=== PATIENT | female | born 1975 | race Caucasian/White ===

== ENCOUNTER → 2017-06-01 21:02 | Outpatient (CLI) | payer BC, MEDICARE, SELFPAY | PROVIDERS: Visit Provider Nurse Practitioner Adult Health | DX: R82.99 Other abnormal findings in urine (principal) | CPT/HCPCS: 87086; 87088; 87186 ==

== ENCOUNTER → 2017-11-30 16:30 | Outpatient (CLI) | payer BC, MEDICARE, SELFPAY ==
--- NOTE | 2017-11-30 | CYSPIN_PTH ---
PATIENT: ALLI PABLO LOC: [facility] U#:[id number] AGE/SX: 49/F ROOM: RE11/30/[address]: MOLLY Gant : 1975 BED: DIS: SPEC #: [id number] RECD: 12/01/17 13:45 STATUS: KALIA ZENY #: [id number] DELVIN: 11/30/17 00:[address]: Janelle Arita NP DEPT: CYTOLOGY RECD BY: Kartik Valdez Tissues: Urine Procedures: Pap Stain (control) Special Stain Group II Cytospin Fluid HEADER OPERATION: Not noted PRE-OP DIAGNOSIS: Hematuria TISSUE SUBMITTED: Urine for cytology DIAGNOSIS CYTOLOGY Urine for cytology (cytospin): Negative for malignant cells. Marked acute inflammation. See comment. LESLI:adan 12/02/17 COMMENT Repeat cytology is suggested if clinically indicated after treatment of inflammation. CYTOLOGY STUDY Slides are reviewed. CYTOLOGY GROSS Received is 10 ml of yellow cloudy fluid labeled with the patient's name and and designated per the requisition as urine. Submitted for cytology preparation. / 12/01/17 TC:2 CPT: 63916
[2017-11-30 17:22] LABS: Cytology, Body Fluid / CSF SEE PATHOLOGY REPORT
== END ==
PROVIDERS: Referring Provider Nurse Practitioner Adult Health; Visit Provider Nurse Practitioner Adult Health
DX: R31.9 Hematuria, unspecified (principal)
CPT/HCPCS: 88108; 88313

== ENCOUNTER → 2017-12-17 17:53 | Outpatient (CLI) | payer BC, MEDICARE, SELFPAY ==
--- NOTE | 2017-12-17 16:45 | CYSPIN_PTH ---
PATIENT: ALLI PABLO LOC: [facility] U#:[id number] AGE/SX: 49/F ROOM: RE12/17/[address]: Dr. Apolinar Eller MD : 1975 BED: DIS: SPEC #: [id number] RECD: 12/18/17 10:58 STATUS: KALIA ZENY #: [id number] DELVIN: 12/17/17 16:[address]: Apolinar Eller DEPT: CYTOLOGY RECD BY: Bebeto Ray Tissues: Urine Procedures: Pap Stain (control) Special Stain Group II Cytospin Fluid HEADER OPERATION: Not noted PRE-OP DIAGNOSIS: UTI, hematuria TISSUE SUBMITTED: Urine for cytology DIAGNOSIS CYTOLOGY Urine for cytology (cytospin): Negative for malignant cells. Marked acute inflammation. See comment. LESLI:adan 12/21/17 COMMENT Please make reference to previous specimen ([id number]), urine for cytology with diagnosis of negative for malignant cells and marked acute inflammation. Repeat cytology is suggested if clinically indicated after treatment of inflammation. CYTOLOGY STUDY Slides are reviewed. CYTOLOGY GROSS Received is 20 ml of cloudy yellow fluid labeled with the patient's name and and designated per the requisition as urine. Submitted for cytology preparation. / 12/18/17 TC:2 CPT: 04273
[2017-12-17 17:56] LABS: Cytology, Body Fluid / CSF SEE PATHOLOGY REPORT
== END ==
PROVIDERS: Referring Provider Urology; Visit Provider Urology
DX: N39.0 Urinary tract infection, site not specified (principal); R31.9 Hematuria, unspecified
CPT/HCPCS: 87086; 87088; 87186; 88108; 88313

== ENCOUNTER → 2017-12-24 14:29 | Outpatient (CLI) | payer BC, MEDICARE, SELFPAY ==
--- NOTE | 2017-12-24 14:36 | CT_ITS ---
STUDY: CT ABDOMEN AND PELVIS WITH CONTRAST REASON FOR EXAM: Female, 42 years old. Painful urination. Possible colovesical fistula. RADIATION DOSAGE (If Supplied By Facility): CTDIvol = ( 15.91 ) mGy, DLP = ( 2611.54 ) mGycm TECHNIQUE: Transaxial images were obtained from the dome of the diaphragm to the symphysis pubis with oral and rectal contrast. 75mL ml of Isovue 300 contrast was administered. Sagittal and coronal images were reconstructed. Individualized dose optimization techniques were used for this CT. COMPARISON: Comparison is made with prior examination dated April 19, 2016. FINDINGS: The visualized lung bases are unremarkable. The visualized portions of the heart are within normal limits. Minimal degree of dilated intrahepatic biliary ducts. The common bile duct is not dilated. The gallbladder is not visualized consistent with prior cholecystectomy. Normal spleen. Normal pancreas. Normal bilateral adrenal glands. Normal right kidney. There is moderate atrophy of the left kidney. There is a 4.5 mm rounded calcification in the anterior lateral aspect of the left kidney. This is unchanged. Normal visualized stomach. Normal small intestine. Moderate amount of fecal material is seen in the colon. There is non-visualization of the appendix. Normal abdominal aorta. Normal inferior vena cava. Normal retroperitoneum. Normal urinary bladder. There is no evidence of a colovesical fistula. There is absence of the uterus consistent with a prior hysterectomy. Normal abdominal wall. Normal osseous structures. CT/Abdomen/Pelvis WITH Contrast IMPRESSION: Moderate amount of fecal material is seen in the colon. Status post cholecystectomy and hysterectomy. There is no evidence of colovesical fistula. Atrophy of the left kidney with tiny calcification along its anterior lateral aspect. Electronically Signed: Tejas Carlson MD at 10:59 EDT Tel [phone], Service support ,
[2017-12-24 15:21] LABS: CREATININE FINGERSTICK 1.1 mg/dL (0.55-1.02)
--- NOTE | 2017-12-24 15:45 | NURSING ---
PT STS SHE HAS A NEW PORT PUT IN AT [facility] MAIN THAT DOESN'T REQUIRE HEPARIN ON [facility]. PT ADAMANT TO NOT USE HEPARIN AT [facility]. PORT FLUSHED WITH ONLY 10 CC NS.
== END ==
PROVIDERS: Family Provider Family Medicine; PCP Family Medicine; Referring Provider Urology; Visit Provider Urology
DX: K52.9 Noninfective gastroenteritis and colitis, unspecified (principal); R39.89 Other symptoms and signs involving the genitourinary system; R93.89 Abnormal findings on diagnostic imaging of other specified body structures
CPT/HCPCS: 74177; Q9967; A4216

== ENCOUNTER 2018-01-01 11:01 | Day surgery (SDC) | payer BC, MEDICARE, SELFPAY ==
[2018-01-01 12:51] VITALS: BP 103/56; PULSE 64; RESP 16; TEMP 36.9; O2SAT 100; BMI 26.7
[2018-01-01 13:13] LABS: Hematocrit 36.8 % (37-47); Mean Corp Hgb Conc 32.6 g/gl (32-36); Mean Corpuscular Hgb 29.8 pg (27.0-32.0); Mean Corpuscular Volume 91.3 fL (81-99); Mean Platelet Vol. 9.4 fl (6.2-12.0); Platelet Count 184 K/mm3 (150-450); RBC Distribution Width SD 43.3 fl (35.1-43.9); Red Blood Count 4.03 M/mm3 (4.2-5.4); White Blood Count 2.4 K/mm3 (4.4-11.0)
[2018-01-01 13:16] LABS: Partial Thromboplast Time 28.1 Seconds (24.1-36.2); Prothrombin Time (Protime)PT. 13.3 SECONDS (11.7-14.9); Scan Indicated on CBC? Y/N NO
[2018-01-01 13:24] LABS: AST(SGOT) 10 U/L (15-37); Alanine Aminotransfer ALT/SGPT 31 U/L (13-56); Albumin, Serum 3.8 g/dL (3.2-5.0); Alkaline Phosphatase 49 U/L (45-117); Bilirubin, Direct 0.17 mg/dL (0.00-0.30); Globulin 3.2 g/dL (2.2-4.2)
--- NOTE | 2018-01-01 14:30 | BLB_PTH ---
PATIENT: ALLI PABLO [place] [facility] [place][id number] AGE/SX: 42/F ROOM: RE01/01/[address]: Dr. Apolinar Eller MD : 1975 BED: DIS: 01/01/2018 SPEC #: [id number] RECD: 01/01/18 16:07 STATUS: KALIA ZENY #: [id number] DLEVIN: 01/01/18 14:[address]: Apolinar Eller DEPT: SURGICAL PATHOLOGY RECD BY: Rakesh Holcomb ENTERED: 01/04/18 11:27 SP TYPE: TURB OTHR DR: Dr. Erik Ibrahim MD Tissues: Urinary bladder, NOS Procedures: Surgery Specimen Level V HEADER OPERATION: Cysto, transurethral resection bladder, [employer] PRE-OP DIAGNOSIS: Hematuria; bladder lesion TISSUE SUBMITTED: Bladder lesion MICROSCOPIC DIAGNOSIS Urinary bladder lesion, TUR: Acute and chronic cystitis with reactive vascular ectasia and epithelial change. No evidence of malignancy. AM:adan 01/05/18 MICROSCOPIC DESCRIPTION Slides are reviewed. GROSS DESCRIPTION Received in fixative is one container labeled with the patient's name and designated bladder lesion. The specimen consists of one irregular fragment of light hi soft tissue that measures 0.3 x 0.1 x 0.1 cm. The specimen is totally submitted in one cassette. / SJ:adan 01/04/18 TC:2 CPT: 77681
--- NOTE | 2018-01-01 15:18 | PCM.DC.URO ---
Discharge Diet: Light diet - advance as tolerated Discharge Activity: Return to Normal Activity, May not drive while taking narcotic pain medications., May Shower Call your doctor if your incision/area has: Continuous Slow Oozing, Sudden Increased Bleeding, Increased Pain/ Swelling, Increased Redness, Foul Smelling Discharge, Swelling at the incision site Suture Line Care: Avoid Pulling/Pushing, Avoid Pinching/Bending Allergies/Adverse Reactions: Allergies adhesive tape Allergy (Verified 01/01/18 13:01) Rash aspirin [ASA] Allergy (Verified 01/01/18 13:01) Unknown cefpodoxime Allergy (Verified 01/01/18 13:01) Rash cephalexin [From Keflex] Allergy (Verified 01/01/18 13:01) Upset Stomach ciprofloxacin Allergy (Verified 01/01/18 13:01) Hives diclofenac Allergy (Verified 01/01/18 13:01) Rash gabapentin [From Neurontin] Allergy (Verified 01/01/18 13:01) Unknown latex Allergy (Verified 01/01/18 13:01) Rash levofloxacin [From Levaquin] Allergy (Verified 01/01/18 13:01) redness,rash nitrofurantoin Allergy (Verified 01/01/18 13:01) Unknown Penicillins Allergy (Verified 01/01/18 13:01) Anaphylaxis prednisone Allergy (Verified 01/01/18 13:01) Unknown pregabalin Allergy (Verified 01/01/18 13:01) Unknown norfloxacin [From Noroxin] Adverse Reaction (Verified 01/01/18 13:01) Upset Stomach phenytoin [From Dilantin] Adverse Reaction (Verified 01/01/18 13:01) loss of balance alvogen Allergy (Uncoded 01/01/18 13:01) Rash Medications to take at Discharge Baclofen [Lioresal] 10 mg PO QHS 04/15/16 Cholecalciferol (Vitamin D3) [Vitamin D3] 5,000 unit PO DAILY 04/15/16 Lisinopril [Zestril] 5 mg PO QODAY 04/15/16 Lorazepam [Ativan] 1 mg PO QHS 04/15/16 Lysine [l-Lysine] 1,000 mg PO DAILY 04/15/16 Mirabegron [Myrbetriq] 50 mg PO DAILY 04/15/16 Solifenacin Succinate [Vesicare] 10 mg PO QHS 04/15/16 Topiramate [Topamax] 200 mg PO QHS 04/15/16 Ascorbic Acid [Vitamin C] 1,000 mg PO QHS 12/28/17 Coconut Oil 2,000 mg PO DAILY 12/28/17 Cranberry Conc/Ascorbic Acid [Cranberry 12,600 mg Softgel] 1 each PO DAILY 12/28/17 Herbal Drugs [Colon Herbal Cleanser] 2 each PO QHS 12/28/17 Tizanidine HCl [Zanaflex] 2 mg PO QHS 12/28/17 Hydrocodone Bitart/Apap 5-325 [[place] 5MG-325MG] 1 tab PO Q4H PRN PRN 5 Days #10 tab 01/01/18 Hydrocodone/Acetaminophen [Hebron 5-325 Tablet] 1 ea PO Q4H PRN PRN 3 Days #10 tab 01/01/18 The following prescriptions were given: Hydrocodone Bitart/Apap 5-325 [Hebron 5MG-325MG] 1 tab PO Q4H PRN PRN 5 Days #10 tab PRN Reason: Pain Hydrocodone/Acetaminophen [Hebron 5-325 Tablet] 1 ea PO Q4H PRN PRN 3 Days #10 tab PRN Reason: Pain Primary Care Physician: Erik Ibrahim MD [Primary Care Provider] - Test Results: Test results from this visit will be discussed in further detail at your follow-up appointment, if applicable. Please Follow Up With: Apolinar Eller MD When: in 2 weeks, please call to make an appointment.
--- NOTE | 2018-01-01 15:21 | OP.PCM_ITS ---
Report of Operation Date of Procedure: 01/01/18 Pre-Operative Diagnosis: Gross hematuria and bladder lesion erythema on the left lateral wall the bladder Post-Operative Diagnosis: Same Surgery/Procedure Performed:: Transurethral resection of this bladder lesion and rollerball cauterization. Description of Surgical Findings:: 42-year-old female taken back to the operating room at the smooth induction of general anesthesia she was placed supine on the table the urethra vaginal area prepped and draped in usual sterile fashion on bimanual exam she had no palpable hard masses or nodules or abnormalities ureter was nice and soft the bladder is nice and soft, I then went to the bladder with a 24 Hungarian noncontinuous flow cystoscope inspected the bladder trigone was normal she did have cystitis cystica throughout the bladder with raised cystic lesions throughout the bladder but in the left lateral wall the bladder she had a very red dark red at the erythematous lesion somewhat concerning for CIS this was seen in the office on cystoscopy. I then switched over to the resectoscope resected this reddish lesion tissue was sent off as a specimen and then used a rollerball to then rollerball the reddish lesion on the lateral side of the bladder. After this was completed there was no bleeding the bladder was drained no perforation of the bladder. Left no catheter and the patient and patient's anesthetic was reversed taken back to PACU good condition she will follow-up in the office about 2 weeks to review the results of the tissue report. Type of Anesthesia:: General Specimen's removed: tissue from bladder Estimated Blood Loss (mL): minimal. - Admit VTE Documentation VTE Present on Admission: No VTE Mechan Device Prophylaxis: SCD's VTE Pharm Prophylaxis ordered?: No
[2018-01-01 15:24] VITALS: BP 100/59; BP 103/56; PULSE 77; RESP 16; TEMP 36.2; O2SAT 97
[2018-01-01 15:30] VITALS: BP 103/56; BP 93/59; PULSE 58; RESP 16; O2SAT 96
[2018-01-01] MEDS: Ketorolac 30 MG/ML Syringe IV (15:35)
[2018-01-01 15:45] VITALS: BP 103/56; BP 88/62; PULSE 54; RESP 16; O2SAT 95
[2018-01-01 16:00] VITALS: BP 103/56; BP 92/65; BP 93/57; PULSE 57; PULSE 59; RESP 16; TEMP 36.3; O2SAT 97; O2SAT 98
[2018-01-01] MEDS: HYDROcodone Bitartrate/Apap 5/325 Tablet PO (16:27)
[2018-01-01 18:40] VITALS: BP 103/56; BP 87/56; PULSE 50; RESP 16; TEMP 36.1; O2SAT 100
== END 2018-01-01 18:40 | disposition home or self-care (01) ==
LOC: SDC 11:01
PROVIDERS: Anesthesiology; Family Provider Family Medicine; PCP Family Medicine; Referring Provider Urology; Visit Provider Urology
PROC: 0TBB8ZZ Excision of Bladder, Via Natural or Artificial Opening Endoscopic (ICD-10-PCS; CPT 52240; principal; 2018-01-01 14:20)
DX: N30.01 Acute cystitis with hematuria (principal); N30.21 Other chronic cystitis with hematuria; J45.20 Mild intermittent asthma, uncomplicated; F41.9 Anxiety disorder, unspecified; G35 Multiple sclerosis; Z79.899 Other long term (current) drug therapy
CPT/HCPCS: 00912; 52240; 36415; 80076; 85027; 85610; 85730; 88307; J7120; A4216; J2405

== ENCOUNTER 2018-01-04 15:49 | Inpatient (IN) | payer BC, MEDICARE, SELFPAY ==
[2018-01-04 15:50] VITALS: BP 110/75; PULSE 94; RESP 18; TEMP 37; O2SAT 100; BMI 26.2
[2018-01-04 16:10] VITALS: BP 120/82; PULSE 98; RESP 16; O2SAT 99
[2018-01-04 16:58] LABS: Mucous, Urine 0 SEEN /hpf (<or=2+)
[2018-01-04 17:04] LABS: Color, Urine Yellow (Yellow); Glucose, Dipstick Normal (Normal); Leukocyte Esterase-Dipstick 500 /ul (Negative); Nitrite-Dipstick Positive (Negative); Occult Blood-Urine 250 /ul (Negative); Protein-Dipstick 100 mg/dl (Negative); Urine Clarity Cloudy (Clear); Urine Urobilinogen 1 mg/dl (Normal)
[2018-01-04 17:08] LABS: Ketone-Dipstick 150 mg/dl (Negative); Urine Bilirubin Dipstick 1 mg/dL (Negative)
[2018-01-04] MEDS: 0.9% Normal Saline 1,000 ML 1000 ML IV (17:11)
[2018-01-04] MEDS: proMETHazine 25 MG/ML Syringe 6.25 MG IV (17:11)
[2018-01-04 17:18] LABS: Bacteria 4+ /hpf (None Seen); Red Blood Cells-Urine 25-50 SEEN /hpf (0-5); Squamous Epithelial Cells - UA 0-5 SEEN /hpf (5-10); White Blood Cells >100 SEEN /hpf (0-5)
[2018-01-04 17:23] LABS: Absolute Lymphocyte Count 0.98 X10^3/ul (0.83-4.51); Absolute Neutrophil Count 3.4 X10^3/uL (2.0-7.7); Basophil# 0.01 X10^3/uL; Basophil% 0.2 % (0-1); Hematocrit 34.5 % (37-47); Hemoglobin 11.2 g/dl (12.0-15.0); Lymphocyte # 0.98 X10^3/ul (4.0); Lymphocyte % 20.6 % (19-41); Mean Corp Hgb Conc 32.5 g/gl (32-36); Mean Corpuscular Hgb 29.8 pg (27.0-32.0); Mean Corpuscular Volume 91.8 fL (81-99); Mean Platelet Vol. 9.5 fl (6.2-12.0); Monocyte# 0.37 X10^3/uL; Monocyte% 7.8 % (0-10); Neutrophil # 3.39 X10^3/uL (2.7-7.7); Neutrophil % 71.4 % (47-70); Platelet Count 155 K/mm3 (150-450); RBC Distribution Width CV 12.6 % (11.6-14.6); RBC Distribution Width SD 41.9 fl (35.1-43.9); Red Blood Count 3.76 M/mm3 (4.2-5.4); White Blood Count 4.8 K/mm3 (4.4-11.0)
[2018-01-04 17:25] LABS: POSITIVE COUNT NO; POSITIVE DIFFERENTIAL NO; POSITIVE MORPHOLOGY NO
[2018-01-04 17:31] LABS: Anion Gap 13 (5-15); BUN 17 mg/dL (7-18); BUN/Creat Ratio 13.9 RATIO (10-20); Calcium,Total 8.7 mg/dL (8.5-10.1); Chloride 106 mmol/L (98-107); Creatinine, Serum 1.22 mg/dL (0.55-1.02); EST Glomerular Filtration Rate 51 mL/min (>60); Est Glom Filt Rate - Afr Amer 62 mL/min (>60); Estimated Creatinine Clearance 57.22 ml/min; Glucose 70 mg/dL (74-106); Potassium 3.9 mmol/L (3.5-5.1); Sodium Level 140 mmol/L (136-145)
[2018-01-04 18:00] VITALS: BP 105/64; PULSE 100; RESP 20; O2SAT 99
--- NOTE | 2018-01-04 18:08 | ED.VISSUMM ---
- ER Visit Summary Date of Service: 01/04/18 Chief Complaint: Abdominal pain, foul smelling urine History of Present Illness: The patient is a 42 F with history of MS. Patient had a bladder biopsy on January [address] Eller. Patient reports having a poor appetite and nausea all weekend. She does report dysuria and foul-smelling urine. She denies hematuria. She has not noted a fever, but states she rarely gets fevers. Physical Examination: Blood pressure is 120/82, temperature 98.6, heart rate 98, respiratory rate 16, pulse ox 99% on room air. Patient sitting upright in bed. She appears ill but not toxic. Head and neck examination unremarkable. Heart is regular rate and rhythm. Lung sounds are clear. Abdomen is soft with mild tenderness in the suprapubic region. No guarding or rebound. Hypoactive bowel sounds are noted throughout. Test Results: CBC is unremarkable. Chemistry studies significant for glucose of 70 and a creatinine 1.22. Urinalysis is positive for nitrites, grade than 100 white cells with 4+ bacteria. Emergency Department Course and Treatment: Urine culture has been sent. Patient was given IV fluids and Phenergan. Patient has multiple antibiotic allergies. I did review an infectious disease note from last year when she was given meropenem for similar infection. She is dosed with meropenem at this time. I spoke with Dr. Eller and he will admit her to the floor. Treatment Plan: [] Disposition: Admit Impression: Cystitis This note was generated with [employer] dictation software. It may contain incorrect words, spelling, and punctuation that were not noted in review of the chart prior to signing ED Disposition - Plan for ED Patient: Chief Complaint: General Illness Referrals: Erik Ibrahim MD [Primary Care Provider] -
[2018-01-04] MEDS: 0.9% Normal Saline 1,000 ML 150 ML IV (18:10)
--- NOTE | 2018-01-04 18:33 | PCM.CONS.GEN ---
Problem List (1) UTI (urinary tract infection) Status: Acute Qualifiers: Urinary tract infection type: acute pyelonephritis Qualified Code(s): N10 - Acute pyelonephritis (2) Overweight (BMI 25.0-29.9) Status: Chronic (3) Migraines Status: Chronic Qualifiers: Migraine type: unspecified Status migrainosus presence: without status migrainosus Intractability: not intractable Qualified Code(s): G43.909 - Migraine, unspecified, not intractable, without status migrainosus (4) Type 2 diabetes mellitus Status: Chronic Qualifiers: Diabetes mellitus nursing home insulin use: without nursing home use Diabetes mellitus complication status: without complication Qualified Code(s): E11.9 - Type 2 diabetes mellitus without complications (5) Multiple sclerosis Status: Chronic Reason for Consult Date of Consultation: 01/04/18 Reason for Consultation: Medical management History of Present Illness: The patient is a 42 y/o F w/ PMHx: Overweight, Multiple Sclerosis following w/ Dr. Jono Morrow, Chronic Migraines, CKD stage III (Baseline Cr 1.4), Diabetes mellitus type II history noted (Hgb 07/2013 5.3%) with history of recent bladder biopsy per Dr. Eller on 01/01/18 with following onset decreased appetite, nausea without emesis and severe suprapubic pain w/ increased urinary frequency and foul smelling urine. In the ED work-up noted T 98.6, heart rate 100, BP 105/64, respiratory rate 18, 100% on room air, CBC with WBC 4.8, hemoglobin 11.2, platelet 155 without market shift, BMP with BUN/creatinine 17/1.22, glucose 70, urinalysis notably remarkable with pending urine culture. In the ED patient administered normal saline, Phenergan as well as IV meropenem given allergies. ED noted to hospitalist physician intention for Dr. Eller to consult to the hospitalist service for medical management. Reviewed patient with Dr. Eller upon her admission. Past Medical History Past Medical History (Chronic Problems): Chronic Problems Overweight (BMI 25.0-29.9) (Chronic) Migraines (Chronic) Type 2 diabetes mellitus (Chronic) Multiple sclerosis (Chronic) Allergies adhesive tape Allergy (Verified 01/04/18 15:53) Rash aspirin [ASA] Allergy (Verified 01/04/18 15:53) Unknown cefpodoxime Allergy (Verified 01/04/18 15:53) Rash ciprofloxacin Allergy (Verified 01/04/18 15:53) Hives diclofenac Allergy (Verified 01/04/18 15:53) Rash gabapentin [From Neurontin] Allergy (Verified 01/04/18 15:53) Unknown latex Allergy (Verified 01/04/18 15:53) Rash levofloxacin [From Levaquin] Allergy (Verified 01/04/18 15:53) redness,rash nitrofurantoin Allergy (Verified 01/04/18 15:53) Unknown Penicillins Allergy (Verified 01/04/18 15:53) Anaphylaxis prednisone Allergy (Verified 01/04/18 15:53) Unknown pregabalin Allergy (Verified 01/04/18 15:53) Unknown cephalexin [From Keflex] Adverse Reaction (Verified 01/04/18 17:55) Upset Stomach norfloxacin [From Noroxin] Adverse Reaction (Verified 01/04/18 15:53) Upset Stomach phenytoin [From Dilantin] Adverse Reaction (Verified 01/04/18 15:53) loss of balance alvogen Allergy (Uncoded 01/04/18 15:53) Rash Home Medications: Ambulatory Orders Medication Instructions Recorded Baclofen [Lioresal] 10 mg PO QHS 04/15/16 Cholecalciferol (Vitamin D3) 5,000 unit PO DAILY 04/15/16 [Vitamin D3] Lisinopril [Zestril] 5 mg PO QODAY 04/15/16 Lorazepam [Ativan] 1 mg PO QHS 04/15/16 Lysine [l-Lysine] 1,000 mg PO DAILY 04/15/16 Mirabegron [Myrbetriq] 50 mg PO DAILY 04/15/16 Solifenacin Succinate [Vesicare] 10 mg PO QHS 04/15/16 Topiramate [Topamax] 200 mg PO QHS 04/15/16 Coconut Oil 2,000 mg PO DAILY 12/28/17 Cranberry Conc/Ascorbic Acid 1 each PO DAILY 12/28/17 [Cranberry 12,600 mg Softgel] Herbal Drugs [Colon Herbal 2 each PO QHS 12/28/17 Cleanser] Tizanidine HCl [Zanaflex] 2 mg PO QHS 12/28/17 Hydrocodone Bitart/Apap 5-325 1 tab PO Q4H PRN PRN 5 Days #10 tab 01/01/18 [[place]ulvane 5MG-325MG] Phenazopyridine HCl [Pyridium] 200 mg PO TID #20 tab 01/01/18 Ascorbic Acid [C-1000] 1,000 mg PO QHS 01/04/18 Ondansetron [Zofran Odt] 4 mg PO TID PRN 01/04/18 Surgical History: - - x2, bladder sling surgery with mesh, hysterectomy, cholecystectomy, tonsillectomy, hammertoe surgery bilaterally, recent bladder biopsy. 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 Paternal History Items: Cancer - Bladder cancer, COPD, Diabetes, Heart Disease Offspring History Items: - - mental health Review of Systems Constitutional: Reports: Anorexia, Chills, Malaise, Weakness, Fatigue. Denies: Fever, Weight Change HEENT: Denies: Head Aches, Sinus Congestion, Sinus Drainage Cardiovascular: Denies: Chest Pain, Palpitations Respiratory: Denies: Cough, Shortness of breath at rest, Sputum production Gastrointestinal: Reports: Abdominal Pain, Nausea. Denies: Vomiting Genitourinary: Reports: Dysuria, Frequency, Urgency Musculoskeletal: Denies: Joint Pain, Joint Tenderness Skin: Denies: Rash, Wounds Neurological: Denies: Numbness, Tingling, Focal weakness Psychiatric: Reports: Anxiety. Denies: Depression, Homicidal Ideations, Suicidal Ideations Hematologic/ Lymphatic: Reports: Anemia. Denies: Easy Bruising, Easy Bleeding Subjective: Laying in the ED bed, fatigued and ill-appearing. Objective: Physical Examination: General: awake, alert, oriented x 3 and cooperative, seated upright in the ED bed, fatigued and ill-appearing. Skin: normal color, turgor, no icterus, cyanosis. HEENT: AT/NC, EOMI, PERRLA, dry MM, no carotid bruits or JVD noted. Lungs: CTA bilaterally, moderate effort, mild decrease BL bases, no rales, ronchi or wheezing. Heart: Mildly tachycardic w/ regular rhythm; no gallop, rub audible. Abdomen: soft, severe suprapubic TTP, ND, hypoactive BS, difficult to assess HSM secondary to pain. Extremities: no cyanosis, clubbing, or edema. Neurological: patient awake, alert, oriented x 3; cognitive function intact; pupils equally reactive to light and accomodation; cranial nerves II-XII grossly normal, moving all 4 extremities, no focal deficits, strength severely globally decreased secondary to acute presentation. Psychiatric: affect appears fatigued, no acute evidence of depressive or anxiety feelings. - Physical Exam Vital Signs Temp Pulse Resp BP Pulse Ox 98.6 F 100 20 H 105/64 99 01/04/18 15:50 01/04/18 18:00 01/04/18 18:00 01/04/18 18:00 01/04/18 18:00 Oxygen Delivery Method Room Air Weight: 167 lb Body Mass Index (BMI) 26.2 Laboratory Tests Past 24 Hrs 01/04/18 01/04/18 01/04/18 16:55 17:03 17:03 WBC 4.8 RBC 3.76 L Hgb 11.2 L Hct 34.5 L MCV 91.8 MCH 29.8 MCHC 32.5 RDW 12.6 RDW Differential 41.9 Plt Count 155 MPV 9.5 Immature Gran % (Auto) 0.000 Neut % (Auto) 71.4 H Lymph % (Auto) 20.6 Mcleod % (Auto) 7.8 Eos % (Auto) 0.0 Baso % (Auto) 0.2 Absolute Neuts (auto) 3.4 Absolute Lymphs (auto) 0.98 Total Counted Not Reportable Sodium 140 Potassium 3.9 Chloride 106 Carbon Dioxide 21.0 Anion Gap 13 BUN 17 Creatinine 1.22 H Estim Creat Clear Calc 57.22 Est GFR (MDRD) Af Amer 62 Est GFR (MDRD) Non-Af 51 L BUN/Creatinine Ratio 13.9 Glucose 70 L Calcium 8.7 Urine Color Yellow Urine Clarity Cloudy Urine pH 5.0 Ur Specific Baskin 1.020 Urine Protein 100 H Urine Glucose (UA) Normal Urine Ketones 150 H Urine Occult Blood 250 H Urine Nitrite Positive H Urine Bilirubin 1 H Urine Urobilinogen 1 H Ur Leukocyte Esterase 500 H Urine RBC 25-50 SEEN Urine WBC >100 SEEN Ur Squamous Epith Cells 0-5 SEEN Urine Bacteria 4+ Urine Mucus 0 SEEN Assessment/Plan All Active Problems Pyelonephritis (Acute) UTI (urinary tract infection) (Acute) The patient is a 42 y/o F w/ PMHx: Overweight, Multiple Sclerosis following w/ Dr. Jono Morrow, Chronic Migraines, CKD stage III, ? Diabetes mellitus type II with history of recent bladder biopsy per Dr. Eller on 01/01/18 with following onset decreased appetite, nausea without emesis and severe suprapubic pain w/ increased urinary frequency and foul smelling urine. (1) Acute Complicated Urinary Tract Infection s/p Recent Bladder Bx: Admitted to MS per Dr. Eller, medicine consultation requested, UA upon ED evaluation remarkable, pending UCx, admission CBC not marked but severe appearing UA as noted, continue IVFs, monitor I/Os, continue IV meropenem given allergies w/ transition as able pending sensitivities and speciation. ID consulted, pending per Dr. Eller preference. No Bld cx were obtained in the ED prior to abx regimen. Requested bladder scans for retention w/ straight catheterization if appropriate. (2) Chronic Kidney Disease Stage III: Admission BUN/Cr 17/1.22, baseline renal function 1.4, repeat BMP in AM. (3) Multiple Sclerosis: Patient following w/ Dr. Jono Morrow, continue home mirabegron on regimen. (4) Chronic migraines: Continue home Topamax regimen. (5) ? Diabetes mellitus type II: Noted history, last HgbA1c 5.3% 2013, possibly only diet controlled, HgBA1c pending, allowance of clears secondary to severity of nausea and may ascertain further needs pending level. (6) Overweight: Lifestyle and diet changes encouraged. (7) DVT prophylaxis: SCDs, heparin. Code Visit Office Visits / Consults: [id number] IP Consult L3
--- NOTE | 2018-01-04 18:39 | CON.PCM_ITS ---
Problem List (1) UTI (urinary tract infection) Status: Acute Qualifiers: Urinary tract infection type: acute pyelonephritis Qualified Code(s): N10 - Acute pyelonephritis (2) Overweight (BMI 25.0-29.9) Status: Chronic (3) Migraines Status: Chronic Qualifiers: Migraine type: unspecified Status migrainosus presence: without status mi grainosus Intractability: not intractable Qualified Code(s): G43.909 - Migraine, unspecified, not intractable, without status migrainosus (4) Type 2 diabetes mellitus Status: Chronic Qualifiers: Diabetes mellitus usp insulin use: without usp use Diabetes mellitus complication status: without complication Qualified Code(s): E11.9 - Type 2 diabetes mellitus without complications (5) Multiple sclerosis Status: Chronic Reason for Consult Date of Consultation: 01/04/18 Reason for Consultation: Medical management History of Present Illness: The patient is a 42 y/o F w/ PMHx: Overweight, Multiple Sclerosis following w/ Dr. Jono Morrow, Chronic Migraines, CKD stage III (Baseline Cr 1.4), Diabetes mellitus type II history noted (Hgb 07/2013 5.3%) with history of recent bladder biopsy per Dr. Eller on 01/01/18 with following onset decreased appetite, nausea without emesis and severe suprapubic pain w/ increased urinary frequency and foul smelling urine. In the ED work-up noted T 98.6, heart rate 100, BP 105/64, respiratory rate 18, 100% on room air, CBC with WBC 4.8, hemoglobin 11.2, platelet 155 without market shift, BMP with BUN/creatinine 17/1.22, glucose 70, urinalysis notably remarkable with pending urine culture. In the ED patient administered normal saline, Phenergan as well as IV meropenem given allergies. ED noted to hospitalist physician intention for Dr. Eller to consult to the hospitalist service for medical management. Reviewed patient with Dr. Eller upon her admission. Past Medical History Past Medical History (Chronic Problems): Chronic Problems Overweight (BMI 25.0-29.9) (Chronic) Migraines (Chronic) Type 2 diabetes mellitus (Chronic) Multiple sclerosis (Chronic) Allergies adhesive tape Allergy (Verified 01/04/18 15:53) Rash aspirin [ASA] Allergy (Verified 01/04/18 15:53) Unknown cefpodoxime Allergy (Verified 01/04/18 15:53) Rash ciprofloxacin Allergy (Verified 01/04/18 15:53) Hives diclofenac Allergy (Verified 01/04/18 15:53) Rash gabapentin [From Neurontin] Allergy (Verified 01/04/18 15:53) Unknown latex Allergy (Verified 01/04/18 15:53) Rash levofloxacin [From Levaquin] Allergy (Verified 01/04/18 15:53) redness,rash nitrofurantoin Allergy (Verified 01/04/18 15:53) Unknown Penicillins Allergy (Verified 01/04/18 15:53) Anaphylaxis prednisone Allergy (Verified 01/04/18 15:53) Unknown pregabalin Allergy (Verified 01/04/18 15:53) Unknown cephalexin [From Keflex] Adverse Reaction (Verified 01/04/18 17:55) Upset Stomach norfloxacin [From Noroxin] Adverse Reaction (Verified 01/04/18 15:53) Upset Stomach phenytoin [From Dilantin] Adverse Reaction (Verified 01/04/18 15:53) loss of balance alvogen Allergy (Uncoded 01/04/18 15:53) Rash Home Medications: Ambulatory Orders Medication Instructions Recorded Baclofen [Lioresal] 10 mg PO QHS 04/15/16 Cholecalciferol (Vitamin D3) 5,000 unit PO DAILY 04/15/16 [Vitamin D3] Lisinopril [Zestril] 5 mg PO QODAY 04/15/16 Lorazepam [Ativan] 1 mg PO QHS 04/15/16 Lysine [l-Lysine] 1,000 mg PO DAILY 04/15/16 Mirabegron [Myrbetriq] 50 mg PO DAILY 04/15/16 Solifenacin Succinate [Vesicare] 10 mg PO QHS 04/15/16 Topiramate [Topamax] 200 mg PO QHS 04/15/16 Coconut Oil 2,000 mg PO DAILY 12/28/17 Cranberry Conc/Ascorbic Acid 1 each PO DAILY 12/28/17 [Cranberry 12,600 mg Softgel] Herbal Drugs [Colon Herbal 2 each PO QHS 12/28/17 Cleanser] Tizanidine HCl [Zanaflex] 2 mg PO QHS 12/28/17 Hydrocodone Bitart/Apap 5-325 1 tab PO Q4H PRN PRN 5 Days #10 tab 01/01/18 [[place] 5MG-325MG] Phenazopyridine HCl [Pyridium] 200 mg PO TID #20 tab 01/01/18 Ascorbic Acid [C-1000] 1,000 mg PO QHS 01/04/18 Ondansetron [Zofran Odt] 4 mg PO TID PRN 01/04/18 Surgical History: - - x2, bladder sling surgery with mesh, hysterectomy, cholecystectomy, tonsillectomy, hammertoe surgery bilaterally, recent bladder biopsy. 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 Paternal History Items: Cancer - Bladder cancer, COPD, Diabetes, Heart Disease Offspring History Items: - - mental health Review of Systems Constitutional: Reports: Anorexia, Chills, Malaise, Weakness, Fatigue. Denies: Fever, Weight Change HEENT: Denies: Head Aches, Sinus Congestion, Sinus Drainage Cardiovascular: Denies: Chest Pain, Palpitations Respiratory: Denies: Cough, Shortness of breath at rest, Sputum production Gastrointestinal: Reports: Abdominal Pain, Nausea. Denies: Vomiting Genitourinary: Reports: Dysuria, Frequency, Urgency Musculoskeletal: Denies: Joint Pain, Joint Tenderness Skin: Denies: Rash, Wounds Neurological: Denies: Numbness, Tingling, Focal weakness Psychiatric: Reports: Anxiety. Denies: Depression, Homicidal Ideations, Suicidal Ideations Hematologic/ Lymphatic: Reports: Anemia. Denies: Easy Bruising, Easy Bleeding Subjective: Laying in the ED bed, fatigued and ill-appearing. Objective: Physical Examination: General: awake, alert, oriented x 3 and cooperative, seated upright in the ED bed, fatigued and ill-appearing. Skin: normal color, turgor, no icterus, cyanosis. HEENT: AT/NC, EOMI, PERRLA, dry MM, no carotid bruits or JVD noted. Lungs: CTA bilaterally, moderate effort, mild decrease BL bases, no rales, ronchi or wheezing. Heart: Mildly tachycardic w/ regular rhythm; no gallop, rub audible. Abdomen: soft, severe suprapubic TTP, ND, hypoactive BS, difficult to assess HSM secondary to pain. Extremities: no cyanosis, clubbing, or edema. Neurological: patient awake, alert, oriented x 3; cognitive function intact; pupils equally reactive to light and accomodation; cranial nerves II-XII grossly normal, moving all 4 extremities, no focal deficits, strength severely globally decreased secondary to acute presentation. Psychiatric: affect appears fatigued, no acute evidence of depressive or anxiety feelings. - Physical Exam Vital Signs Temp Pulse Resp BP Pulse Ox 98.6 F 100 20 H 105/64 99 01/04/18 15:50 01/04/18 18:00 01/04/18 18:00 01/04/18 18:00 01/04/18 18:00 Oxygen Delivery Method Room Air Weight: 167 lb Body Mass Index (BMI) 26.2 Laboratory Tests Past 24 Hrs 01/04/18 01/04/18 01/04/18 16:55 17:03 17:03 WBC 4.8 RBC 3.76 L Hgb 11.2 L Hct 34.5 L MCV 91.8 MCH 29.8 MCHC 32.5 RDW 12.6 RDW Differential 41.9 Plt Count 155 MPV 9.5 Immature Gran % (Auto) 0.000 Neut % (Auto) 71.4 H Lymph % (Auto) 20.6 [place] % (Auto) 7.8 Eos % (Auto) 0.0 Baso % (Auto) 0.2 Absolute Neuts (auto) 3.4 Absolute Lymphs (auto) 0.98 Total Counted Not Reportable Sodium 140 Potassium 3.9 Chloride 106 Carbon Dioxide 21.0 Anion Gap 13 BUN 17 Creatinine 1.22 H Estim Creat Clear Calc 57.22 Est GFR (MDRD) Af Amer 62 Est GFR (MDRD) Non-Af 51 L BUN/Creatinine Ratio 13.9 Glucose 70 L Calcium 8.7 Urine Color Yellow Urine Clarity Cloudy Urine pH 5.0 Ur Specific [place] 1.020 Urine Protein 100 H Urine Glucose (UA) Normal Urine Ketones 150 H Urine Occult Blood 250 H Urine Nitrite Positive H Urine Bilirubin 1 H Urine Urobilinogen 1 H Ur Leukocyte Esterase 500 H Urine RBC 25-50 SEEN Urine WBC >100 SEEN Ur Squamous Epith Cells 0-5 SEEN Urine Bacteria 4+ Urine Mucus 0 SEEN Assessment/Plan All Active Problems Pyelonephritis (Acute) UTI (urinary tract infection) (Acute) The patient is a 42 y/o F w/ PMHx: Overweight, Multiple Sclerosis following w/ Dr. Jono Morrow, Chronic Migraines, CKD stage III, ? Diabetes mellitus type II with history of recent bladder biopsy per Dr. Eller on 01/01/18 with following onset decreased appetite, nausea without emesis and severe suprapubic pain w/ increased urinary frequency and foul smelling urine. (1) Acute Complicated Urinary Tract Infection s/p Recent Bladder Bx: Admitted to [facility] per Dr. Eller, medicine consultation requested, UA upon ED evaluation remarkable, pending UCx, admission CBC not marked but severe appearing UA as noted, continue IVFs, monitor I/Os, continue IV meropenem given allergies w/ transition as able pending sensitivities and speciation. ID consulted, pending per Dr. Eller preference. No Bld cx were obtained in the ED prior to abx regimen. Requested bladder scans for retention w/ straight catheterization if appropriate. (2) Chronic Kidney Disease Stage III: Admission BUN/Cr 17/1.22, baseline renal function 1.4, repeat BMP in AM. (3) Multiple Sclerosis: Patient following w/ Dr. Jono Morrow, continue home mirabegron on regimen. (4) Chronic migraines: Continue home Topamax regimen. (5) ? Diabetes mellitus type II: Noted history, last HgbA1c 5.3% 2013, possibly only diet controlled, HgBA1c pending, allowance of clears secondary to severity of nausea and may ascertain further needs pending level. (6) Overweight: Lifestyle and diet changes encouraged. (7) DVT prophylaxis: SCDs, heparin. Code Visit Office Visits / Consults: [id number] IP Consult L3
[2018-01-04 18:59] VITALS: BMI 26.2
[2018-01-04 19:36] VITALS: BP 118/57; PULSE 88; RESP 22; TEMP 37.1; O2SAT 100
[2018-01-04 20:19] LABS: Hemoglobin A1c 5.2 % (4.2-6.3)
[2018-01-04] MEDS: Morphine 4 MG/ML Syringe IV (21:13)
[2018-01-04] MEDS: Ondansetron 4 MG/2 ML Vial IV (21:13)
[2018-01-05] MEDS: Morphine 4 MG/ML Syringe IV ×2 (00:28→05:49)
[2018-01-05 01:42] VITALS: BP 99/51; PULSE 88; RESP 18; TEMP 37.1; O2SAT 97
[2018-01-05] MEDS: 0.9% Normal Saline 1,000 ML 125 ML IV (05:17)
[2018-01-05 05:41] LABS: Absolute Lymphocyte Count 0.83 X10^3/ul (0.83-4.51); Absolute Neutrophil Count 2.9 X10^3/uL (2.0-7.7); Basophil# 0.01 X10^3/uL; Basophil% 0.3 % (0-1); Hematocrit 31.8 % (37-47); Hemoglobin 10.2 g/dl (12.0-15.0); Lymphocyte # 0.83 X10^3/ul (4.0); Lymphocyte % 20.8 % (19-41); Mean Corp Hgb Conc 32.1 g/gl (32-36); Mean Corpuscular Hgb 29.7 pg (27.0-32.0); Mean Corpuscular Volume 92.7 fL (81-99); Mean Platelet Vol. 9.7 fl (6.2-12.0); Monocyte# 0.31 X10^3/uL; Monocyte% 7.8 % (0-10); Neutrophil # 2.85 X10^3/uL (2.7-7.7); Neutrophil % 71.1 % (47-70); Platelet Count 154 K/mm3 (150-450); RBC Distribution Width CV 12.9 % (11.6-14.6); RBC Distribution Width SD 43.6 fl (35.1-43.9); Red Blood Count 3.43 M/mm3 (4.2-5.4)
[2018-01-05 05:42] LABS: POSITIVE COUNT NO; POSITIVE DIFFERENTIAL NO; POSITIVE MORPHOLOGY NO
[2018-01-05] MEDS: Ondansetron 4 MG/2 ML Vial IV ×2 (05:49→15:51)
[2018-01-05 05:57] LABS: Anion Gap 13 (5-15); BUN 21 mg/dL (7-18); BUN/Creat Ratio 17.5 RATIO (10-20); Calcium,Total 8.3 mg/dL (8.5-10.1); Chloride 112 mmol/L (98-107); EST Glomerular Filtration Rate 52 mL/min (>60); Est Glom Filt Rate - Afr Amer 63 mL/min (>60); Estimated Creatinine Clearance 58.18 ml/min; Glucose 60 mg/dL (74-106); Potassium 4.2 mmol/L (3.5-5.1); Sodium Level 144 mmol/L (136-145)
[2018-01-05] MEDS: Phenazopyridine 95 MG Tablet 190 MG PO ×3 (06:30→21:05)
--- NOTE | 2018-01-05 06:48 | PCM.HP.STD ---
History of Present Illness Date of Admission: 01/05/18 Chief Complaint: Not feeling well and nausea can keep food down dehydration The patient is a 42 year old female who underwent a cystoscopy bladder biopsy and fulguration of the lesion in the bladder she has a history of recurrent very resistant bladder infections. She was treated preoperatively with appropriate course of antibiotics for her urinary tract infection she was given preoperative antibiotics for the procedure. She underwent to the procedure last week uneventfully but called and went to the emergency room with nausea vomiting. She is admitted for supposed UTI we will see what the cultures reveal. Urine test was positive for blood and nitrite and leukocytes but she did had recent bladder surgery sometimes this could be positive as a result of surgery, will await cultures nevertheless at this point will admit the patient because she is not tolerating food and liquids and also has nausea and vomiting. Other potential etiologies of her admission could just be intolerance nausea vomiting because of bladder pain discomfort pain medicine and recent procedure. Past Medical History Past Medical History (Chronic Problems): Chronic Problems Overweight (BMI 25.0-29.9) (Chronic) Migraines (Chronic) Type 2 diabetes mellitus (Chronic) Multiple sclerosis (Chronic) Allergies adhesive tape Allergy (Verified 01/04/18 15:53) Rash aspirin [ASA] Allergy (Verified 01/04/18 15:53) Unknown cefpodoxime Allergy (Verified 01/04/18 15:53) Rash ciprofloxacin Allergy (Verified 01/04/18 15:53) Hives diclofenac Allergy (Verified 01/04/18 15:53) Rash gabapentin [From Neurontin] Allergy (Verified 01/04/18 15:53) Unknown latex Allergy (Verified 01/04/18 15:53) Rash levofloxacin [From Levaquin] Allergy (Verified 01/04/18 15:53) redness,rash nitrofurantoin Allergy (Verified 01/04/18 15:53) Unknown Penicillins Allergy (Verified 01/04/18 15:53) Anaphylaxis prednisone Allergy (Verified 01/04/18 15:53) Unknown pregabalin Allergy (Verified 01/04/18 15:53) Unknown cephalexin [From Keflex] Adverse Reaction (Verified 01/04/18 17:55) Upset Stomach norfloxacin [From Noroxin] Adverse Reaction (Verified 01/04/18 15:53) Upset Stomach phenytoin [From Dilantin] Adverse Reaction (Verified 01/04/18 15:53) loss of balance alvogen Allergy (Uncoded 01/04/18 15:53) Rash Home Medications: Ambulatory Orders Medication Instructions Recorded Baclofen [Lioresal] 10 mg PO QHS 04/15/16 Cholecalciferol (Vitamin D3) 5,000 unit PO DAILY 04/15/16 [Vitamin D3] Lisinopril [Zestril] 5 mg PO QODAY 04/15/16 Lorazepam [Ativan] 1 mg PO QHS 04/15/16 Lysine [l-Lysine] 1,000 mg PO DAILY 04/15/16 Mirabegron [Myrbetriq] 50 mg PO DAILY 04/15/16 Solifenacin Succinate [Vesicare] 10 mg PO QHS 04/15/16 Topiramate [Topamax] 200 mg PO QHS 04/15/16 Coconut Oil 2,000 mg PO DAILY 12/28/17 Cranberry Conc/Ascorbic Acid 1 each PO DAILY 12/28/17 [Cranberry 12,600 mg Softgel] Herbal Drugs [Colon Herbal 2 each PO QHS 12/28/17 Cleanser] Tizanidine HCl [Zanaflex] 2 mg PO QHS 12/28/17 Hydrocodone Bitart/Apap 5-325 1 tab PO Q4H PRN PRN 5 Days #10 tab 01/01/18 [[place] 5MG-325MG] Phenazopyridine HCl [Pyridium] 200 mg PO TID #20 tab 01/01/18 Ascorbic Acid [C-1000] 1,000 mg PO QHS 01/04/18 Ondansetron [Zofran Odt] 4 mg PO TID PRN 01/04/18 Surgical History: noncontributory, - - x2, bladder sling surgery with mesh, hysterectomy, cholecystectomy, tonsillectomy, hammertoe surgery bilaterally, recent bladder biopsy. 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 Paternal History Items: Cancer - Bladder cancer, COPD, Diabetes, Heart Disease Offspring History Items: - - mental health Review of Systems Constitutional: Denies: Chills, Fever, Weight Change HEENT: Denies: Head Aches, Sinus Congestion, Sinus Drainage Cardiovascular: Denies: Chest Pain, Palpitations Respiratory: Denies: Cough, Shortness of breath at rest, Sputum production Gastrointestinal: Reports: Abdominal Pain, Nausea, Vomiting Genitourinary: Reports: Dysuria Musculoskeletal: Denies: Joint Pain, Joint Tenderness Skin: Denies: Rash, Wounds Neurological: Denies: Numbness, Tingling, Focal weakness Psychiatric: Denies: Anxiety, Depression, Homicidal Ideations, Suicidal Ideations Hematologic/ Lymphatic: Denies: Easy Bruising, Easy Bleeding VTE Information - Inpt Only VTE Present on Admission: No VTE Mechan Device Prophylaxis: SCD's - Physical Exam General: Alert, Oriented x3, Cooperative HEENT: Atraumatic, PERRLA, EOMI, Normocephalic Neck: Supple, No JVD, Negative Carotid Bruits Lungs: Clear to auscultation, Normal air movement Cardiovascular: Regular rate, No murmurs Abdomen: Bowel Sounds Present, Soft, Non Tender Extremities: No edema, Capillary Refill Less than 3 Seconds Skin: No rashes, No breakdown Musculoskeletal: No Tenderness to Palpation of Joints or Extremities Neurological: Cranial nerves II-XII grossly intact Psych/Mental Status: Normal Affect, Appropriate Vital Signs Temp Pulse Resp BP Pulse Ox 98.8 F 88 18 99/51 L 97 01/05/18 01:42 01/05/18 01:42 01/05/18 01:42 01/05/18 01:42 01/05/18 01:42 Oxygen Delivery Method Room Air Weight: 75.75 kg Body Mass Index (BMI) 26.2 Intake and Output for Last 24 Hours 01/03/18 01/04/18 01/05/18 23:59 23:59 23:59 Intake Total 1645 / 1645 Output Total 176 / 176 480 / 480 Balance -176 / -176 1165 / 1165 Laboratory Tests Past 24 Hrs 01/04/18 01/04/18 01/04/18 16:55 17:03 17:03 WBC 4.8 RBC 3.76 L Hgb 11.2 L Hct 34.5 L MCV 91.8 MCH 29.8 MCHC 32.5 RDW 12.6 RDW Differential 41.9 Plt Count 155 MPV 9.5 Immature Gran % (Auto) 0.000 Neut % (Auto) 71.4 H Lymph % (Auto) 20.6 [place] % (Auto) 7.8 Eos % (Auto) 0.0 Baso % (Auto) 0.2 Absolute Neuts (auto) 3.4 Absolute Lymphs (auto) 0.98 Total Counted Not Reportable Sodium 140 Potassium 3.9 Chloride 106 Carbon Dioxide 21.0 Anion Gap 13 BUN 17 Creatinine 1.22 H Estim Creat Clear Calc 57.22 Est GFR (MDRD) Af Amer 62 Est GFR (MDRD) Non-Af 51 L BUN/Creatinine Ratio 13.9 Glucose 70 L Hemoglobin A1c Calcium 8.7 Urine Color Yellow Urine Clarity Cloudy Urine pH 5.0 Ur Specific [place] 1.020 Urine Protein 100 H Urine Glucose (UA) Normal Urine Ketones 150 H Urine Occult Blood 250 H Urine Nitrite Positive H Urine Bilirubin 1 H Urine Urobilinogen 1 H Ur Leukocyte Esterase 500 H Urine RBC 25-50 SEEN Urine WBC >100 SEEN Ur Squamous Epith Cells 0-5 SEEN Urine Bacteria 4+ Urine Mucus 0 SEEN 01/04/18 01/05/18 01/05/18 17:03 05:25 05:25 WBC 4.0 L RBC 3.43 L Hgb 10.2 L Hct 31.8 L MCV 92.7 MCH 29.7 MCHC 32.1 RDW 12.9 RDW Differential 43.6 Plt Count 154 MPV 9.7 Immature Gran % (Auto) 0.000 Neut % (Auto) 71.1 H Lymph % (Auto) 20.8 [place] % (Auto) 7.8 Eos % (Auto) 0.0 Baso % (Auto) 0.3 Absolute Neuts (auto) 2.9 Absolute Lymphs (auto) 0.83 Total Counted Not Reportable Sodium 144 Potassium 4.2 Chloride 112 H Carbon Dioxide 19.0 L Anion Gap 13 BUN 21 H Creatinine 1.20 H Estim Creat Clear Calc 58.18 Est GFR (MDRD) Af Amer 63 Est GFR (MDRD) Non-Af 52 L BUN/Creatinine Ratio 17.5 Glucose 60 L Hemoglobin A1c 5.2 Calcium 8.3 L Urine Color Urine Clarity Urine pH Ur Specific [place] Urine Protein Urine Glucose (UA) Urine Ketones Urine Occult Blood Urine Nitrite Urine Bilirubin Urine Urobilinogen Ur Leukocyte Esterase Urine RBC Urine WBC Ur Squamous Epith Cells Urine Bacteria Urine Mucus Assessment/Plan All Active Problems Pyelonephritis (Acute) UTI (urinary tract infection) (Acute) Admit to the hospital for a bladder infection, nausea vomiting, dehydration, will obtain blood work. Her white blood count was low. Urine culture is pending, she is been given meropenem as an antibiotic. Unfortunately she also has quite a long list of drug intolerances not really sure if these are all true allergic reactions often she will call complaining that not feeling well etc. when she takes an antibiotic so she is listed quite a long list of antibiotics that she cannot take but it is hard to tell which ones are true antibiotics true reactions may need to have her see the client retention specialist to see which antibiotic she could use in the future as this is limiting her ability to treat infection severely. I am also to have infectious disease see her as a consultation to help with antibiotic selection and treatment of possible UTI.
[2018-01-05 07:18] VITALS: BP 99/56; PULSE 87; RESP 16; TEMP 38.2; O2SAT 94
[2018-01-05 07:23] VITALS: PULSE 80
[2018-01-05] MEDS: Dext 5%-0.45% NS 1,000 ML 75 ML IV ×2 (08:10→21:15)
[2018-01-05 08:23] VITALS: O2SAT 94
--- NOTE | 2018-01-05 08:52 | PCM.PN.HOSP ---
Subjective: Patient is a 42-year-old lady admitted with suprapubic pain. She had apparently undergone bladder biopsy by Dr. Eller on 01/11/2018. An assessment of acute cystitis was made admitted to regular nursing floor for further management Objective: GENERAL: cooperative; appears ill looking HEENT: Atraumatic; moist oral mucosa EYES; Anicteric, Normal Conjunctiva NECK; supple, normal thyroid, no distended JVD. RESPIRATORY: Diminished to auscultation bilaterally, CARDIOVASCULAR: Regular S1 S2, no audible murmurs GI: soft, non-tender, normoactive bowel sounds, : suprapubic tenderness EXTREMITIES: No edema, no clubbing, no cyanosis. MUSCULOSKELETAL: No Joint Tenderness; no muscle waisting NEURO: Awake; no lateralizing signs. SKIN: No Rash PSYCH; Normal affect Vitals/I&O's: Vital Signs Temp Pulse Resp BP Pulse Ox 100.7 F H 80 16 99/56 L 94 01/05/18 07:18 01/05/18 07:23 01/05/18 07:18 01/05/18 07:18 01/05/18 08:23 Oxygen Delivery Method Room Air Weight: 75.75 kg Body Mass Index (BMI) 26.2 Intake and Output for Last 24 Hours 01/03/18 01/04/18 01/05/18 23:59 23:59 23:59 Intake Total 1645 / 1645 Output Total 176 / 176 480 / 480 Balance -176 / -176 1165 / 1165 Laboratory Results 01/04/18 16:55: Urine Color Yellow, Urine Clarity Cloudy, Urine pH 5.0, Ur Specific [place] 1.020, Urine Protein 100 H, Urine Glucose (UA) Normal, Urine Ketones 150 H, Urine Occult Blood 250 H, Urine Nitrite Positive H, Urine Bilirubin 1 H, Urine Urobilinogen 1 H, Ur Leukocyte Esterase 500 H, Urine RBC 25-50 SEEN, Urine WBC >100 SEEN, Ur Squamous Epith Cells 0-5 SEEN, Urine Bacteria 4+, Urine Mucus 0 SEEN 01/04/18 17:03: WBC 4.8, RBC 3.76 L, Hgb 11.2 L, Hct 34.5 L, MCV 91.8, MCH 29.8, MCHC 32.5, RDW 12.6, RDW Differential 41.9, Plt Count 155, MPV 9.5, Immature Gran % (Auto) 0.000, Neut % (Auto) 71.4 H, Lymph % (Auto) 20.6, [place] % (Auto) 7.8, Eos % (Auto) 0.0, Baso % (Auto) 0.2, Absolute Neuts (auto) 3.4, Absolute Lymphs (auto) 0.98, Total Counted Not Reportable 01/04/18 17:03: Sodium 140, Potassium 3.9, Chloride 106, Carbon Dioxide 21.0, Anion Gap 13, BUN 17, Creatinine 1.22 H, Estim Creat Clear Calc 57.22, Est GFR (MDRD) Af Amer 62, Est GFR (MDRD) Non-Af 51 L, BUN/Creatinine Ratio 13.9, Glucose 70 L, Calcium 8.7 01/04/18 17:03: Hemoglobin A1c 5.2 01/05/18 05:25: WBC 4.0 L, RBC 3.43 L, Hgb 10.2 L, Hct 31.8 L, MCV 92.7, MCH 29.7, MCHC 32.1, RDW 12.9, RDW Differential 43.6, Plt Count 154, MPV 9.7, Immature Gran % (Auto) 0.000, Neut % (Auto) 71.1 H, Lymph % (Auto) 20.8, [place] % (Auto) 7.8, Eos % (Auto) 0.0, Baso % (Auto) 0.3, Absolute Neuts (auto) 2.9, Absolute Lymphs (auto) 0.83, Total Counted Not Reportable 01/05/18 05:25: Sodium 144, Potassium 4.2, Chloride 112 H, Carbon Dioxide 19.0 L, Anion Gap 13, BUN 21 H, Creatinine 1.20 H, Estim Creat Clear Calc 58.18, Est GFR (MDRD) Af Amer 63, Est GFR (MDRD) Non-Af 52 L, BUN/Creatinine Ratio 17.5, Glucose 60 L, Calcium 8.3 L Current Medications Acetaminophen (Tylenol) 650 mg PO Q6H PRN PRN PRN Reason: Mild Pain (scale 0-3)/T>100.7 Hydrocodone Bitart/Acetaminophen ([place] 5mg-325mg) 1 tablet PO Q4H PRN PRN PRN Reason: PAIN Al Hydroxide/Mg Hydroxide ([place] Ii) 30 ml PO Q6H PRN PRN PRN Reason: Gastric burning Baclofen (Lioresal) 10 mg PO QHS [facility] Last Admin: 01/04/18 21:58 Dose: Not Given Heparin Sodium (Beef Lung) () 50 units IV UD PRN PRN Reason: HEPARIN FLUSH Heparin Sodium (Porcine) (Heparin Na) 5,000 unit SC Q12 [facility] Last Admin: 01/04/18 21:59 Dose: Not Given Meropenem 1 gm/ Sodium (Chloride) 120 mls @ 33 mls/hr IV Q8 [facility] Last Admin: 01/05/18 05:49 Dose: 33 mls/hr Sodium Chloride () 250 mls @ 15 mls/hr IV .[id number] PRN PRN Reason: SALINE FLUSH Dextrose/Sodium Chloride () 1,000 mls @ 75 mls/hr IV .[id number] [facility] Last Admin: 01/05/18 08:10 Dose: 75 mls/hr Lisinopril (Zestril) 5 mg PO QODAY [facility] Lorazepam (Ativan) 1 mg PO QHS [facility] Last Admin: 01/04/18 21:59 Dose: Not Given Magnesium Hydroxide (Milk Of Magnesia) 30 ml PO DAILY PRN PRN PRN Reason: Constipation Morphine Sulfate () 2 - 4 mg IV Q3H PRN PRN PRN Reason: Severe Pain (pain scale 6-10) Last Admin: 01/05/18 05:49 Dose: 4 mg Morphine Sulfate () 1 - 2 mg IV Q4H PRN PRN PRN Reason: Moderate Pain (pain scale 4-5) Nutritional Formula (Lactose Free) (Ensure Clear) 120 ml PO 4X/DAY [facility] Last Admin: 01/04/18 21:58 Dose: Not Given Ondansetron HCl (Zofran) 4 mg IV Q8H PRN PRN PRN Reason: NAUSEA Last Admin: 01/05/18 05:49 Dose: 4 mg Phenazopyridine HCl (Azo Standard) 190 mg PO TID [facility] Last Admin: 01/05/18 06:30 Dose: 190 mg Promethazine HCl (Phenergan) 12.5 mg IV Q6H PRN PRN PRN Reason: NAUSEA/VOMITING Sodium Chloride () 10 ml IV UD PRN PRN Reason: VAD FLUSH Tizanidine HCl (Zanaflex) 2 mg PO QHS [facility] Last Admin: 01/04/18 21:58 Dose: Not Given Tolterodine Tartrate (Detrol La) 4 mg PO QHS [facility] Last Admin: 01/04/18 21:58 Dose: Not Given Topiramate (Topamax) 200 mg PO QHS [facility] Last Admin: 01/04/18 21:58 Dose: Not Given Medical Necessity - Tobacco Use Smoking Status: Never smoker Tobacco Use: Non-smoker Assessment/Plan All Active Problems Pyelonephritis (Acute) UTI (urinary tract infection) (Acute) Patient is a 42-year-old lady admitted with suprapubic pain. She had apparently undergone bladder biopsy by Dr. Eller on 01/11/2018. An assessment of acute cystitis was made admitted to regular nursing floor for further management 1. Acute implicated UTI (cystitis): Patient has been admitted to regular nursing floor started on Rocephin cultures sent 2. Recent bladder biopsy by Dr. Eller with urology consult 3. Multiple sclerosis and is followed by a neurologist at [facility] Dr. De La Cruz 4. Chronic migraine headaches: Is on Topamax 5. DVT prophylaxis SC heparin Code Visit Inpatient E&M: 66736 Subs Hosp L3
--- NOTE | 2018-01-05 08:56 | PN_ITS ---
Subjective: Patient is a 42-year-old lady admitted with suprapubic pain. She had apparently undergone bladder biopsy by Dr. Eller on 01/11/2018. An assessment of acute cystitis was made admitted to regular nursing floor for further management Objective: GENERAL: cooperative; appears ill looking HEENT: Atraumatic; moist oral mucosa EYES; Anicteric, Normal Conjunctiva NECK; supple, normal thyroid, no distended JVD. RESPIRATORY: Diminished to auscultation bilaterally, CARDIOVASCULAR: Regular S1 S2, no audible murmurs GI: soft, non-tender, normoactive bowel sounds, : suprapubic tenderness EXTREMITIES: No edema, no clubbing, no cyanosis. MUSCULOSKELETAL: No Joint Tenderness; no muscle waisting NEURO: Awake; no lateralizing signs. SKIN: No Rash PSYCH; Normal affect Vitals/I&O's: Vital Signs Temp Pulse Resp BP Pulse Ox 100.7 F H 80 16 99/56 L 94 01/05/18 07:18 01/05/18 07:23 01/05/18 07:18 01/05/18 07:18 01/05/18 08:23 Oxygen Delivery Method Room Air Weight: 75.75 kg Body Mass Index (BMI) 26.2 Intake and Output for Last 24 Hours 01/03/18 01/04/18 01/05/18 23:59 23:59 23:59 Intake Total 1645 / 1645 Output Total 176 / 176 480 / 480 Balance -176 / -176 1165 / 1165 Laboratory Results 01/04/18 16:55: Urine Color Yellow, Urine Clarity Cloudy, Urine pH 5.0, Ur Specific [place] 1.020, Urine Protein 100 H, Urine Glucose (UA) Normal, Urine Ketones 150 H, Urine Occult Blood 250 H, Urine Nitrite Positive H, Urine Bilirubin 1 H, Urine Urobilinogen 1 H, Ur Leukocyte Esterase 500 H, Urine RBC 25-50 SEEN, Urine WBC >100 SEEN, Ur Squamous Epith Cells 0-5 SEEN, Urine Bacteria 4+, Urine Mucus 0 SEEN 01/04/18 17:03: WBC 4.8, RBC 3.76 L, Hgb 11.2 L, Hct 34.5 L, MCV 91.8, MCH 29.8, MCHC 32.5, RDW 12.6, RDW Differential 41.9, Plt Count 155, MPV 9.5, Immature Gran % (Auto) 0.000, Neut % (Auto) 71.4 H, Lymph % (Auto) 20.6, Butts % (Auto) 7.8, Eos % (Auto) 0.0, Baso % (Auto) 0.2, Absolute Neuts (auto) 3.4, Absolute Lymphs (auto) 0.98, Total Counted Not Reportable 01/04/18 17:03: Sodium 140, Potassium 3.9, Chloride 106, Carbon Dioxide 21.0, Anion Gap 13, BUN 17, Creatinine 1.22 H, Estim Creat Clear Calc 57.22, Est GFR (MDRD) Af Amer 62, Est GFR (MDRD) Non-Af 51 L, BUN/Creatinine Ratio 13.9, Glucose 70 L, Calcium 8.7 01/04/18 17:03: Hemoglobin A1c 5.2 01/05/18 05:25: WBC 4.0 L, RBC 3.43 L, Hgb 10.2 L, Hct 31.8 L, MCV 92.7, MCH 29.7, MCHC 32.1, RDW 12.9, RDW Differential 43.6, Plt Count 154, MPV 9.7, Immature Gran % (Auto) 0.000, Neut % (Auto) 71.1 H, Lymph % (Auto) 20.8, Butts % (Auto) 7.8, Eos % (Auto) 0.0, Baso % (Auto) 0.3, Absolute Neuts (auto) 2.9, Absolute Lymphs (auto) 0.83, Total Counted Not Reportable 01/05/18 05:25: Sodium 144, Potassium 4.2, Chloride 112 H, Carbon Dioxide 19.0 L , Anion Gap 13, BUN 21 H, Creatinine 1.20 H, Estim Creat Clear Calc 58.18, Est GFR (MDRD) Af Amer 63, Est GFR (MDRD) Non-Af 52 L, BUN/Creatinine Ratio 17.5, Glucose 60 L, Calcium 8.3 L Current Medications Acetaminophen (Tylenol) 650 mg PO Q6H PRN PRN PRN Reason: Mild Pain (scale 0-3)/T>100.7 Hydrocodone Bitart/Acetaminophen ([place] 5mg-325mg) 1 tablet PO Q4H PRN PRN PRN Reason: PAIN Al Hydroxide/Mg Hydroxide (Mylanta Ii) 30 ml PO Q6H PRN PRN PRN Reason: Gastric burning Baclofen (Lioresal) 10 mg PO QHS [facility] Last Admin: 01/04/18 21:58 Dose: Not Given Heparin Sodium (Beef Lung) () 50 units IV UD PRN PRN Reason: HEPARIN FLUSH Heparin Sodium (Porcine) (Heparin Na) 5,000 unit SC Q12 [facility] Last Admin: 01/04/18 21:59 Dose: Not Given Meropenem 1 gm/ Sodium (Chloride) 120 mls @ 33 mls/hr IV Q8 [facility] Last Admin: 01/05/18 05:49 Dose: 33 mls/hr Sodium Chloride () 250 mls @ 15 mls/hr IV .[id number] PRN PRN Reason: SALINE FLUSH Dextrose/Sodium Chloride () 1,000 mls @ 75 mls/hr IV .[id number] [facility] Last Admin: 01/05/18 08:10 Dose: 75 mls/hr Lisinopril (Zestril) 5 mg PO QODAY [facility] Lorazepam (Ativan) 1 mg PO QHS [facility] Last Admin: 01/04/18 21:59 Dose: Not Given Magnesium Hydroxide (Milk Of Magnesia) 30 ml PO DAILY PRN PRN PRN Reason: Constipation Morphine Sulfate () 2 - 4 mg IV Q3H PRN PRN PRN Reason: Severe Pain (pain scale 6-10) Last Admin: 01/05/18 05:49 Dose: 4 mg Morphine Sulfate () 1 - 2 mg IV Q4H PRN PRN PRN Reason: Moderate Pain (pain scale 4-5) Nutritional Formula (Lactose Free) (Ensure Clear) 120 ml PO 4X/DAY [facility] Last Admin: 01/04/18 21:58 Dose: Not Given Ondansetron HCl (Zofran) 4 mg IV Q8H PRN PRN PRN Reason: NAUSEA Last Admin: 01/05/18 05:49 Dose: 4 mg Phenazopyridine HCl (Azo Standard) 190 mg PO TID [facility] Last Admin: 01/05/18 06:30 Dose: 190 mg Promethazine HCl (Phenergan) 12.5 mg IV Q6H PRN PRN PRN Reason: NAUSEA/VOMITING Sodium Chloride () 10 ml IV UD PRN PRN Reason: VAD FLUSH Tizanidine HCl (Zanaflex) 2 mg PO QHS [facility] Last Admin: 01/04/18 21:58 Dose: Not Given Tolterodine Tartrate (Detrol La) 4 mg PO QHS [facility] Last Admin: 01/04/18 21:58 Dose: Not Given Topiramate (Topamax) 200 mg PO QHS [facility] Last Admin: 01/04/18 21:58 Dose: Not Given Medical Necessity - Tobacco Use Smoking Status: Never smoker Tobacco Use: Non-smoker Assessment/Plan All Active Problems Pyelonephritis (Acute) UTI (urinary tract infection) (Acute) Patient is a 42-year-old lady admitted with suprapubic pain. She had apparently undergone bladder biopsy by Dr. Eller on 01/11/2018. An assessment of acute cystitis was made admitted to regular nursing floor for further management 1. Acute implicated UTI (cystitis): Patient has been admitted to regular nursing floor started on Rocephin cultures sent 2. Recent bladder biopsy by Dr. Eller with urology consult 3. Multiple sclerosis and is followed by a neurologist at [facility] Dr. De La Cruz 4. Chronic migraine headaches: Is on Topamax 5. DVT prophylaxis SC heparin Code Visit Inpatient E&M: 22445 Subs Hosp L3
[2018-01-05] MEDS: Heparin Injection (Vial) 5,000 UNIT/ML VIAL 5000 UNIT SC ×2 (10:21→21:06)
[2018-01-05] MEDS: Mirabegron 50 MG TAB.ER.24H PO (10:21)
--- NOTE | 2018-01-05 10:30 | CASEMGMT ---
RN CM Face to Face with patient for initial transition planning/care coordination assessment. RN CM introduced self and role at [facility]. Patient lying in bed, alert and oriented. Patient willing to participate in assessment and is able to answer all questions appropriately. Care providers, pharmacy, and demographics verified. Patient wishes to discharge home, denies need for home health at this time. Patient states she has no further needs or concerns at this time. CM to follow for discharge planning needs that may arise. PCP: [facility]: sees MS specialist and Migraine doctor at [facility] Preferred Pharmacy: [facility] Insurance: JUANA Decker Prescription Benefit: [place] Living Will/HPOA: No, declined information LNOK: Living Arrangements: Patient lives with in 2 story home with bed and bath on 1st floor. 2 steps to enter home. Transportation: DME/HHC: Patient has raised toilet seat, cane, and walker. Declined additional DME and HHC. Disposition Plan: Patient to discharge home with family support and follow-up plans in place. Ellen AGUILAR, RN, CM
--- NOTE | 2018-01-05 10:40 | CT_ITS ---
STUDY: CT ABDOMEN AND PELVIS WITH CONTRAST REASON FOR EXAM: Female, 42 years old. History of recent bladder biopsy. RADIATION DOSAGE (If Supplied By Facility): CTDIvol = ( 16.89 ) mGy, DLP = ( 1882.49 ) mGycm TECHNIQUE: Transaxial images were obtained from the dome of the diaphragm to the symphysis pubis without oral contrast. 100 ml of Isovue 300 contrast was administered. Sagittal and coronal images were reconstructed. Individualized dose optimization techniques were used for this CT. COMPARISON: Comparison is made with prior examination dated December 24, 2017. FINDINGS: Minimal increased markings at the lung bases suggestive of bibasilar atelectasis slightly more prominent on the left side. The visualized portions of the heart are within normal limits. Mild degree of intrahepatic biliary ductal dilatation. The patient is status post cholecystectomy. Normal spleen. Normal pancreas. Normal bilateral adrenal glands. Normal right kidney. Moderate atrophy of the left kidney. Stable 4.5 mm rounded calcification in the anterior lateral aspect of the left kidney. This is unchanged. Normal visualized stomach. Normal small intestine. There is diverticulosis, with thickening of the colon wall, and pericolonic inflammation changes consistent with acute diverticulitis. Increased markings are seen in the surrounding peritoneal fat. The appendix is visualized and appears normal. Normal abdominal aorta. Normal inferior vena cava. Normal retroperitoneum. An air-fluid level is seen within the urinary bladder. If there has been recent bladder instrumentation is a normal finding otherwise a colovesical fistula should be ruled out. There is evidence of inflammatory changes seen along the lateral aspect of the urinary bladder as well as along its left lateral base. An inflammatory process should be ruled out. There is absence of the uterus consistent with a prior hysterectomy. Normal abdominal wall. Normal osseous structures. CT/Abdomen/Pelvis WITH Contrast IMPRESSION: Inflammatory changes are seen in the region of the sigmoid colon extending to the left lateral wall of the urinary bladder with findings suggestive of inflammatory change. An air-fluid level is seen within the urinary bladder. A colovesical fistula should be ruled out. Electronically Signed: Tejas Carlson MD at 16:02 EST Tel [phone], Service support ,
--- NOTE | 2018-01-05 10:41 | PCM.HP.ID ---
Problem List (1) UTI (urinary tract infection) Status: Acute Qualifiers: Urinary tract infection type: acute pyelonephritis Qualified Code(s): N10 - Acute pyelonephritis Reason for Consult: uti Consulted by: Dr. Eller History of Present Illness: The patient is a 42 year old F with MS, recurrent uti, and CKD who presented with several days of severe stabbing/aching suprapubic pain associated with n/v. She has been on multiple recent courses of abx including bactrim. Ucx with ecoli-like recently. Did not have improvement with abx, so had CT done 12/24 and then bladder biopsy done 01/[address] Eller. Since procedure developed severe pain and not feeling well. No fever or chills. Did have burning with urination, no blood present. Came to ED, started on meropenem, not feeling any better. Full ROS performed and neg except as noted above. - Medical History Past Medical History (Chronic Problems): Chronic Problems Overweight (BMI 25.0-29.9) (Chronic) Migraines (Chronic) Type 2 diabetes mellitus (Chronic) Multiple sclerosis (Chronic) Allergies/Adverse Reactions: Allergies adhesive tape Allergy (Verified 01/04/18 15:53) Rash aspirin [ASA] Allergy (Verified 01/04/18 15:53) Unknown cefpodoxime Allergy (Verified 01/04/18 15:53) Rash ciprofloxacin Allergy (Verified 01/04/18 15:53) Hives diclofenac Allergy (Verified 01/04/18 15:53) Rash gabapentin [From Neurontin] Allergy (Verified 01/04/18 15:53) Unknown latex Allergy (Verified 01/04/18 15:53) Rash levofloxacin [From Levaquin] Allergy (Verified 01/04/18 15:53) redness,rash nitrofurantoin Allergy (Verified 01/04/18 15:53) Unknown Penicillins Allergy (Verified 01/04/18 15:53) Anaphylaxis prednisone Allergy (Verified 01/04/18 15:53) Unknown pregabalin Allergy (Verified 01/04/18 15:53) Unknown cephalexin [From Keflex] Adverse Reaction (Verified 01/04/18 17:55) Upset Stomach norfloxacin [From Noroxin] Adverse Reaction (Verified 01/04/18 15:53) Upset Stomach phenytoin [From Dilantin] Adverse Reaction (Verified 01/04/18 15:53) loss of balance alvogen Allergy (Uncoded 01/04/18 15:53) Rash Home Medications: Ambulatory Orders Medication Instructions Recorded Baclofen [Lioresal] 10 mg PO QHS 04/15/16 Cholecalciferol (Vitamin D3) 5,000 unit PO DAILY 04/15/16 [Vitamin D3] Lisinopril [Zestril] 5 mg PO QODAY 04/15/16 Lorazepam [Ativan] 1 mg PO QHS 04/15/16 Lysine [l-Lysine] 1,000 mg PO DAILY 04/15/16 Mirabegron [Myrbetriq] 50 mg PO DAILY 04/15/16 Solifenacin Succinate [Vesicare] 10 mg PO QHS 04/15/16 Topiramate [Topamax] 200 mg PO QHS 04/15/16 Coconut Oil 2,000 mg PO DAILY 12/28/17 Cranberry Conc/Ascorbic Acid 1 each PO DAILY 12/28/17 [Cranberry 12,600 mg Softgel] Herbal Drugs [Colon Herbal 2 each PO QHS 12/28/17 Cleanser] Tizanidine HCl [Zanaflex] 2 mg PO QHS 12/28/17 Hydrocodone Bitart/Apap 5-325 1 tab PO Q4H PRN PRN 5 Days #10 tab 01/01/18 [[place] 5MG-325MG] Phenazopyridine HCl [Pyridium] 200 mg PO TID #20 tab 01/01/18 Ascorbic Acid [C-1000] 1,000 mg PO QHS 01/04/18 Ondansetron [Zofran Odt] 4 mg PO TID PRN 01/04/18 - Social History SMOKING STATUS:: Never smoker Vital Signs Temp Pulse Resp BP Pulse Ox 100.7 F H 80 16 99/56 L 94 01/05/18 07:18 01/05/18 07:23 01/05/18 07:18 01/05/18 07:18 01/05/18 08:23 Oxygen Delivery Method Room Air Weight: 75.75 kg Body Mass Index (BMI) 26.2 Laboratory Tests Past 24 Hrs 01/04/18 01/04/18 01/04/18 16:55 17:03 17:03 WBC 4.8 RBC 3.76 L Hgb 11.2 L Hct 34.5 L MCV 91.8 MCH 29.8 MCHC 32.5 RDW 12.6 RDW Differential 41.9 Plt Count 155 MPV 9.5 Immature Gran % (Auto) 0.000 Neut % (Auto) 71.4 H Lymph % (Auto) 20.6 [place] % (Auto) 7.8 Eos % (Auto) 0.0 Baso % (Auto) 0.2 Absolute Neuts (auto) 3.4 Absolute Lymphs (auto) 0.98 Total Counted Not Reportable Sodium 140 Potassium 3.9 Chloride 106 Carbon Dioxide 21.0 Anion Gap 13 BUN 17 Creatinine 1.22 H Estim Creat Clear Calc 57.22 Est GFR (MDRD) Af Amer 62 Est GFR (MDRD) Non-Af 51 L BUN/Creatinine Ratio 13.9 Glucose 70 L Hemoglobin A1c Calcium 8.7 Urine Color Yellow Urine Clarity Cloudy Urine pH 5.0 Ur Specific [place] 1.020 Urine Protein 100 H Urine Glucose (UA) Normal Urine Ketones 150 H Urine Occult Blood 250 H Urine Nitrite Positive H Urine Bilirubin 1 H Urine Urobilinogen 1 H Ur Leukocyte Esterase 500 H Urine RBC 25-50 SEEN Urine WBC >100 SEEN Ur Squamous Epith Cells 0-5 SEEN Urine Bacteria 4+ Urine Mucus 0 SEEN 01/04/18 01/05/18 01/05/18 17:03 05:25 05:25 WBC 4.0 L RBC 3.43 L Hgb 10.2 L Hct 31.8 L MCV 92.7 MCH 29.7 MCHC 32.1 RDW 12.9 RDW Differential 43.6 Plt Count 154 MPV 9.7 Immature Gran % (Auto) 0.000 Neut % (Auto) 71.1 H Lymph % (Auto) 20.8 [place] % (Auto) 7.8 Eos % (Auto) 0.0 Baso % (Auto) 0.3 Absolute Neuts (auto) 2.9 Absolute Lymphs (auto) 0.83 Total Counted Not Reportable Sodium 144 Potassium 4.2 Chloride 112 H Carbon Dioxide 19.0 L Anion Gap 13 BUN 21 H Creatinine 1.20 H Estim Creat Clear Calc 58.18 Est GFR (MDRD) Af Amer 63 Est GFR (MDRD) Non-Af 52 L BUN/Creatinine Ratio 17.5 Glucose 60 L Hemoglobin A1c 5.2 Calcium 8.3 L Urine Color Urine Clarity Urine pH Ur Specific [place] Urine Protein Urine Glucose (UA) Urine Ketones Urine Occult Blood Urine Nitrite Urine Bilirubin Urine Urobilinogen Ur Leukocyte Esterase Urine RBC Urine WBC Ur Squamous Epith Cells Urine Bacteria Urine Mucus - Other Studies Radiology: [] reviewed Other Studies: [] Route of nutrition/ use of supplements: [] Nutritional Intake: [] IV Site: [] Arceo Catheter: [] - Physical Exam General: Alert, Oriented x3, Cooperative, - - uncomfortable HEENT: Atraumatic, PERRLA, EOMI Neck: Supple, No Nodes Lungs: Clear to auscultation, Normal air movement Cardiovascular: Regular rate, Regular Rhythm Abdomen: Soft, Tender - very tender over bladder Extremities: No edema Skin: No rashes IV Site: Central Line, without redness - R chest port Musculoskeletal: No Tenderness to Palpation of Joints or Extremities Neurological: Cranial nerves II-XII grossly intact - Assessment/Plan Antibiotics: [] Assessment/Plan: [] Recurrent uti in pt with MS, now with significant abd pain and n/v s/p bladder bx by Dr. Eller 01/01/18 - UA with heavy pyuria. Recent ucxs with ecoli-like. No fistula seen on CT 12/24. Multiple drug allergies. Ok to continue meropenem for now, ucx is pending. Given lack of improvement overnight and amount of pain with recent procedure, will check repeat CT of abd. Likely would not be able to tolerate an U/S. Will follow, thank you.
[2018-01-05] MEDS: proMETHazine 25 MG/ML Syringe 12.5 MG IV (11:57)
[2018-01-05] MEDS: 0.9% NaCl VAD Flush 10 ML IV ×6 (11:57→18:06)
[2018-01-05] MEDS: Morphine 2 MG/ML Syringe IV ×2 (14:09→18:06)
[2018-01-05 14:16] VITALS: BP 101/63; PULSE 77; RESP 12; TEMP 37.5; O2SAT 99
--- NOTE | 2018-01-05 15:55 | CHAPLAIN ---
attempts to visit made 3x today but pt is either sleeping and has nursing care involved in room
[2018-01-05 20:00] VITALS: BP 98/64; PULSE 67; RESP 18; TEMP 37.4; O2SAT 96
[2018-01-05] MEDS: HYDROcodone Bitartrate/Apap 5/325 Tablet PO (21:04)
[2018-01-05] MEDS: LORazepam 1 MG Tablet PO (21:04)
[2018-01-05] MEDS: Baclofen 10 MG Tablet PO (21:05)
[2018-01-05] MEDS: Tolterodine Tartrate 4 MG CAP.SA PO (21:05)
[2018-01-05] MEDS: Topiramate 100 MG Tablet 200 MG PO (21:05)
[2018-01-05] MEDS: tiZANidine HCl 2 MG Tablet PO (21:05)
[2018-01-06] VITALS (7 sets, daily range): BP systolic 89–102; BP diastolic 51–63; PULSE 64–77; RESP 16–18; TEMP 36.9–37.4; O2SAT 91–96
[2018-01-06] MEDS: Phenazopyridine 95 MG Tablet 190 MG PO ×2 (05:47→14:23)
[2018-01-06] MEDS: Morphine 2 MG/ML Syringe IV ×2 (05:50→20:50)
[2018-01-06] MEDS: HYDROcodone Bitartrate/Apap 5/325 Tablet PO ×2 (08:19→15:34)
[2018-01-06] MEDS: Magnesium Hydroxide 30 ML UDC PO (08:29)
--- NOTE | 2018-01-06 09:04 | PCM.PN.HOSP ---
Subjective: Seen still complains of abdominal pain. Also complains of being constipated for almost a week patient was given magnesium citrate.Patient's urine cultures positive for E. coli. Sensitivities reviewed. Subsequent antibiotic changes deferred to infectious disease Objective: GENERAL: cooperative; appears ill looking HEENT: Atraumatic; moist oral mucosa EYES; Anicteric, Normal Conjunctiva NECK; supple, normal thyroid, no distended JVD. RESPIRATORY: Diminished to auscultation bilaterally, CARDIOVASCULAR: Regular S1 S2, no audible murmurs GI: soft, non-tender, normoactive bowel sounds, : suprapubic tenderness EXTREMITIES: No edema, no clubbing, no cyanosis. MUSCULOSKELETAL: No Joint Tenderness; no muscle waisting NEURO: Awake; no lateralizing signs. SKIN: No Rash PSYCH; Normal affect Vitals/I&O's: Vital Signs Temp Pulse Resp BP Pulse Ox 99.4 F H 70 16 101/63 94 01/06/18 08:11 01/06/18 08:21 01/06/18 08:11 01/06/18 08:11 01/06/18 08:11 Oxygen Delivery Method Room Air Weight: 75.75 kg Body Mass Index (BMI) 26.2 Intake and Output for Last 24 Hours 01/04/18 01/05/18 01/06/18 23:59 23:59 23:59 Intake Total 2361 / 2361 1331 / 1331 Output Total 176 / 176 1160 / 1160 450 / 450 Balance -176 / -176 1201 / 1201 881 / 881 Microbiology Past 72 Hours 01/04/18 16:55 Urine, Clean Catch Urine Culture - Final Presumptive E. coli Current Medications Acetaminophen (Tylenol) 650 mg PO Q6H PRN PRN PRN Reason: Mild Pain (scale 0-3)/T>100.7 Hydrocodone Bitart/Acetaminophen ([place] 5mg-325mg) 1 tablet PO Q4H PRN PRN PRN Reason: PAIN Last Admin: 01/06/18 08:19 Dose: 1 tablet Al Hydroxide/Mg Hydroxide (Mylanta Ii) 30 ml PO Q6H PRN PRN PRN Reason: Gastric burning Baclofen (Lioresal) 10 mg PO QHS [facility] Last Admin: 01/05/18 21:05 Dose: 10 mg Heparin Sodium (Beef Lung) () 50 units IV UD PRN PRN Reason: HEPARIN FLUSH Heparin Sodium (Porcine) (Heparin Na) 5,000 unit SC Q12 [facility] Last Admin: 01/05/18 21:06 Dose: 5,000 unit Meropenem 1 gm/ Sodium (Chloride) 120 mls @ 33 mls/hr IV Q8 [facility] Last Admin: 01/06/18 05:47 Dose: 33 mls/hr Sodium Chloride () 250 mls @ 15 mls/hr IV .[id number] PRN PRN Reason: SALINE FLUSH Dextrose/Sodium Chloride () 1,000 mls @ 75 mls/hr IV .[id number] [facility] Last Admin: 01/05/18 21:15 Dose: 75 mls/hr Lisinopril (Zestril) 5 mg PO QODAY [facility] Last Admin: 01/05/18 10:09 Dose: Not Given Lorazepam (Ativan) 1 mg PO QHS [facility] Last Admin: 01/05/18 21:04 Dose: 1 mg Magnesium Hydroxide (Milk Of Magnesia) 30 ml PO DAILY PRN PRN PRN Reason: Constipation Last Admin: 01/06/18 08:29 Dose: 30 ml Morphine Sulfate () 2 - 4 mg IV Q3H PRN PRN PRN Reason: Severe Pain (pain scale 6-10) Last Admin: 01/05/18 05:49 Dose: 4 mg Morphine Sulfate () 1 - 2 mg IV Q4H PRN PRN PRN Reason: Moderate Pain (pain scale 4-5) Last Admin: 01/06/18 05:50 Dose: 2 mg Nutritional Formula (Lactose Free) (Ensure Clear) 120 ml PO 4X/DAY [facility] Last Admin: 01/06/18 08:14 Dose: Not Given Ondansetron HCl (Zofran) 4 mg IV Q8H PRN PRN PRN Reason: NAUSEA Last Admin: 01/05/18 15:51 Dose: 4 mg Phenazopyridine HCl (Azo Standard) 190 mg PO TID [facility] Last Admin: 01/06/18 05:47 Dose: 190 mg Promethazine HCl (Phenergan) 12.5 mg IV Q6H PRN PRN PRN Reason: NAUSEA/VOMITING Last Admin: 01/05/18 11:57 Dose: 12.5 mg Sodium Chloride () 10 ml IV UD PRN PRN Reason: VAD FLUSH Last Admin: 01/05/18 18:06 Dose: 10 ml Tizanidine HCl (Zanaflex) 2 mg PO QHS [facility] Last Admin: 01/05/18 21:05 Dose: 2 mg Tolterodine Tartrate (Detrol La) 4 mg PO QHS [facility] Last Admin: 01/05/18 21:05 Dose: 4 mg Topiramate (Topamax) 200 mg PO QHS [facility] Last Admin: 01/05/18 21:05 Dose: 200 mg Medical Necessity - Tobacco Use Smoking Status: Never smoker Tobacco Use: Non-smoker Assessment/Plan All Active Problems Pyelonephritis (Acute) UTI (urinary tract infection) (Acute) Patient is a 42-year-old lady admitted with suprapubic pain. She had apparently undergone bladder biopsy by Dr. Eller on 01/11/2018. An assessment of acute cystitis was made admitted to regular nursing floor for further management 1. Acute implicated UTI (cystitis) E. coli (non-ESBL): Patient has been admitted to regular nursing floor started on Rocephin switched to meropenem by infectious disease. Subsequent antibiotic management deferred. 2. Recent bladder biopsy by Dr. Eller with urology consult 3. Multiple sclerosis and is followed by a neurologist at [facility] Dr. De La Cruz 4. Chronic migraine headaches: Is on Topamax 5. DVT prophylaxis SC heparin Active Medications Acetaminophen (Tylenol) 650 mg PO Q6H PRN PRN PRN Reason: Mild Pain (scale 0-3)/T>100.7 Hydrocodone Bitart/Acetaminophen ([place] 5mg-325mg) 1 tablet PO Q4H PRN PRN PRN Reason: PAIN Last Admin: 01/06/18 08:19 Dose: 1 tablet Al Hydroxide/Mg Hydroxide (Mylanta Ii) 30 ml PO Q6H PRN PRN PRN Reason: Gastric burning Baclofen (Lioresal) 10 mg PO QHS [facility] Last Admin: 01/05/18 21:05 Dose: 10 mg Heparin Sodium (Beef Lung) () 50 units IV UD PRN PRN Reason: HEPARIN FLUSH Heparin Sodium (Porcine) (Heparin Na) 5,000 unit SC Q12 [facility] Last Admin: 01/05/18 21:06 Dose: 5,000 unit Meropenem 1 gm/ Sodium (Chloride) 120 mls @ 33 mls/hr IV Q8 [facility] Last Admin: 01/06/18 05:47 Dose: 33 mls/hr Sodium Chloride () 250 mls @ 15 mls/hr IV .[id number] PRN PRN Reason: SALINE FLUSH Dextrose/Sodium Chloride () 1,000 mls @ 75 mls/hr IV .[id number] [facility] Last Admin: 01/05/18 21:15 Dose: 75 mls/hr Lisinopril (Zestril) 5 mg PO QODAY [facility] Last Admin: 01/05/18 10:09 Dose: Not Given Lorazepam (Ativan) 1 mg PO QHS [facility] Last Admin: 01/05/18 21:04 Dose: 1 mg Magnesium Hydroxide (Milk Of Magnesia) 30 ml PO DAILY PRN PRN PRN Reason: Constipation Last Admin: 01/06/18 08:29 Dose: 30 ml Morphine Sulfate () 2 - 4 mg IV Q3H PRN PRN PRN Reason: Severe Pain (pain scale 6-10) Last Admin: 01/05/18 05:49 Dose: 4 mg Morphine Sulfate () 1 - 2 mg IV Q4H PRN PRN PRN Reason: Moderate Pain (pain scale 4-5) Last Admin: 01/06/18 05:50 Dose: 2 mg Nutritional Formula (Lactose Free) (Ensure Clear) 120 ml PO 4X/DAY [facility] Last Admin: 01/06/18 08:14 Dose: Not Given Ondansetron HCl (Zofran) 4 mg IV Q8H PRN PRN PRN Reason: NAUSEA Last Admin: 01/05/18 15:51 Dose: 4 mg Phenazopyridine HCl (Azo Standard) 190 mg PO TID [facility] Last Admin: 01/06/18 05:47 Dose: 190 mg Promethazine HCl (Phenergan) 12.5 mg IV Q6H PRN PRN PRN Reason: NAUSEA/VOMITING Last Admin: 01/05/18 11:57 Dose: 12.5 mg Sodium Chloride () 10 ml IV UD PRN PRN Reason: VAD FLUSH Last Admin: 01/05/18 18:06 Dose: 10 ml Tizanidine HCl (Zanaflex) 2 mg PO QHS [facility] Last Admin: 01/05/18 21:05 Dose: 2 mg Tolterodine Tartrate (Detrol La) 4 mg PO QHS [facility] Last Admin: 01/05/18 21:05 Dose: 4 mg Topiramate (Topamax) 200 mg PO QHS [facility] Last Admin: 01/05/18 21:05 Dose: 200 mg Code Visit Inpatient E&M: 19553 Subs Hosp L2
[2018-01-06] MEDS: Mirabegron 50 MG TAB.ER.24H PO (09:53)
[2018-01-06] MEDS: Heparin Injection (Vial) 5,000 UNIT/ML VIAL 5000 UNIT SC ×2 (09:53→23:35)
[2018-01-06] MEDS: Ondansetron 4 MG/2 ML Vial IV (10:15)
[2018-01-06] MEDS: 0.9% NaCl VAD Flush 10 ML IV ×2 (10:15→10:16)
[2018-01-06] MEDS: Dext 5%-0.45% NS 1,000 ML 75 ML IV ×2 (10:15→23:31)
--- NOTE | 2018-01-06 12:37 | PN.ID_ITS ---
Subjective: Nausea and abd pain mildly improved. No fever. - Physical Exam General: Alert, Cooperative, No apparent distress Lungs: Clear to auscultation, Normal air movement Cardiovascular: Regular rate, Regular Rhythm Abdomen: Soft, Tender Skin: No rashes Vital Signs Temp Pulse Resp BP Pulse Ox 99.4 F H 70 16 101/63 94 01/06/18 08:11 01/06/18 08:21 01/06/18 08:11 01/06/18 08:11 01/06/18 08:11 Oxygen Delivery Method Room Air Weight: 75.75 kg Body Mass Index (BMI) 26.2 Intake and Output for Last 24 Hours 01/04/18 01/05/18 01/06/18 23:59 23:59 23:59 Intake Total 2361 / 2361 1331 / 1331 Output Total 176 / 176 1160 / 1160 450 / 450 Balance -176 / -176 1201 / 1201 881 / 881 Microbiology Past 72 Hours 01/04/18 16:55 Urine Culture - Final Urine, Clean Catch Presumptive E. coli Medical Necessity - Tobacco Use Smoking Status: Never smoker Tobacco Use: Non-smoker Route of nutrition/ use of supplements: [] Nutritional Intake: [] IV Site: [] Arceo Catheter: [] - Assessment/Plan Antibiotics: [] Assessment/Plan: [] Recurrent uti in pt with MS, now with significant abd pain and n/v s/p bladder bx by Dr. Eller 01/01/18 - UA with heavy pyuria. Recent ucxs with ecoli-like. No fistula seen on CT 12/24. Multiple drug allergies. Ucx here with ecoli- like. CT showed possible fistula. Recommend gen surg eval. Continue meropenem. Will follow, d/w Dr. Soria.
--- NOTE | 2018-01-06 13:05 | CHAPLAIN ---
Type of Pastoral Visit _x__ Initial Visit ___ Follow-up Visit ___ On-call Visit ___ General Patient Visit ___ Spiritual Assessment ___ Family Conference ___ Bereavement ___ Rapid Response ___ Code Blue ___ Other (describe below) Pastoral Care Referral From _x__ Patient ___ Family ___ Nurse ___ Physician ___ Leather Fitter ___ Medical Staff Director ___ Other (describe below) Sacrament/Intervention _x__ Active listening ___ Anointing ___ Gnosticist ___ Bereavement ___ Communion _x__ Livia exploration ___ _x__ Life review _x__ Prayer ___ Reconciliation ___ Sacrament of Sick ___ Supportive presence ___ Wedding ___ Other (describe below) Pastoral Comments patient acknowledges some anxiety about her health; pt also speaks of her livia and family that help her in this time;
--- NOTE | 2018-01-06 15:52 | PCM.PN.BLA ---
Progress Note 42-year-old female with a history of recurrent bladder infections and also has an mass, she had a CAT scan before admission that did not show any fistula but these are difficult to diagnose she had a recent CAT scan after her procedure that shows a lot of inflammation could be a result of the procedure and inflammation but a questionable fistula but hard to rule out for sure certainly a GI consult or general surgery consult would be okay but I am not really sure if she has a fistula she does not have any clear signs of a colovesical fistula. On cystoscopy she had a lot of inflammation in the bladder but really no clear signs no fecal urea no gas from the urethra, she had gas in her bladder on CAT scan but this was after instrumentation. She does have a resistant E. coli infection and was given Bactrim after the procedure because of her multiple allergies and of course the E. coli was resistant to Bactrim she is now on meropenem. She is tolerating foods and liquids better but still somewhat nauseated still not feeling well. I did put a catheter in to decompress the bladder probably will get the catheter out by Thursday. We will continue with IV antibiotics await to see what ID want to send her home with she does have a lot of allergies or intolerance to multiple antibiotics. I do not think she is ready for discharge I probably will wait till Thursday or Thursday. This weekend I may have to transfer her care to the hospitalist since I will be out of town so she still in the hospital on Thursday I will need to transfer her primary admission to the hospitalist service since I will be leaving town.
[2018-01-06] MEDS: proMETHazine 25 MG/ML Syringe 12.5 MG IV (20:51)
--- NOTE | 2018-01-06 21:00 | NURSING ---
pt c/o nausea and dry heaving into emesis bag, no emesis noted. Refused HS PO meds tonight. C/o abd pain 9/10 and tearful. Medicated for pain and nausea.
[2018-01-07] VITALS (7 sets, daily range): BP systolic 87–113; BP diastolic 49–71; PULSE 65–80; RESP 16–18; TEMP 36.1–37.1; O2SAT 92–98
[2018-01-07] MEDS: HYDROcodone Bitartrate/Apap 5/325 Tablet PO ×2 (04:19→18:36)
[2018-01-07] MEDS: Phenazopyridine 95 MG Tablet 190 MG PO ×2 (05:44→13:48)
--- NOTE | 2018-01-07 07:37 | PCM.PN.BLA ---
Progress Note 42-year-old female last night she is still nauseous could not take much in no vomiting still having lower abdominal pain the urine is clear plan to get the catheter out tomorrow she did have E. coli was resistant to Bactrim sensitive to meropenem, she has multiple allergies we could probably try Keflex or Cipro but supposedly she is allergic to this be interesting to see what ID would want us to send her home on. I do not think she has a fistula I am not going to do a general surgery consult for now unless ID and hospitalist think is necessary they can certainly order the consult that they want. I am going to add Protonix for the nausea perhaps its reflux. Hep-Lock IV fluids. Continue meropenem. Clinically stable but her intake is poor and her nausea persists. Input from hospitalist and ID appreciated call with questions.
[2018-01-07] MEDS: 0.9% NaCl VAD Flush 10 ML IV ×3 (08:27→09:10)
[2018-01-07] MEDS: Magnesium Hydroxide 30 ML UDC PO (08:27)
[2018-01-07] MEDS: Ondansetron 4 MG/2 ML Vial IV ×2 (08:27→22:23)
--- NOTE | 2018-01-07 08:34 | PN_ITS ---
Subjective: Patient seen still remains constipated. Patient apparently declined magnesium citrate ordered the day prior came in her dad from it. Patient was offered a trial of rectal Dulcolax however she wanted to try prune juice and milk of mag for now. Objective: GENERAL: cooperative; HEENT: Atraumatic; moist oral mucosa EYES; Anicteric, Normal Conjunctiva NECK; supple, normal thyroid, no distended JVD. RESPIRATORY: Diminished to auscultation bilaterally, CARDIOVASCULAR: Regular S1 S2, no audible murmurs GI: soft, non-tender, normoactive bowel sounds, : suprapubic tenderness EXTREMITIES: No edema, no clubbing, no cyanosis. MUSCULOSKELETAL: No Joint Tenderness; no muscle waisting NEURO: Awake; no lateralizing signs. SKIN: No Rash PSYCH; Normal affect Vitals/I&O's: Vital Signs Temp Pulse Resp BP Pulse Ox 97 F L 70 16 87/58 L 93 01/07/18 07:35 01/07/18 07:35 01/07/18 07:35 01/07/18 07:35 01/07/18 07:35 Oxygen Delivery Method Room Air Weight: 75.75 kg Body Mass Index (BMI) 26.2 Intake and Output for Last 24 Hours 01/05/18 01/06/18 01/07/18 23:59 23:59 23:59 Intake Total 2361 / 2361 2848 / 2848 1196 / 1196 Output Total 1160 / 1160 1400 / 1400 600 / 600 Balance 1201 / 1201 1448 / 1448 596 / 596 Microbiology Past 72 Hours 01/04/18 16:55 Urine, Clean Catch Urine Culture - Final Presumptive E. coli Current Medications Acetaminophen (Tylenol) 650 mg PO Q6H PRN PRN PRN Reason: Mild Pain (scale 0-3)/T>100.7 Hydrocodone Bitart/Acetaminophen (Ephrata 5mg-325mg) 1 tablet PO Q4H PRN PRN PRN Reason: PAIN Last Admin: 01/07/18 04:19 Dose: 1 tablet Al Hydroxide/Mg Hydroxide (Mylanta Ii) 30 ml PO Q6H PRN PRN PRN Reason: Gastric burning Baclofen (Lioresal) 10 mg PO QHS MARCIAL Last Admin: 01/06/18 23:35 Dose: Not Given Heparin Sodium (Beef Lung) () 50 units IV UD PRN PRN Reason: HEPARIN FLUSH Heparin Sodium (Porcine) (Heparin Na) 5,000 unit SC Q12 [facility] Last Admin: 01/06/18 23:35 Dose: 5,000 unit Meropenem 1 gm/ Sodium (Chloride) 120 mls @ 33 mls/hr IV Q8 [facility] Last Admin: 01/07/18 05:44 Dose: 33 mls/hr Dextrose/Sodium Chloride () 1,000 mls @ 75 mls/hr IV .[id number] [facility] Last Admin: 01/06/18 23:31 Dose: 75 mls/hr Lisinopril (Zestril) 5 mg PO QODAY [facility] Last Admin: 01/05/18 10:09 Dose: Not Given Lorazepam (Ativan) 1 mg PO QHS [facility] Last Admin: 01/06/18 23:33 Dose: Not Given Magnesium Hydroxide (Milk Of Magnesia) 30 ml PO DAILY PRN PRN PRN Reason: Constipation Last Admin: 01/07/18 08:27 Dose: 30 ml Nutritional Formula (Lactose Free) (Ensure Clear) 120 ml PO 4X/DAY [facility] Last Admin: 01/06/18 23:34 Dose: Not Given Ondansetron HCl (Zofran) 4 mg IV Q8H PRN PRN PRN Reason: NAUSEA Last Admin: 01/07/18 08:27 Dose: 4 mg Pantoprazole Sodium (Protonix) 20 mg PO DAILY [facility] Phenazopyridine HCl (Azo Standard) 190 mg PO TID [facility] Last Admin: 01/07/18 05:44 Dose: 190 mg Promethazine HCl (Phenergan) 12.5 mg IV Q6H PRN PRN PRN Reason: NAUSEA/VOMITING Last Admin: 01/06/18 20:51 Dose: 12.5 mg Sodium Chloride () 10 ml IV UD PRN PRN Reason: VAD FLUSH Last Admin: 01/07/18 08:27 Dose: 10 ml Tizanidine HCl (Zanaflex) 2 mg PO QHS [facility] Last Admin: 01/06/18 23:35 Dose: Not Given Tolterodine Tartrate (Detrol La) 4 mg PO QHS [facility] Last Admin: 01/06/18 23:34 Dose: Not Given Topiramate (Topamax) 200 mg PO QHS [facility] Last Admin: 01/06/18 23:35 Dose: Not Given Medical Necessity - Tobacco Use Smoking Status: Never smoker Tobacco Use: Non-smoker Assessment/Plan All Active Problems Pyelonephritis (Acute) UTI (urinary tract infection) (Acute) Patient is a 42-year-old lady admitted with suprapubic pain. She had apparently undergone bladder biopsy by Dr. Eller on 01/11/2018. An assessment of acute cystitis was made admitted to regular nursing floor for further management 1. Acute implicated UTI (cystitis) E. coli (non-ESBL): Patient has been admitted to regular nursing floor started on Rocephin switched to meropenem by infectious disease. Subsequent antibiotic management deferred. 2. Recent bladder biopsy by Dr. Eller with urology consult 3. Multiple sclerosis and is followed by a neurologist at [facility] Dr. De La Cruz 4. Chronic migraine headaches: Is on Topamax 5. Abdominal discomfort. CT of the abdomen obtained on 01/05/2018 demonstrated Inflammatory changes are seen in the region of the sigmoid colon extending to the left lateral wall of the urinary bladder with findings suggestive of inflammatory change. An air-fluid level is seen within the urinarybladder. A colovesical fistula should be ruled out.. Findings were discussed with Dr. Eller patient's attending physician. He was of the view patient did not have a fistula. He was putting off surgical consultation for now. Subsequent management deferred to him. 6. DVT prophylaxis SC heparin Active Medications Acetaminophen (Tylenol) 650 mg PO Q6H PRN PRN PRN Reason: Mild Pain (scale 0-3)/T>100.7 Hydrocodone Bitart/Acetaminophen (Ephrata 5mg-325mg) 1 tablet PO Q4H PRN PRN PRN Reason: PAIN Last Admin: 01/07/18 04:19 Dose: 1 tablet Al Hydroxide/Mg Hydroxide (Mylanta Ii) 30 ml PO Q6H PRN PRN PRN Reason: Gastric burning Baclofen (Lioresal) 10 mg PO QHS [facility] Last Admin: 01/06/18 23:35 Dose: Not Given Heparin Sodium (Beef Lung) () 50 units IV UD PRN PRN Reason: HEPARIN FLUSH Heparin Sodium (Porcine) (Heparin Na) 5,000 unit SC Q12 [facility] Last Admin: 01/06/18 23:35 Dose: 5,000 unit Meropenem 1 gm/ Sodium (Chloride) 120 mls @ 33 mls/hr IV Q8 [facility] Last Admin: 01/07/18 05:44 Dose: 33 mls/hr Dextrose/Sodium Chloride () 1,000 mls @ 75 mls/hr IV .[id number] [facility] Last Admin: 01/06/18 23:31 Dose: 75 mls/hr Lisinopril (Zestril) 5 mg PO QODAY [facility] Last Admin: 01/05/18 10:09 Dose: Not Given Lorazepam (Ativan) 1 mg PO QHS [facility] Last Admin: 01/06/18 23:33 Dose: Not Given Magnesium Hydroxide (Milk Of Magnesia) 30 ml PO DAILY PRN PRN PRN Reason: Constipation Last Admin: 01/07/18 08:27 Dose: 30 ml Nutritional Formula (Lactose Free) (Ensure Clear) 120 ml PO 4X/DAY [facility] Last Admin: 01/06/18 23:34 Dose: Not Given Ondansetron HCl (Zofran) 4 mg IV Q8H PRN PRN PRN Reason: NAUSEA Last Admin: 01/07/18 08:27 Dose: 4 mg Pantoprazole Sodium (Protonix) 20 mg PO DAILY [facility] Phenazopyridine HCl (Azo Standard) 190 mg PO TID [facility] Last Admin: 01/07/18 05:44 Dose: 190 mg Promethazine HCl (Phenergan) 12.5 mg IV Q6H PRN PRN PRN Reason: NAUSEA/VOMITING Last Admin: 01/06/18 20:51 Dose: 12.5 mg Sodium Chloride () 10 ml IV UD PRN PRN Reason: VAD FLUSH Last Admin: 01/07/18 09:10 Dose: 10 ml Tizanidine HCl (Zanaflex) 2 mg PO QHS [facility] Last Admin: 01/06/18 23:35 Dose: Not Given Tolterodine Tartrate (Detrol La) 4 mg PO QHS [facility] Last Admin: 01/06/18 23:34 Dose: Not Given Topiramate (Topamax) 200 mg PO QHS [facility] Last Admin: 01/06/18 23:35 Dose: Not Given Clinical Impression(s) from Imaging Studies Abdomen/Pelvis CT 01/05/18 10:40 IMPRESSION: Inflammatory changes are seen in the region of the sigmoid colon extending to the left lateral wall of the urinary bladder with findings suggestive of inflammatory change. An air-fluid level is seen within the urinary bladder. A colovesical fistula should be ruled out. Electronically Signed: Tejas Carlson MD at 16:02 EST Tel [phone], Service support , Code Visit Inpatient E&M: 56063 Subs Hosp L2
[2018-01-07 09:37] LABS: Anion Gap 4 (5-15); BUN 8 mg/dL (7-18); BUN/Creat Ratio 7.8 RATIO (10-20); Calcium,Total 7.9 mg/dL (8.5-10.1); Chloride 111 mmol/L (98-107); Creatinine, Serum 1.02 mg/dL (0.55-1.02); EST Glomerular Filtration Rate 63 mL/min (>60); Est Glom Filt Rate - Afr Amer 76 mL/min (>60); Estimated Creatinine Clearance 68.44 ml/min; Glucose 101 mg/dL (74-106); Magnesium 1.8 mg/dL (1.6-2.6); Potassium 3.7 mmol/L (3.5-5.1); Sodium Level 143 mmol/L (136-145)
[2018-01-07] MEDS: Pantoprazole Sodium 20 MG Tablet PO (10:43)
[2018-01-07] MEDS: Mirabegron 50 MG TAB.ER.24H PO (10:43)
[2018-01-07] MEDS: Heparin Injection (Vial) 5,000 UNIT/ML VIAL 5000 UNIT SC (10:44)
--- NOTE | 2018-01-07 10:46 | PCM.PN.ID ---
Subjective: Still with significant, unchanged abd pain and nausea despite iv meds. No fever. - Physical Exam General: Alert, Cooperative, - - uncomfortable Lungs: Clear to auscultation, Normal air movement Cardiovascular: Regular rate, Regular Rhythm Abdomen: Soft, Non-Distended, Tender - suprapubic Skin: No rashes Vital Signs Temp Pulse Resp BP Pulse Ox 98.3 F 72 18 93/62 96 01/07/18 10:00 01/07/18 10:00 01/07/18 10:00 01/07/18 10:00 01/07/18 10:00 Oxygen Delivery Method Room Air Weight: 75.75 kg Body Mass Index (BMI) 26.2 Intake and Output for Last 24 Hours 01/05/18 01/06/18 01/07/18 23:59 23:59 23:59 Intake Total 2361 / 2361 2848 / 2848 1196 / 1196 Output Total 1160 / 1160 1400 / 1400 600 / 600 Balance 1201 / 1201 1448 / 1448 596 / 596 Microbiology Past 72 Hours 01/04/18 16:55 Urine Culture - Final Urine, Clean Catch Presumptive E. coli Laboratory Tests Past 24 Hrs 01/07/18 09:03 Sodium 143 Potassium 3.7 Chloride 111 H Carbon Dioxide 28.0 Anion Gap 4 L BUN 8 Creatinine 1.02 Estim Creat Clear Calc 68.44 Est GFR (MDRD) Af Amer 76 Est GFR (MDRD) Non-Af 63 BUN/Creatinine Ratio 7.8 L Glucose 101 Calcium 7.9 L Magnesium 1.8 Medical Necessity - Tobacco Use Smoking Status: Never smoker Tobacco Use: Non-smoker Route of nutrition/ use of supplements: [] Nutritional Intake: [] IV Site: [] Arceo Catheter: [] - Assessment/Plan Antibiotics: [] Assessment/Plan: [] Recurrent uti in pt with MS, now with significant abd pain and n/v s/p bladder bx by Dr. Eller 01/01/18 - UA with heavy pyuria. No fistula seen on CT 12/24. Multiple drug allergies. Ucx here with ecoli-like. CT showed possible fistula. Still with significant abd pain and nausea. Not improved after several days of iv abx, fluids, and narcotics. Will consult gen surg. Continue meropenem. Will follow, d/w Dr. Soria.
--- NOTE | 2018-01-07 11:36 | PCM.CONS.GEN ---
Reason for Consult Date of Consultation: 01/07/18 History of Present Illness: The patient is a 42 year old F admitted due to abdominal pain recurrent cystitis. Patient underwent bladder biopsy on 01/01/18. Having nausea and vomiting over the weekend along with abdominal pain. Patient states her lower abdominal pain is about the same from prior to the biopsy and continues to still be a 10+/10. She has been tolerating some water and tolerated some oatmeal today. She had a CT scan on 12/24/17 which showed no evidence of any colon thickening or colo-vesicular fistula. She had a repeat CT on 01/05/18 which showed some air in the bladder also thickened lateral wall which is where she had her biopsy and air is likely from her cystoscopy. Also states that the colon may be a little thickened in the sigmoid however this is also decompressed. She states she has had a colonoscopy about 5 years ago she thinks by someone at the [facility] in [place]. Patient has had urine cultures for E. coli multiple times this year. Past Medical History Past Medical History (Chronic Problems): Chronic Problems Overweight (BMI 25.0-29.9) (Chronic) Migraines (Chronic) Type 2 diabetes mellitus (Chronic) Multiple sclerosis (Chronic) Allergies adhesive tape Allergy (Verified 01/04/18 15:53) Rash aspirin [ASA] Allergy (Verified 01/04/18 15:53) Unknown cefpodoxime Allergy (Verified 01/04/18 15:53) Rash ciprofloxacin Allergy (Verified 01/04/18 15:53) Hives diclofenac Allergy (Verified 01/04/18 15:53) Rash gabapentin [From Neurontin] Allergy (Verified 01/04/18 15:53) Unknown latex Allergy (Verified 01/04/18 15:53) Rash levofloxacin [From Levaquin] Allergy (Verified 01/04/18 15:53) redness,rash nitrofurantoin Allergy (Verified 01/04/18 15:53) Unknown Penicillins Allergy (Verified 01/04/18 15:53) Anaphylaxis prednisone Allergy (Verified 01/04/18 15:53) Unknown pregabalin Allergy (Verified 01/04/18 15:53) Unknown cephalexin [From Keflex] Adverse Reaction (Verified 01/04/18 17:55) Upset Stomach norfloxacin [From Noroxin] Adverse Reaction (Verified 01/04/18 15:53) Upset Stomach phenytoin [From Dilantin] Adverse Reaction (Verified 01/04/18 15:53) loss of balance alvogen Allergy (Uncoded 01/04/18 15:53) Rash Home Medications: Ambulatory Orders Medication Instructions Recorded Baclofen [Lioresal] 10 mg PO QHS 04/15/16 Cholecalciferol (Vitamin D3) 5,000 unit PO DAILY 04/15/16 [Vitamin D3] Lisinopril [Zestril] 5 mg PO QODAY 04/15/16 Lorazepam [Ativan] 1 mg PO QHS 04/15/16 Lysine [l-Lysine] 1,000 mg PO DAILY 04/15/16 Mirabegron [Myrbetriq] 50 mg PO DAILY 04/15/16 Solifenacin Succinate [Vesicare] 10 mg PO QHS 04/15/16 Topiramate [Topamax] 200 mg PO QHS 04/15/16 Coconut Oil 2,000 mg PO DAILY 12/28/17 Cranberry Conc/Ascorbic Acid 1 each PO DAILY 12/28/17 [Cranberry 12,600 mg Softgel] Herbal Drugs [Colon Herbal 2 each PO QHS 12/28/17 Cleanser] Tizanidine HCl [Zanaflex] 2 mg PO QHS 12/28/17 Phenazopyridine HCl [Pyridium] 200 mg PO TID #20 tab 01/01/18 Ascorbic Acid [C-1000] 1,000 mg PO QHS 01/04/18 Ondansetron [Zofran Odt] 4 mg PO TID PRN 01/04/18 Cephalexin [Keflex] 500 mg PO Q8 #10 capsule 01/08/18 Ibuprofen 600 mg PO 4X/DAY #20 tablet 01/08/18 proMETHazine tablet [Phenergan 25 mg PO Q6H PRN PRN 5 Days #14 01/08/18 tablet] tablet Surgical History: noncontributory, - - x2, bladder sling surgery with mesh, hysterectomy, cholecystectomy, tonsillectomy, hammertoe surgery bilaterally, recent bladder biopsy. 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 Paternal History Items: Cancer - Bladder cancer, COPD, Diabetes, Heart Disease Offspring History Items: - - mental health Review of Systems Constitutional: Denies: Fever Eyes: Reports: Vision Change - Occasional seeing a dot in the left eye which will resolve on its own. Denies: Blurred vision HEENT: Denies: Difficulty Swallowing Cardiovascular: Denies: Chest Pain Respiratory: Denies: Shortness of Breath Gastrointestinal: Reports: Abdominal Pain Genitourinary: Reports: Dysuria Musculoskeletal: Denies: Joint Pain Skin: Denies: Rash Neurological: Reports: Numbness - In her fingers and feet due to MS Psychiatric: Reports: Anxiety - Controlled with medication. Denies: Depression Hematologic/ Lymphatic: Reports: Easy Bruising. Denies: Easy Bleeding - Physical Exam General: Alert, Oriented x3, Cooperative, No apparent distress HEENT: Atraumatic Neck: Supple Lungs: Normal air movement Cardiovascular: Regular rate Abdomen: Soft, Non-Distended, Passing Flatus, Tender - Bilateral lower quadrants and suprapubic, no peritoneal signs Extremities: No clubbing, No cyanosis, No edema Skin: No rashes Neurological: Cranial nerves II-XII grossly intact Psych/Mental Status: Normal Affect Vital Signs Temp Pulse Resp BP Pulse Ox 98.3 F 72 18 93/62 96 01/07/18 10:00 01/07/18 10:00 01/07/18 10:00 01/07/18 10:00 01/07/18 10:00 Oxygen Delivery Method Room Air Weight: 167 lb 0.002 oz Body Mass Index (BMI) 26.2 Intake and Output for Last 24 Hours 01/05/18 01/06/18 01/07/18 23:59 23:59 23:59 Intake Total 2361 / 2361 2848 / 2848 1196 / 1196 Output Total 1160 / 1160 1400 / 1400 600 / 600 Balance 1201 / 1201 1448 / 1448 596 / 596 Microbiology Past 72 Hours 01/04/18 16:55 Urine Culture - Final Urine, Clean Catch Presumptive E. coli Laboratory Tests Past 24 Hrs 01/07/18 09:03 Sodium 143 Potassium 3.7 Chloride 111 H Carbon Dioxide 28.0 Anion Gap 4 L BUN 8 Creatinine 1.02 Estim Creat Clear Calc 68.44 Est GFR (MDRD) Af Amer 76 Est GFR (MDRD) Non-Af 63 BUN/Creatinine Ratio 7.8 L Glucose 101 Calcium 7.9 L Magnesium 1.8 Assessment/Plan All Active Problems Pyelonephritis (Acute) UTI (urinary tract infection) (Acute) 42-year-old female with recurrent cystitis, rule out colovesical fistula 1. Due to patient's chronic course of cystitis with E. coli and having a fairly normal CT in December 24 which showed a normal colon which was distended with stool and a plane between the bladder with no evidence of a colovesicular fistula do not think the patient likely has a colovesicular fistula. CAT scan from 01/05/18 did show collapsed sigmoid which is difficult to tell for any thickening and the bladder wall thickening was more on the lateral aspect where she had a cystoscopy which is also a reason for the air in the bladder. But discussed with the patient and Dr. Ledezma that we can check CT with rectal contrast only to further evaluate this area. Per the patient and her pain has been ongoing and relatively the same since prior to the biopsy as it is post biopsy. Oksana Lopez M.D. Pager: [phone] [facility] [address] [place] [address], Outpatient [place], [address] [place] [address] Office: [phone] Code Visit Inpatient E&M: 63024 Init Hosp L2
--- NOTE | 2018-01-07 11:43 | CON.PCM_ITS ---
Reason for Consult Date of Consultation: 01/07/18 History of Present Illness: The patient is a 42 year old F admitted due to abdominal pain recurrent cystitis. Patient underwent bladder biopsy on 01/01/18. Having nausea and vomiting over the weekend along with abdominal pain. Patient states her lower abdominal pain is about the same from prior to the biopsy and continues to still be a 10+/10. She has been tolerating some water and tolerated some oatmeal today. She had a CT scan on 12/24/17 which showed no evidence of any colon thickening or colo-vesicular fistula. She had a repeat CT on 01/05/18 which showed some air in the bladder also thickened lateral wall which is where she had her biopsy and air is likely from her cystoscopy. Also states that the colon may be a little thickened in the sigmoid however this is also decompressed. She states she has had a colonoscopy about 5 years ago she thinks by someone at the [facility] in [place]. Patient has had urine cultures for E. coli multiple times this year. Past Medical History Past Medical History (Chronic Problems): Chronic Problems Overweight (BMI 25.0-29.9) (Chronic) Migraines (Chronic) Type 2 diabetes mellitus (Chronic) Multiple sclerosis (Chronic) Allergies adhesive tape Allergy (Verified 01/04/18 15:53) Rash aspirin [ASA] Allergy (Verified 01/04/18 15:53) Unknown cefpodoxime Allergy (Verified 01/04/18 15:53) Rash ciprofloxacin Allergy (Verified 01/04/18 15:53) Hives diclofenac Allergy (Verified 01/04/18 15:53) Rash gabapentin [From Neurontin] Allergy (Verified 01/04/18 15:53) Unknown latex Allergy (Verified 01/04/18 15:53) Rash levofloxacin [From Levaquin] Allergy (Verified 01/04/18 15:53) redness,rash nitrofurantoin Allergy (Verified 01/04/18 15:53) Unknown Penicillins Allergy (Verified 01/04/18 15:53) Anaphylaxis prednisone Allergy (Verified 01/04/18 15:53) Unknown pregabalin Allergy (Verified 01/04/18 15:53) Unknown cephalexin [From Keflex] Adverse Reaction (Verified 01/04/18 17:55) Upset Stomach norfloxacin [From Noroxin] Adverse Reaction (Verified 01/04/18 15:53) Upset Stomach phenytoin [From Dilantin] Adverse Reaction (Verified 01/04/18 15:53) loss of balance alvogen Allergy (Uncoded 01/04/18 15:53) Rash Home Medications: Ambulatory Orders Medication Instructions Recorded Baclofen [Lioresal] 10 mg PO QHS 04/15/16 Cholecalciferol (Vitamin D3) 5,000 unit PO DAILY 04/15/16 [Vitamin D3] Lisinopril [Zestril] 5 mg PO QODAY 04/15/16 Lorazepam [Ativan] 1 mg PO QHS 04/15/16 Lysine [l-Lysine] 1,000 mg PO DAILY 04/15/16 Mirabegron [Myrbetriq] 50 mg PO DAILY 04/15/16 Solifenacin Succinate [Vesicare] 10 mg PO QHS 04/15/16 Topiramate [Topamax] 200 mg PO QHS 04/15/16 Coconut Oil 2,000 mg PO DAILY 12/28/17 Cranberry Conc/Ascorbic Acid 1 each PO DAILY 12/28/17 [Cranberry 12,600 mg Softgel] Herbal Drugs [Colon Herbal 2 each PO QHS 12/28/17 Cleanser] Tizanidine HCl [Zanaflex] 2 mg PO QHS 12/28/17 Phenazopyridine HCl [Pyridium] 200 mg PO TID #20 tab 01/01/18 Ascorbic Acid [C-1000] 1,000 mg PO QHS 01/04/18 Ondansetron [Zofran Odt] 4 mg PO TID PRN 01/04/18 Cephalexin [Keflex] 500 mg PO Q8 #10 capsule 01/08/18 Ibuprofen 600 mg PO 4X/DAY #20 tablet 01/08/18 proMETHazine tablet [Phenergan 25 mg PO Q6H PRN PRN 5 Days #14 01/08/18 tablet] tablet Surgical History: noncontributory, - - x2, bladder sling surgery with mesh, hysterectomy, cholecystectomy, tonsillectomy, hammertoe surgery bilaterally, recent bladder biopsy. 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 Paternal History Items: Cancer - Bladder cancer, COPD, Diabetes, Heart Disease Offspring History Items: - - mental health Review of Systems Constitutional: Denies: Fever Eyes: Reports: Vision Change - Occasional seeing a dot in the left eye which will resolve on its own. Denies: Blurred vision HEENT: Denies: Difficulty Swallowing Cardiovascular: Denies: Chest Pain Respiratory: Denies: Shortness of Breath Gastrointestinal: Reports: Abdominal Pain Genitourinary: Reports: Dysuria Musculoskeletal: Denies: Joint Pain Skin: Denies: Rash Neurological: Reports: Numbness - In her fingers and feet due to MS Psychiatric: Reports: Anxiety - Controlled with medication. Denies: Depression Hematologic/ Lymphatic: Reports: Easy Bruising. Denies: Easy Bleeding - Physical Exam General: Alert, Oriented x3, Cooperative, No apparent distress HEENT: Atraumatic Neck: Supple Lungs: Normal air movement Cardiovascular: Regular rate Abdomen: Soft, Non-Distended, Passing Flatus, Tender - Bilateral lower quadrants and suprapubic, no peritoneal signs Extremities: No clubbing, No cyanosis, No edema Skin: No rashes Neurological: Cranial nerves II-XII grossly intact Psych/Mental Status: Normal Affect Vital Signs Temp Pulse Resp BP Pulse Ox 98.3 F 72 18 93/62 96 01/07/18 10:00 01/07/18 10:00 01/07/18 10:00 01/07/18 10:00 01/07/18 10:00 Oxygen Delivery Method Room Air Weight: 167 lb 0.002 oz Body Mass Index (BMI) 26.2 Intake and Output for Last 24 Hours 01/05/18 01/06/18 01/07/18 23:59 23:59 23:59 Intake Total 2361 / 2361 2848 / 2848 1196 / 1196 Output Total 1160 / 1160 1400 / 1400 600 / 600 Balance 1201 / 1201 1448 / 1448 596 / 596 Microbiology Past 72 Hours 01/04/18 16:55 Urine Culture - Final Urine, Clean Catch Presumptive E. coli Laboratory Tests Past 24 Hrs 01/07/18 09:03 Sodium 143 Potassium 3.7 Chloride 111 H Carbon Dioxide 28.0 Anion Gap 4 L BUN 8 Creatinine 1.02 Estim Creat Clear Calc 68.44 Est GFR (MDRD) Af Amer 76 Est GFR (MDRD) Non-Af 63 BUN/Creatinine Ratio 7.8 L Glucose 101 Calcium 7.9 L Magnesium 1.8 Assessment/Plan All Active Problems Pyelonephritis (Acute) UTI (urinary tract infection) (Acute) 42-year-old female with recurrent cystitis, rule out colovesical fistula 1. Due to patient's chronic course of cystitis with E. coli and having a fairly normal CT in December 24 which showed a normal colon which was distended with stool and a plane between the bladder with no evidence of a colovesicular fistula do not think the patient likely has a colovesicular fistula. CAT scan from 01/05/18 did show collapsed sigmoid which is difficult to tell for any thickening and the bladder wall thickening was more on the lateral aspect where she had a cystoscopy which is also a reason for the air in the bladder. But discussed with the patient and Dr. Ledezma that we can check CT with rectal contrast only to further evaluate this area. Per the patient and her pain has been ongoing and relatively the same since prior to the biopsy as it is post biopsy. Oksana Lopez M.D. Pager: [phone] [facility] [address] [place] [address], Outpatient [place], [address] [place] [address] Office: [phone] Code Visit Inpatient E&M: 44280 Init Hosp L2
--- NOTE | 2018-01-07 11:44 | CT_ITS ---
STUDY: CT ABDOMEN AND PELVIS WITHOUT CONTRAST REASON FOR EXAM: Female, 42 years old. Pain. Cystitis. Question of colovesicular fistula. Bladder surgery. RADIATION DOSAGE (If Supplied By Facility): CTDIvol = ( 12.55 ) mGy, DLP = ( 646.02 ) mGycm TECHNIQUE: Transaxial images were obtained from the dome of the diaphragm to the symphysis pubis with oral contrast, and without intravenous contrast. Sagittal and coronal images were reconstructed. Individualized dose optimization techniques were used for this CT. COMPARISON: 01/05/2018, 12/24/2017. FINDINGS: Limited views through the lower chest show patchy areas of subsegmental atelectasis in both lung bases left worse than right, and slightly worse than prior study. Normal liver. There is non-visualization of the gallbladder, which may be secondary to either contraction or a prior cholecystectomy. Normal spleen. Normal pancreas. Normal bilateral adrenal glands. Normal right kidney. Stable appearance of the left kidney with extensive scarring, atrophy, and parenchymal stones. Rectal contrast was given. Grossly normal appearance of the stomach. No dilated loops of small bowel or evidence for small bowel obstruction. However, small bowel is not opacified and cannot exclude segments of small bowel wall thickening. Large bowel is adequately opacified. It is normal caliber. There are no definite segments of bowel wall thickening. Markedly improved appearance of the sigmoid since previous exam. Currently, no definite segments of sigmoid wall thickening or diverticulitis. Also currently the sigmoid is seen to be significantly well from an inflammatory process involving the left side of the bladder. Bladder is emptied by a Arceo catheter but nevertheless appears to have an irregularly thickened wall and prominent perivesicular stranding along the left side. This may be inflammatory or neoplastic. No contrast has entered the bladder indicating no definite colovesical fistula. However, there is a small amount contrast seen in the vagina, suggesting the possibility enterovaginal fistula. Pelvic examination and direct visualization is recommended. Increased density seen in the presacral and ischiorectal fat planes, similar to prior study. Normal abdominal wall. Normal osseous structures. CT/Abdomen/Pelvis without Cont IMPRESSION: Current examination shows no definite colovesical fistula. In fact, there is currently no evidence for a significant infiltrate process of the sigmoid. Continued abnormal appearance of the bladder especially along the left side where there may be inflammatory or neoplastic process. Small amount of contrast in the vagina which could be from enterovaginal fistula. Electronically Signed: Skip Aiken MD at 17:18 EST , Service support ,
--- NOTE | 2018-01-07 23:10 | NURSING ---
PT still complaining of nausea and refusing HS medications.
[2018-01-08 02:22] VITALS: BP 98/48; PULSE 65; RESP 16; TEMP 36.7; O2SAT 96
[2018-01-08] MEDS: 0.9% NaCl VAD Flush 10 ML IV ×2 (05:38→08:38)
--- NOTE | 2018-01-08 06:42 | PCM.PN.BLA ---
Progress Note 42-year-old female admitted for E. coli UTI after bladder biopsy the biopsy came back negative for any carcinoma it was just inflammation of the bladder she does have recurrent bladder infections I do not think she has a fistula she had a CT scan that demonstrated no colovesical fistula there was some question about a vaginal contrast probably spillage during the procedure I do not think she is got a enterovaginal fistula either. Plan to have the catheter removed I am leaving out of town today now be out for the weekend she will had to be transferred to the hospitalist service if she has not discharged she is not tolerating much p.o. he not sure if she could be discharged and I am still not sure what antibiotics to send her home on, she still taking meropenem. Her abdomen soft and benign and now she complains of pain but she does not have a surgical abdomen if not tender, there is no rebounding, there is no peritonitis. 42-year-old female admitted for UTI resistant to Bactrim which she was sent home after the procedure it is sensitive to multiple antibiotics but she has multiple allergies or intolerances want to see what we recommend have her go home on. As of now and asked the hospitalist to be her primary care physician for the weekend as I will be out of town.
[2018-01-08] MEDS: Phenazopyridine 95 MG Tablet 190 MG PO (06:50)
[2018-01-08] MEDS: proMETHazine 25 MG/ML Syringe 12.5 MG IV (06:50)
--- NOTE | 2018-01-08 06:54 | NURSING ---
Called by staff to assess power port not flushing or withdrawing. Port de-accessed and re-accessed with power port 20 gauge 3/4 needle. blood returned obtained and easily flushes.
[2018-01-08 07:05] LABS: Hematocrit 29.6 % (37-47); Hemoglobin 9.6 g/dl (12.0-15.0); Mean Corp Hgb Conc 32.4 g/gl (32-36); Mean Corpuscular Hgb 30.3 pg (27.0-32.0); Mean Corpuscular Volume 93.4 fL (81-99); Mean Platelet Vol. 9.6 fl (6.2-12.0); Platelet Count 208 K/mm3 (150-450); RBC Distribution Width CV 12.1 % (11.6-14.6); RBC Distribution Width SD 39.8 fl (35.1-43.9); Red Blood Count 3.17 M/mm3 (4.2-5.4)
[2018-01-08 07:06] LABS: Scan Indicated on CBC? Y/N NO
[2018-01-08 07:26] LABS: Anion Gap 4 (5-15); BUN 6 mg/dL (7-18); BUN/Creat Ratio 6.4 RATIO (10-20); Calcium,Total 8.2 mg/dL (8.5-10.1); Chloride 110 mmol/L (98-107); Creatinine, Serum 0.94 mg/dL (0.55-1.02); EST Glomerular Filtration Rate 69 mL/min (>60); Est Glom Filt Rate - Afr Amer 83 mL/min (>60); Estimated Creatinine Clearance 74.27 ml/min; Glucose 80 mg/dL (74-106); Potassium 3.7 mmol/L (3.5-5.1); Sodium Level 144 mmol/L (136-145)
[2018-01-08] MEDS: Ondansetron 4 MG/2 ML Vial IV (08:38)
[2018-01-08 08:44] VITALS: BP 113/67; PULSE 73; RESP 16; TEMP 36.8; O2SAT 98
--- NOTE | 2018-01-08 09:20 | PCM.PN.HOSP ---
Subjective: Patient is a 42-year-old lady admitted by Dr. Eller currently being treated for cystitis. Patient seen this a.m. complains of nausea on unable to taste anything. Patient had apparently received Zofran did explain the patient will could try p.o. or IM Phenergan; patient became upset at the suggestion of [place]; she is stated that she wanted a physician who speaks [place]; did inform patients will inform Dr. Eller since he is attending and will let him resume all care from this point. To call and did inform regarding my conversation with patient and the fact that I am signing off this case. Objective: GENERAL: Uncooperative HEENT: Atraumatic; moist oral mucosa EYES; Anicteric, Normal Conjunctiva NECK; supple, normal thyroid, no distended JVD. EXTREMITIES: No edema, no clubbing, no cyanosis. MUSCULOSKELETAL: No Joint Tenderness; no muscle waisting NEURO: Awake; no lateralizing signs. SKIN: No Rash PSYCH; Flat affect Vitals/I&O's: Vital Signs Temp Pulse Resp BP Pulse Ox 98.3 F 73 16 113/67 98 01/08/18 08:44 01/08/18 08:44 01/08/18 08:44 01/08/18 08:44 01/08/18 08:44 Oxygen Delivery Method Room Air Weight: 75.75 kg Body Mass Index (BMI) 26.2 Intake and Output for Last 24 Hours 01/06/18 01/07/18 01/08/18 23:59 23:59 23:59 Intake Total 2848 / 2848 2099 / 2099 123 / 123 Output Total 1400 / 1400 1600 / 1600 925 / 925 Balance 1448 / 1448 499 / 499 -802 / -802 Microbiology Past 72 Hours 01/04/18 16:55 Urine, Clean Catch Urine Culture - Final Presumptive E. coli Laboratory Results 01/07/18 09:03: Sodium 143, Potassium 3.7, Chloride 111 H, Carbon Dioxide 28.0, Anion Gap 4 L, BUN 8, Creatinine 1.02, Estim Creat Clear Calc 68.44, Est GFR (MDRD) Af Amer 76, Est GFR (MDRD) Non-Af 63, BUN/Creatinine Ratio 7.8 L, Glucose 101, Calcium 7.9 L, Magnesium 1.8 01/08/18 06:50: WBC 2.0 L, RBC 3.17 L, Hgb 9.6 L, Hct 29.6 L, MCV 93.4, MCH 30.3, MCHC 32.4, RDW 12.1, RDW Differential 39.8, Plt Count 208, MPV 9.6 01/08/18 06:50: Sodium 144, Potassium 3.7, Chloride 110 H, Carbon Dioxide 30.0, Anion Gap 4 L, BUN 6 L, Creatinine 0.94, Estim Creat Clear Calc 74.27, Est GFR (MDRD) Af Amer 83, Est GFR (MDRD) Non-Af 69, BUN/Creatinine Ratio 6.4 L, Glucose 80, Calcium 8.2 L Current Medications Acetaminophen (Tylenol) 650 mg PO Q6H PRN PRN PRN Reason: Mild Pain (scale 0-3)/T>100.7 Hydrocodone Bitart/Acetaminophen ([place] 5mg-325mg) 1 tablet PO Q4H PRN PRN PRN Reason: PAIN Last Admin: 01/07/18 18:36 Dose: 1 tablet Al Hydroxide/Mg Hydroxide (Mylanta Ii) 30 ml PO Q6H PRN PRN PRN Reason: Gastric burning Baclofen (Lioresal) 10 mg PO QHS [facility] Last Admin: 01/07/18 23:11 Dose: Not Given Heparin Sodium (Beef Lung) () 50 units IV UD PRN PRN Reason: HEPARIN FLUSH Heparin Sodium (Porcine) (Heparin Na) 5,000 unit SC Q12 [facility] Last Admin: 01/07/18 23:11 Dose: Not Given Meropenem 1 gm/ Sodium (Chloride) 120 mls @ 33 mls/hr IV Q8 [facility] Last Admin: 01/08/18 06:50 Dose: 33 mls/hr Lisinopril (Zestril) 5 mg PO QODAY [facility] Last Admin: 01/07/18 14:17 Dose: Not Given Lorazepam (Ativan) 1 mg PO QHS [facility] Last Admin: 01/07/18 23:10 Dose: Not Given Magnesium Hydroxide (Milk Of Magnesia) 30 ml PO DAILY PRN PRN PRN Reason: Constipation Last Admin: 01/07/18 08:27 Dose: 30 ml Nutritional Formula (Lactose Free) (Ensure Clear) 120 ml PO 4X/DAY [facility] Last Admin: 01/07/18 23:00 Dose: Not Given Ondansetron HCl (Zofran) 4 mg IV Q8H PRN PRN PRN Reason: NAUSEA Last Admin: 01/08/18 08:38 Dose: 4 mg Pantoprazole Sodium (Protonix) 20 mg PO DAILY [facility] Last Admin: 01/07/18 10:43 Dose: 20 mg Phenazopyridine HCl (Azo Standard) 190 mg PO TID [facility] Last Admin: 01/08/18 06:50 Dose: 190 mg Promethazine HCl (Phenergan) 12.5 mg IV Q6H PRN PRN PRN Reason: NAUSEA/VOMITING Last Admin: 01/08/18 06:50 Dose: 12.5 mg Sodium Chloride () 10 ml IV UD PRN PRN Reason: VAD FLUSH Last Admin: 01/08/18 08:38 Dose: 10 ml Tizanidine HCl (Zanaflex) 2 mg PO QHS [facility] Last Admin: 01/07/18 23:11 Dose: Not Given Tolterodine Tartrate (Detrol La) 4 mg PO QHS [facility] Last Admin: 01/07/18 23:11 Dose: Not Given Topiramate (Topamax) 200 mg PO QHS [facility] Last Admin: 01/07/18 23:11 Dose: Not Given Medical Necessity - Tobacco Use Smoking Status: Never smoker Tobacco Use: Non-smoker Assessment/Plan All Active Problems Pyelonephritis (Acute) UTI (urinary tract infection) (Acute) Patient is a 42-year-old lady admitted with suprapubic pain. She had apparently undergone bladder biopsy by Dr. Eller on 01/11/2018. An assessment of acute cystitis was made admitted to regular nursing floor for further management. 1. Acute implicated UTI (cystitis) E. coli (non-ESBL): Patient has been admitted to regular nursing floor started on Rocephin switched to meropenem by infectious disease. Subsequent antibiotic management deferred. 2. Recent bladder biopsy by Dr. Eller with urology consult 3. Multiple sclerosis and is followed by a neurologist at [facility] Dr. De La Cruz 4. Chronic migraine headaches: Is on Topamax 5. Abdominal discomfort. 6. DVT prophylaxis SC heparin Signing off case since patient requested physician who speaks [place]. This was communicated to Dr. Eller patient's attending Code Visit Inpatient E&M: 09947 Subs Hosp L1
--- NOTE | 2018-01-08 09:23 | DCINST_ITS ---
Discharge Diet: Light diet - advance as tolerated Discharge Activity: Return to Normal Activity Call your doctor if you observe: Fever of 101 or Higher Suture Line Care: Avoid Pulling/Pushing, Avoid Pinching/Bending Allergies/Adverse Reactions: Allergies adhesive tape Allergy (Verified 01/04/18 15:53) Rash aspirin [ASA] Allergy (Verified 01/04/18 15:53) Unknown cefpodoxime Allergy (Verified 01/04/18 15:53) Rash ciprofloxacin Allergy (Verified 01/04/18 15:53) Hives diclofenac Allergy (Verified 01/04/18 15:53) Rash gabapentin [From Neurontin] Allergy (Verified 01/04/18 15:53) Unknown latex Allergy (Verified 01/04/18 15:53) Rash levofloxacin [From Levaquin] Allergy (Verified 01/04/18 15:53) redness,rash nitrofurantoin Allergy (Verified 01/04/18 15:53) Unknown Penicillins Allergy (Verified 01/04/18 15:53) Anaphylaxis prednisone Allergy (Verified 01/04/18 15:53) Unknown pregabalin Allergy (Verified 01/04/18 15:53) Unknown cephalexin [From Keflex] Adverse Reaction (Verified 01/04/18 17:55) Upset Stomach norfloxacin [From Noroxin] Adverse Reaction (Verified 01/04/18 15:53) Upset Stomach phenytoin [From Dilantin] Adverse Reaction (Verified 01/04/18 15:53) loss of balance alvogen Allergy (Uncoded 01/04/18 15:53) Rash Medications to take at Discharge Baclofen [Lioresal] 10 mg PO QHS 04/15/16 Cholecalciferol (Vitamin D3) [Vitamin D3] 5,000 unit PO DAILY 04/15/16 Lisinopril [Zestril] 5 mg PO QODAY 04/15/16 Lorazepam [Ativan] 1 mg PO QHS 04/15/16 Lysine [l-Lysine] 1,000 mg PO DAILY 04/15/16 Mirabegron [Myrbetriq] 50 mg PO DAILY 04/15/16 Solifenacin Succinate [Vesicare] 10 mg PO QHS 04/15/16 Topiramate [Topamax] 200 mg PO QHS 04/15/16 Coconut Oil 2,000 mg PO DAILY 12/28/17 Cranberry Conc/Ascorbic Acid [Cranberry 12,600 mg Softgel] 1 each PO DAILY 12/28/17 Herbal Drugs [Colon Herbal Cleanser] 2 each PO QHS 12/28/17 Tizanidine HCl [Zanaflex] 2 mg PO QHS 12/28/17 Phenazopyridine HCl [Pyridium] 200 mg PO TID #20 tab 01/01/18 Ascorbic Acid [C-1000] 1,000 mg PO QHS 01/04/18 Ondansetron [Zofran Odt] 4 mg PO TID PRN 01/04/18 Cephalexin [Keflex] 500 mg PO Q8 #10 capsule 01/08/18 Ibuprofen 600 mg PO 4X/DAY #20 tablet 01/08/18 proMETHazine tablet [Phenergan tablet] 25 mg PO Q6H PRN PRN 5 Days #14 tablet 01/08/18 The following prescriptions were given: proMETHazine tablet [Phenergan tablet] 25 mg PO Q6H PRN PRN 5 Days #14 tablet PRN Reason: Nausea Cephalexin [Keflex] 500 mg PO Q8 #10 capsule Ibuprofen 600 mg PO 4X/DAY #20 tablet Primary Care Physician: Erik Ibrahim MD [Primary Care Provider] - Test Results: Test results from this visit will be discussed in further detail at your follow- up appointment, if applicable. Please Follow Up With: Apolinar Eller MD When: in 2 weeks, please call to make an appointment.
--- NOTE | 2018-01-08 09:26 | PN_ITS ---
Subjective: Patient is a 42-year-old lady admitted by Dr. Eller currently being treated for cystitis. Patient seen this a.m. complains of nausea on unable to taste anything. Patient had apparently received Zofran did explain the patient will could try p.o. or IM Phenergan; patient became upset at the suggestion of [place]; she is stated that she wanted a physician who speaks [place]; did inform patients will inform Dr. Eller since he is attending and will let him resume all care from this point. To call and did inform regarding my conversation with patient and the fact that I am signing off this case. Objective: GENERAL: Uncooperative HEENT: Atraumatic; moist oral mucosa EYES; Anicteric, Normal Conjunctiva NECK; supple, normal thyroid, no distended JVD. EXTREMITIES: No edema, no clubbing, no cyanosis. MUSCULOSKELETAL: No Joint Tenderness; no muscle waisting NEURO: Awake; no lateralizing signs. SKIN: No Rash PSYCH; Flat affect Vitals/I&O's: Vital Signs Temp Pulse Resp BP Pulse Ox 98.3 F 73 16 113/67 98 01/08/18 08:44 01/08/18 08:44 01/08/18 08:44 01/08/18 08:44 01/08/18 08:44 Oxygen Delivery Method Room Air Weight: 75.75 kg Body Mass Index (BMI) 26.2 Intake and Output for Last 24 Hours 01/06/18 01/07/18 01/08/18 23:59 23:59 23:59 Intake Total 2848 / 2848 2099 / 2099 123 / 123 Output Total 1400 / 1400 1600 / 1600 925 / 925 Balance 1448 / 1448 499 / 499 -802 / -802 Microbiology Past 72 Hours 01/04/18 16:55 Urine, Clean Catch Urine Culture - Final Presumptive E. coli Laboratory Results 01/07/18 09:03: Sodium 143, Potassium 3.7, Chloride 111 H, Carbon Dioxide 28.0, Anion Gap 4 L, BUN 8, Creatinine 1.02, Estim Creat Clear Calc 68.44, Est GFR (MDRD) Af Amer 76, Est GFR (MDRD) Non-Af 63, BUN/Creatinine Ratio 7.8 L, Glucose 101, Calcium 7.9 L, Magnesium 1.8 01/08/18 06:50: WBC 2.0 L, RBC 3.17 L, Hgb 9.6 L, Hct 29.6 L, MCV 93.4, MCH 30.3, MCHC 32.4, RDW 12.1, RDW Differential 39.8, Plt Count 208, MPV 9.6 01/08/18 06:50: Sodium 144, Potassium 3.7, Chloride 110 H, Carbon Dioxide 30.0, Anion Gap 4 L, BUN 6 L, Creatinine 0.94, Estim Creat Clear Calc 74.27, Est GFR (MDRD) Af Amer 83, Est GFR (MDRD) Non-Af 69, BUN/Creatinine Ratio 6.4 L, Glucose 80, Calcium 8.2 L Current Medications Acetaminophen (Tylenol) 650 mg PO Q6H PRN PRN PRN Reason: Mild Pain (scale 0-3)/T>100.7 Hydrocodone Bitart/Acetaminophen ([place] 5mg-325mg) 1 tablet PO Q4H PRN PRN PRN Reason: PAIN Last Admin: 01/07/18 18:36 Dose: 1 tablet Al Hydroxide/Mg Hydroxide (Mylanta Ii) 30 ml PO Q6H PRN PRN PRN Reason: Gastric burning Baclofen (Lioresal) 10 mg PO QHS [facility] Last Admin: 01/07/18 23:11 Dose: Not Given Heparin Sodium (Beef Lung) () 50 units IV UD PRN PRN Reason: HEPARIN FLUSH Heparin Sodium (Porcine) (Heparin Na) 5,000 unit SC Q12 [facility] Last Admin: 01/07/18 23:11 Dose: Not Given Meropenem 1 gm/ Sodium (Chloride) 120 mls @ 33 mls/hr IV Q8 [facility] Last Admin: 01/08/18 06:50 Dose: 33 mls/hr Lisinopril (Zestril) 5 mg PO QODAY [facility] Last Admin: 01/07/18 14:17 Dose: Not Given Lorazepam (Ativan) 1 mg PO QHS [facility] Last Admin: 01/07/18 23:10 Dose: Not Given Magnesium Hydroxide (Milk Of Magnesia) 30 ml PO DAILY PRN PRN PRN Reason: Constipation Last Admin: 01/07/18 08:27 Dose: 30 ml Nutritional Formula (Lactose Free) (Ensure Clear) 120 ml PO 4X/DAY [facility] Last Admin: 01/07/18 23:00 Dose: Not Given Ondansetron HCl (Zofran) 4 mg IV Q8H PRN PRN PRN Reason: NAUSEA Last Admin: 01/08/18 08:38 Dose: 4 mg Pantoprazole Sodium (Protonix) 20 mg PO DAILY [facility] Last Admin: 01/07/18 10:43 Dose: 20 mg Phenazopyridine HCl (Azo Standard) 190 mg PO TID [facility] Last Admin: 01/08/18 06:50 Dose: 190 mg Promethazine HCl (Phenergan) 12.5 mg IV Q6H PRN PRN PRN Reason: NAUSEA/VOMITING Last Admin: 01/08/18 06:50 Dose: 12.5 mg Sodium Chloride () 10 ml IV UD PRN PRN Reason: VAD FLUSH Last Admin: 01/08/18 08:38 Dose: 10 ml Tizanidine HCl (Zanaflex) 2 mg PO QHS [facility] Last Admin: 01/07/18 23:11 Dose: Not Given Tolterodine Tartrate (Detrol La) 4 mg PO QHS [facility] Last Admin: 01/07/18 23:11 Dose: Not Given Topiramate (Topamax) 200 mg PO QHS [facility] Last Admin: 01/07/18 23:11 Dose: Not Given Medical Necessity - Tobacco Use Smoking Status: Never smoker Tobacco Use: Non-smoker Assessment/Plan All Active Problems Pyelonephritis (Acute) UTI (urinary tract infection) (Acute) Patient is a 42-year-old lady admitted with suprapubic pain. She had apparently undergone bladder biopsy by Dr. Eller on 01/11/2018. An assessment of acute cystitis was made admitted to regular nursing floor for further management. 1. Acute implicated UTI (cystitis) E. coli (non-ESBL): Patient has been admitted to regular nursing floor started on Rocephin switched to meropenem by infectious disease. Subsequent antibiotic management deferred. 2. Recent bladder biopsy by Dr. Eller with urology consult 3. Multiple sclerosis and is followed by a neurologist at [facility] Dr. De La Cruz 4. Chronic migraine headaches: Is on Topamax 5. Abdominal discomfort. 6. DVT prophylaxis SC heparin Signing off case since patient requested physician who speaks [place]ican. This was communicated to Dr. Eller patient's attending Code Visit Inpatient E&M: 13669 Subs Hosp L1
[2018-01-08 10:52] VITALS: O2SAT 97
--- NOTE | 2018-01-08 11:02 | PCM.PN.SRG ---
Subjective: Patient does states she has been having some vaginal discharge and her pad for a long time that can be yellow to brown color. She does states she recently also had GOLD ASSAYER exam and everything was okay. CT abdomen pelvis with rectal contrast shows no colovesical fistula there is some contrast in the vaginal cuff cannot rule out colovaginal fistula but no clear track of contrast seen between the rectum and vaginal cuff - Physical Exam General: Alert, Oriented x3, Cooperative, No apparent distress Abdomen: Soft, Non-Distended, Tender - Lower lower quadrant, no peritoneal signs Vital Signs Temp Pulse Resp BP Pulse Ox 98.3 F 73 16 113/67 97 01/08/18 08:44 01/08/18 08:44 01/08/18 08:44 01/08/18 08:44 01/08/18 10:52 Oxygen Delivery Method Room Air Weight: 167 lb 0.002 oz Body Mass Index (BMI) 26.2 Intake and Output for Last 24 Hours 01/06/18 01/07/18 01/08/18 23:59 23:59 23:59 Intake Total 2848 / 2848 2099 / 2099 123 / 123 Output Total 1400 / 1400 1600 / 1600 925 / 925 Balance 1448 / 1448 499 / 499 -802 / -802 Microbiology Past 72 Hours 01/04/18 16:55 Urine Culture - Final Urine, Clean Catch Presumptive E. coli Laboratory Tests Past 24 Hrs 01/08/18 01/08/18 06:50 06:50 WBC 2.0 L RBC 3.17 L Hgb 9.6 L Hct 29.6 L MCV 93.4 MCH 30.3 MCHC 32.4 RDW 12.1 RDW Differential 39.8 Plt Count 208 MPV 9.6 Sodium 144 Potassium 3.7 Chloride 110 H Carbon Dioxide 30.0 Anion Gap 4 L BUN 6 L Creatinine 0.94 Estim Creat Clear Calc 74.27 Est GFR (MDRD) Af Amer 83 Est GFR (MDRD) Non-Af 69 BUN/Creatinine Ratio 6.4 L Glucose 80 Calcium 8.2 L Medical Necessity - Tobacco Use Smoking Status: Never smoker Tobacco Use: Non-smoker Assessment/Plan All Active Problems Pyelonephritis (Acute) UTI (urinary tract infection) (Acute) 42-year-old female with recurrent cystitis, rule out colovesical fistula 1. CT abdomen pelvis rule out colovesical fistula, however there was some contrast in the vaginal cuff question whether this could be spillage but cannot rule out colovaginal fistula even though there is no obvious tract of contrast from the rectum to the vaginal cuff. Discussed with the patient since she has had vaginal discharge I would recommend following up with her GOLD ASSAYER to have another exam to see if he sees any evidence of a fistula as and outpatient. Patient states she has had a recent exam which was good per the patient. Discussed with the patient if they did find evidence of a fistula would recommend her seeing colorectal surgeon as this would be likely rectovaginal fistula. Oksana Lopez M.D. Pager: [phone] [facility] [address] [place] [address], [address] [place] [address] Office: [phone]
--- NOTE | 2018-01-08 11:07 | PN.SURG_ITS ---
Subjective: Patient does states she has been having some vaginal discharge and her pad for a long time that can be yellow to brown color. She does states she recently also had ENDORSEMENT CLERK exam and everything was okay. CT abdomen pelvis with rectal contrast shows no colovesical fistula there is some contrast in the vaginal cuff cannot rule out colovaginal fistula but no clear track of contrast seen between the rectum and vaginal cuff - Physical Exam General: Alert, Oriented x3, Cooperative, No apparent distress Abdomen: Soft, Non-Distended, Tender - Lower lower quadrant, no peritoneal signs Vital Signs Temp Pulse Resp BP Pulse Ox 98.3 F 73 16 113/67 97 01/08/18 08:44 01/08/18 08:44 01/08/18 08:44 01/08/18 08:44 01/08/18 10:52 Oxygen Delivery Method Room Air Weight: 167 lb 0.002 oz Body Mass Index (BMI) 26.2 Intake and Output for Last 24 Hours 01/06/18 01/07/18 01/08/18 23:59 23:59 23:59 Intake Total 2848 / 2848 2099 / 2099 123 / 123 Output Total 1400 / 1400 1600 / 1600 925 / 925 Balance 1448 / 1448 499 / 499 -802 / -802 Microbiology Past 72 Hours 01/04/18 16:55 Urine Culture - Final Urine, Clean Catch Presumptive E. coli Laboratory Tests Past 24 Hrs 01/08/18 01/08/18 06:50 06:50 WBC 2.0 L RBC 3.17 L Hgb 9.6 L Hct 29.6 L MCV 93.4 MCH 30.3 MCHC 32.4 RDW 12.1 RDW Differential 39.8 Plt Count 208 MPV 9.6 Sodium 144 Potassium 3.7 Chloride 110 H Carbon Dioxide 30.0 Anion Gap 4 L BUN 6 L Creatinine 0.94 Estim Creat Clear Calc 74.27 Est GFR (MDRD) Af Amer 83 Est GFR (MDRD) Non-Af 69 BUN/Creatinine Ratio 6.4 L Glucose 80 Calcium 8.2 L Medical Necessity - Tobacco Use Smoking Status: Never smoker Tobacco Use: Non-smoker Assessment/Plan All Active Problems Pyelonephritis (Acute) UTI (urinary tract infection) (Acute) 42-year-old female with recurrent cystitis, rule out colovesical fistula 1. CT abdomen pelvis rule out colovesical fistula, however there was some contrast in the vaginal cuff question whether this could be spillage but cannot rule out colovaginal fistula even though there is no obvious tract of contrast from the rectum to the vaginal cuff. Discussed with the patient since she has had vaginal discharge I would recommend following up with her ENDORSEMENT CLERK to have another exam to see if he sees any evidence of a fistula as and outpatient. Patient states she has had a recent exam which was good per the patient. Discussed with the patient if they did find evidence of a fistula would recommend her seeing colorectal surgeon as this would be likely rectovaginal fistula. Oksana Lopez M.D. Pager: [phone] [facility] [address] [place] [address], [address] [place] [address] Office: [phone]
--- NOTE | 2018-01-08 11:56 | PCM.PN.ID ---
Subjective: Feeling frustrated with care. Pain better, still some nausea. - Physical Exam General: Alert, Cooperative, No apparent distress Lungs: Clear to auscultation, Normal air movement Cardiovascular: Regular rate, Regular Rhythm Abdomen: Soft, Non-Distended, Tender - less tender Skin: No rashes Vital Signs Temp Pulse Resp BP Pulse Ox 98.3 F 73 16 113/67 97 01/08/18 08:44 01/08/18 08:44 01/08/18 08:44 01/08/18 08:44 01/08/18 10:52 Oxygen Delivery Method Room Air Weight: 75.75 kg Body Mass Index (BMI) 26.2 Intake and Output for Last 24 Hours 01/06/18 01/07/18 01/08/18 23:59 23:59 23:59 Intake Total 2848 / 2848 2099 / 2099 123 / 123 Output Total 1400 / 1400 1600 / 1600 925 / 925 Balance 1448 / 1448 499 / 499 -802 / -802 Microbiology Past 72 Hours 01/04/18 16:55 Urine Culture - Final Urine, Clean Catch Presumptive E. coli Laboratory Tests Past 24 Hrs 01/08/18 01/08/18 06:50 06:50 WBC 2.0 L RBC 3.17 L Hgb 9.6 L Hct 29.6 L MCV 93.4 MCH 30.3 MCHC 32.4 RDW 12.1 RDW Differential 39.8 Plt Count 208 MPV 9.6 Sodium 144 Potassium 3.7 Chloride 110 H Carbon Dioxide 30.0 Anion Gap 4 L BUN 6 L Creatinine 0.94 Estim Creat Clear Calc 74.27 Est GFR (MDRD) Af Amer 83 Est GFR (MDRD) Non-Af 69 BUN/Creatinine Ratio 6.4 L Glucose 80 Calcium 8.2 L Medical Necessity - Tobacco Use Smoking Status: Never smoker Tobacco Use: Non-smoker Route of nutrition/ use of supplements: [] Nutritional Intake: [] IV Site: [] Arceo Catheter: [] - Assessment/Plan Antibiotics: [] Assessment/Plan: [] Recurrent uti in pt with MS, now with significant abd pain and n/v s/p bladder bx by Dr. Eller 01/01/18 - UA with heavy pyuria. No fistula seen on CT 12/24. Multiple drug allergies. Ucx here with ecoli-like. 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 Ok for d/c home on po omnicef for 4 more days with lumber sorter follow-up. Will follow, d/w upper caser and Dr. Eller
[2018-01-08] MEDS: Mirabegron 50 MG TAB.ER.24H PO (12:15)
[2018-01-08] MEDS: Pantoprazole Sodium 20 MG Tablet PO (12:15)
[2018-01-08 12:28] VITALS: BP 103/76; PULSE 77; RESP 16; TEMP 37.1; O2SAT 96
[2018-01-08 14:05] VITALS: BP 103/76; PULSE 77; RESP 16; TEMP 37.1; O2SAT 96
--- NOTE | 2018-01-08 14:13 | NURSING ---
PT RESTING QUIETLY WITH EYES CLOSED, RESP EASY
--- NOTE | 2018-01-11 10:29 | DS.PCM_ITS ---
Discharge Date and Diagnosis Date of Admission: 01/05/18 Date of Discharge: 01/08/18 - Secondary Discharge Diagnosis Chronic Problems Overweight (BMI 25.0-29.9) (Chronic) Migraines (Chronic) Type 2 diabetes mellitus (Chronic) Multiple sclerosis (Chronic) Hospital Course and Treatment Operations: None Procedures: None Summary of Care Provided: The patient is a 42 year old female s/p TURBT of the bladder for concer for cancer, biopsy was negative admitted for resistant UTI with Ecol, has many drug allergies, admitted for UTI post op, was sent home with bactrim and Ecoli was resistant to bactrim, placed on IV meropenem with out any problems, vomiting stopped, seen by Urology and general surgery who ruled out fistula. finally on day #3 was discharge with Omnicef per ID recommendations. recommended follow up with [facility] G[facility] SPECIALIST and Urology. On discharge was keeping liquids down no vomiting some nausea problems from antibiotics given medication to treat nausea. - Physical Exam General: Alert, Oriented x3, Cooperative HEENT: Atraumatic, PERRLA, EOMI, Normocephalic Neck: Supple, No JVD, Negative Carotid Bruits Lungs: Clear to auscultation, Normal air movement Cardiovascular: Regular rate, No murmurs Abdomen: Bowel Sounds Present, Soft, Non Tender Extremities: No edema, Capillary Refill Less than 3 Seconds Skin: No rashes, No breakdown Musculoskeletal: No Tenderness to Palpation of Joints or Extremities Neurological: Cranial nerves II-XII grossly intact Psych/Mental Status: Normal Affect, Appropriate Vital Signs Temp Pulse Resp BP Pulse Ox 98.8 F 77 16 103/76 96 01/08/18 14:05 01/08/18 14:05 01/08/18 14:05 01/08/18 14:05 01/08/18 14:05 Oxygen Delivery Method Room Air Weight: 75.75 kg Body Mass Index (BMI) 26.2 Discharge Diet: Light diet - advance as tolerated Discharge Activity: Return to Normal Activity Call your doctor if you observe: Fever of 101 or Higher Suture Line Care: Avoid Pulling/Pushing, Avoid Pinching/Bending Home Medications: Medications to take at Discharge Baclofen [Lioresal] 10 mg PO QHS 04/15/16 Cholecalciferol (Vitamin D3) [Vitamin D3] 5,000 unit PO DAILY 04/15/16 Lisinopril [Zestril] 5 mg PO QODAY 04/15/16 Lorazepam [Ativan] 1 mg PO QHS 04/15/16 Lysine [l-Lysine] 1,000 mg PO DAILY 04/15/16 Mirabegron [Myrbetriq] 50 mg PO DAILY 04/15/16 Solifenacin Succinate [Vesicare] 10 mg PO QHS 04/15/16 Topiramate [Topamax] 200 mg PO QHS 04/15/16 Coconut Oil 2,000 mg PO DAILY 12/28/17 Cranberry Conc/Ascorbic Acid [Cranberry 12,600 mg Softgel] 1 each PO DAILY 12/28/17 Herbal Drugs [Colon Herbal Cleanser] 2 each PO QHS 12/28/17 Tizanidine HCl [Zanaflex] 2 mg PO QHS 12/28/17 Phenazopyridine HCl [Pyridium] 200 mg PO TID #20 tab 01/01/18 Ascorbic Acid [C-1000] 1,000 mg PO QHS 01/04/18 Ondansetron [Zofran Odt] 4 mg PO TID PRN 01/04/18 Cefdinir [Omnicef [equiv]] 300 mg PO Q12 #8 capsule 01/08/18 Ibuprofen 600 mg PO 4X/DAY #20 tablet 01/08/18 proMETHazine tablet [Phenergan tablet] 25 mg PO Q6H PRN PRN 5 Days #14 tablet 01/08/18 Following Prescrptions Were Given to Patient: proMETHazine tablet [Phenergan tablet] 25 mg PO Q6H PRN PRN 5 Days #14 tablet PRN Reason: Nausea Cefdinir [Omnicef [equiv]] 300 mg PO Q12 #8 capsule Ibuprofen 600 mg PO 4X/DAY #20 tablet Primary Care Physician: Erik Ibrahim MD [Primary Care Provider] - Please Follow Up With: Apolinar Eller MD When: in 2 weeks, please call to make an appointment. Medical Necessity - Tobacco Use Smoking Status: Never smoker Tobacco Use: Non-smoker Meaningful Use Info Meaningful Use Diagnoses (Choose all that apply): None applicable
--- NOTE | 2018-01-11 12:04 | CASEMGMT ---
JOYA KNIGHT Discharge Follow-up Phone Call: JASON: Durga Strata: 3 Call Date: 01/11/18 Discharge Date: 01/08/18 Time of Call: 1150 Duration: 15 minutes ? Admitting Diagnosis: Resistant EColi UTI post TURBT This RN ANTONIA spoke with pt re: status since discharged on 01/08. Pt states she is gradually getting her appetite back and has been able to tolerate advances in her diet. Pt relays concern re: metallic taste in her mouth while hospitalized but reports this to be improving and she states she has been able to tolerate plain water which she was previously having difficulty doing. Pt states she has taken the phenergan three times since discharge and it has been effective. Pt states she has been taking the Omnicef without difficulty. Pt states she has a follow up appointment with Dr. Eller in two weeks to discuss her biopsy results. Pt denied any further concerns regarding her discharge instructions.
== END 2018-01-08 14:02 | disposition home or self-care (01) | DRG 690 ==
LOC: ED 16:41 → MS3 18:09
PROVIDERS: Family Medicine; Admitting Provider Urology; Emergency Provider Emergency Medicine; Family Provider Family Medicine; PCP Family Medicine; Visit Provider Internal Medicine
DX: N30.00 Acute cystitis without hematuria (principal); G35 Multiple sclerosis; E11.22 Type 2 diabetes mellitus with diabetic chronic kidney disease; N18.3 Chronic kidney disease, stage 3 (moderate); B96.20 Unspecified Escherichia coli [E. coli] as the cause of diseases classified elsewhere; E66.3 Overweight; G43.909 Migraine, unspecified, not intractable, without status migrainosus; Z68.26 Body mass index [BMI] 26.0-26.9, adult
CPT/HCPCS: 36591; 74176; 74177; 80048; 81001; 83036; 83735; 85025; 85027; 87086; 87088; 87186; 97802; 99282; J2185; J7030; Q9967; A4216; J2405; J7799

== ENCOUNTER → 2018-01-28 16:50 | Outpatient (CLI) | payer BC, MEDICARE, SELFPAY ==
[2018-01-04 18:59] VITALS: BMI 26.2
--- OUTSIDE RECORDS SUMMARY | 2018-03-25 23:06 | XMS RPT_ITS ---
:1975 Author Organization [place] Support Name Relationship Address Phone D Unavailable Unavailable Unavailable KYLE PABLO Unavailable [address] + [place] [address] D Unavailable Unavailable Unavailable KYLE PABLO Unavailable [address] + [place] [address] D Unavailable Unavailable Unavailable KYLE PABLO Unavailable [address] + [place] [address] D Unavailable Unavailable Unavailable KYLE PABLO Unavailable [address] + [place] [address] D Unavailable Unavailable Unavailable KYLE PABLO Unavailable [address] + [place] [address] D Unavailable Unavailable Unavailable KYLE PABLO Unavailable [address] + [place] [address] D Unavailable Unavailable Unavailable KYLE PABLO Unavailable [address] + [place] [address] D Unavailable Unavailable Unavailable KYLE PABLO Unavailable [address] + [place] [address] D Unavailable Unavailable Unavailable KYLE PABLO Unavailable [address] + [place] [address] D Unavailable Unavailable Unavailable KYLE PABLO Unavailable [address] + [place] [address] D Unavailable Unavailable Unavailable KYLE PABLO Unavailable [address] + [place] [address] D Unavailable Unavailable Unavailable KYLE PABLO Unavailable [address] + [place] [address] D Unavailable Unavailable Unavailable KYLE PABLO Unavailable [address] + [place] [address] KYLE PABLO Unavailable [address] + [place] [address] KYLE PABLO Unavailable [address] + [place] [address] D Unavailable Unavailable Unavailable KYLE PABLO Unavailable [address] + [place] [id number] KYLE APBLO Unavailable Unavailable + Care Team Providers Name Role Phone Janelle Arita Attending Unavailable Antione Samuels Primary Care Unavailable Janelle Arita Referring Unavailable Juan J, Janelle Magallon Attending Unavailable Janelle Arita Referring Unavailable Daphnie, Apolinar Gentile Attending Unavailable Daphnie, Apolinar Gentile Referring Unavailable Daphnie, Apolinar Gentile Attending Unavailable Daphnie, Apolinar Gentile Referring Unavailable ABARCA, CURTIS O Primary Care Unavailable Daphnie, Apolinar Gentile Attending Unavailable Daphnie, Apolinar Gentile Referring Unavailable ABARCA, CURTIS O Primary Care Unavailable ABARCA, CURTIS O Primary Care Unavailable Daphnie, Dhaval Admitting Unavailable Alise Da Silva Consulting Unavailable Brooke Soria Attending Unavailable Derrick Ledezma Consulting Unavailable Robotham, Oksana Consulting Unavailable Daphnie, Dhaval Admitting Unavailable Alise Da Silva Attending Unavailable ABARCA, CURTIS O Primary Care Unavailable Alise Da Silva Consulting Unavailable Derrick Ledezma Consulting Unavailable Daphnie, Apolinar Gentile Consulting Unavailable Daphnie, Dhaval Admitting Unavailable Brooke Soria Attending Unavailable ABARCA, CURTIS O Primary Care Unavailable Alise Da Silva Consulting Unavailable Derrick Ledezma Unavailable Brooke Soria Consulting Unavailable Daphnie, Dhaval Admitting Unavailable Brooke Soria Attending Unavailable ABARCA, CURTIS O Primary Care Unavailable Alise Da Silva Consulting Unavailable Derrick Ledezma Consulting Unavailable Brooke Soria Consulting Unavailable Daphnie, Dhaval Admitting Unavailable Brooke Soria Attending Unavailable ABARCA, CURTIS O Primary Care Unavailable Alise Da Silva Consulting Unavailable Derrick Ledezma Consulting Unavailable Brooke Soria Consulting Unavailable Daphnie, Dhaval Admitting Unavailable Brooke Soria Attending Unavailable ABARCA, CURTIS O Primary Care Unavailable Alise Da Silva Consulting Unavailable Derrick Ledezma Consulting Unavailable Robotham, Oksana Consulting Unavailable Brooke Soria Consulting Unavailable Daphnie, Dhaval Admitting Unavailable Robotham, Oksana Attending Unavailable ABARCA, CURTIS O Primary Care Unavailable White, Alise Consulting Unavailable Brisa, Derrick Consulting Unavailable Robotham, Oksana Consulting Unavailable Kittoe, Brooke Consulting Unavailable Daphnie, Dhaval Admitting Unavailable Robotham, Oksana Attending Unavailable ABARCA, CURTIS O Primary Care Unavailable White, Alise Consulting Unavailable White, Alise Referring Unavailable Brisa, Derrick Consulting Unavailable Robotham, Oksana Consulting Unavailable Kittoe, Brooke Consulting Unavailable Daphnie, Dhaval Attending Unavailable Daphnie, Dhaval Referring Unavailable ABARCA, CURTIS O Primary Care Unavailable MARK PERRY (ART) Attending Unavailable BROOKE SALTER (JAZMYNE) Attending Unavailable MARLENI ALMONTE Referring Unavailable Garcia, Dr. Dyan Alejandro Attending Unavailable Zelaya, Dr. Dyan Alejandro Admitting Unavailable Jose, Dr. Redd Zee Attending Unavailable Jose, Dr. Redd Zee Admitting Unavailable Klapkathy, Dr. French Elizabeth Attending Unavailable Thaapkathy, Dr. French Elizabeth Admitting Unavailable Abarca, Curtis Attending Unavailable Abarca, Curtis Primary Care Unavailable Abarca, Curtis Attending Unavailable Abarca, Curtis Primary Care Unavailable Abarca, Curtis Admitting Unavailable Abarca, Curtis Attending Unavailable Abarca, Curtis Primary Care Unavailable Abarca, Curtis Admitting Unavailable Hirkala, Rowena Admitting Unavailable Hirkala, Rowena Attending Unavailable Abarca, Curtis Primary Care Unavailable Abarca, Curtis Attending Unavailable Abarca, Curtis Primary Care Unavailable Abarca, Curtis Admitting Unavailable Abarca, Curtis Attending Unavailable Abarca, Curtis Primary Care Unavailable Hirkala, Rowena Admitting Unavailable Hirkala, Rowena Attending Unavailable Abarca, Curtis Primary Care Unavailable Antione Sprague R Attending Unavailable Abarca, Curtis Primary Care Unavailable DarcieAntione R Attending Unavailable Abarca, Curtis Primary Care Unavailable Abarca, Curtis Attending Unavailable Abarca, Curtis Primary Care Unavailable DarcieAntione R Admitting Unavailable DarcieAntione domingo R Attending Unavailable Abarca, Curtis Primary Care Unavailable Antione Sprague R Attending Unavailable Abarca, Curtis Primary Care Unavailable Antione Sprague R Attending Unavailable Abarca, Curtis Primary Care Unavailable Antione Sprague R Admitting Unavailable Abarca, Curtis Primary Care Unavailable Wade Heart Admitting Unavailable Rings Wade Attending Unavailable Curtis Abarca Primary Care Unavailable Janelle Arita Admitting Unavailable Janelle Arita Attending Unavailable Rowena Roth Admitting Unavailable Rowena Roth Attending Unavailable Curtis Abarca Primary Care Unavailable PROBLEMS PROBLEMS DATE TYPE CONDITION / CODE ATTENDING STATUS SOURCE 02/12/2018 Unknown R82.998 - Other Daphnie, Apolinar Active [place] abnormal findings [facility] Community in urine / Hospital R82.998(ICD-10) Repository 01/01/2018 Unknown R93.41 - Abnormal Daphnie, Apolinra Active [place] radiologic [facility] findings on Hospital diagnostic Repository imaging of renal pelvis, ureter, or bladder / R93.41(ICD-10) 12/18/2017 Unknown N39.0 - Urinary Daphnie, Apolinar Active [place] tract infection, [facility] site not Hospital specified / Repository N39.0(ICD-10) 12/18/2017 Unknown R31.9 - Daphnie, Apolinar Active [place] Hematuria, [facility] unspecified / Hospital R31.9(ICD-10) Repository 06/02/2017 Unknown R82.99 - Other Juan J, Janelle Active [place] abnormal findings Community in urine / Hospital R82.99(ICD-10) Repository PROCEDURES PROCEDURES No Procedure Records FoundRESULTS RESULTS Observed: 01/28/2018 Status: F Source: [place] CULTURE, URINE 1:45 PM [facility] Urine Culture ORGANISM 1: Presumptive E. coli Raymond Count >100,000 Presumptive E. coli: REACTION Amoxacillin/Clavulanic Acid $ 4 S Ampicillin $ >=32 R Ampicillin/Sulbactam $ 16 I Cefazolin $ <=4 S Cefepime $ <=1 S Ceftriaxone $ <=1 S Ciprofloxacin $ <=0.25 S ESBL - Ertapenim $$$ <=0.5 S Gentamicin $ >=16 R Imipenem *NF <=0.25 S Levofloxacin $ <=0.12 S Nitrofurantoin $ <=16 S Piperacillin/Tazobactam $$ <=4 S Tobramycin $ 4 S Trimethoprim/Sulfametho $ >=320 R (NF) indicates non-formulary drug at [facility]. Approval by Infectious Disease Specialist required before non-formulary drugs may be ordered and/or dispensed. Performed By: #### [id number] #### [facility] [address] [place], [address] OPERATIVE REPORT Observed: 01/26/2018 Status: F Source: [place] 10:46 PM [facility] Medical Records Department [address] [place] [address] Operative Report 01/01/18 1518 MR#: [id number] Acct: [id number] Name: OANH PABLO Rep #: [id number] : 1975 42 From: Apolinar Eller MD PCP: Curtis Abarca MD Status: [facility] Location: [facility] ADDENDUM by Apolinar Eller MD on 01/26/18 at 2246 Code Visit lesion occupied the left lateral wall of the bladder, extending from the floor of the bladder up the dome. 01/26/18 2246 <Electronically signed by Apolinar Eller MD> Date Apolinar Eller MD cc: Apolinar Eller MD; Curtis Abarca MD * Signed Report of Operation Date of Procedure: 01/01/18 Pre-Operative Diagnosis: Gross hematuria and bladder lesion erythema on the left lateral wall the bladder Post-Operative Diagnosis: Same Surgery/Procedure Performed:: Transurethral resection of this bladder lesion and rollerball cauterization. Description of Surgical Findings:: 42-year-old female taken back to the operating room at the smooth induction of general anesthesia she was placed supine on the table the urethra vaginal area prepped and draped in usual sterile fashion on bimanual exam she had no palpable hard masses or nodules or abnormalities ureter was nice and soft the bladder is nice and soft, I then went to the bladder with a 24 Lithuanian noncontinuous flow cystoscope inspected the bladder trigone was normal she did have cystitis cystica throughout the bladder with raised cystic lesions throughout the bladder but in the left lateral wall the bladder she had a very red dark red at the erythematous lesion somewhat concerning for CIS this was seen in the office on cystoscopy. I then switched over to the resectoscope resected this reddish lesion tissue was sent off as a specimen and then used a rollerball to then rollerball the reddish lesion on the lateral side of the bladder. After this was completed there was no bleeding the bladder was drained no perforation of the bladder. Left no catheter and the patient and patient's anesthetic was reversed taken back to PACU good condition she will follow-up in the office about 2 weeks to review the results of the tissue report. Type of Anesthesia:: General Specimen's removed: tissue from bladder Estimated Blood Loss (mL): minimal. - Admit VTE Documentation VTE Present on Admission: No VTE Mechan Device Prophylaxis: SCD's VTE Pharm Prophylaxis ordered?: No 01/01/18 1521 <Electronically signed by Apolinar Eller MD> Date Apolinar Eller MD CC: Apolinar Eller MD; Curtis Abarca MD Signed DISCHARGE SUMMARY Observed: 01/11/2018 Status: F Source: [place] 10:29 AM [facility] Medical Records Department [address] [place] [address] Discharge Summary 01/11/18 1025 MR#: [id number] Acct: [id number] Name: OANH PABLO Rep #: [id number] : 1975 42 From: Apolinar Eller MD PCP: Curtis Abarca MD Status: DIS IN Y Location: MS3 [id number] Discharge Date and Diagnosis Date of Admission: 01/05/18 Date of Discharge: 01/08/18 - Secondary Discharge Diagnosis Chronic Problems Overweight (BMI 25.0-29.9) (Chronic) Migraines (Chronic) Type 2 diabetes mellitus (Chronic) Multiple sclerosis (Chronic) Hospital Course and Treatment Operations: None Procedures: None Summary of Care Provided: The patient is a 42 year old female s/p TURBT of the bladder for concer for cancer, biopsy was negative admitted for resistant UTI with Ecol, has many drug allergies, admitted for UTI post op, was sent home with bactrim and Ecoli was resistant to bactrim, placed on IV meropenem with out any problems, vomiting stopped, seen by Urology and general surgery who ruled out fistula. finally on day #3 was discharge with Omnicef per ID recommendations. recommended follow up with NUTTER UP and Urology. On discharge was keeping liquids down no vomiting some nausea problems from antibiotics given medication to treat nausea. - Physical Exam General: Alert, Oriented x3, Cooperative HEENT: Atraumatic, PERRLA, EOMI, Normocephalic Neck: Supple, No JVD, Negative Carotid Bruits Lungs: Clear to auscultation, Normal air movement Cardiovascular: Regular rate, No murmurs Abdomen: Bowel Sounds Present, Soft, Non Tender Extremities: No edema, Capillary Refill Less than 3 Seconds Skin: No rashes, No breakdown Musculoskeletal: No Tenderness to Palpation of Joints or Extremities Neurological: Cranial nerves II-XII grossly intact Psych/Mental Status: Normal Affect, Appropriate Vital Signs Temp Pulse Resp BP Pulse Ox 98.8 F 77 16 103/76 96 01/08/18 14:05 01/08/18 14:05 01/08/18 14:05 01/08/18 14:05 01/08/18 14:05 Oxygen Delivery Method Room Air Weight: 75.75 kg Body Mass Index (BMI) 26.2 Discharge Diet: Light diet - advance as tolerated Discharge Activity: Return to Normal Activity Call your doctor if you observe: Fever of 101 or Higher Suture Line Care: Avoid Pulling/Pushing, Avoid Pinching/Bending Home Medications: Medications to take at Discharge Baclofen [Lioresal] 10 mg PO QHS 04/15/16 Cholecalciferol (Vitamin D3) [Vitamin D3] 5,000 unit PO DAILY 04/15/16 Lisinopril [Zestril] 5 mg PO QODAY 04/15/16 Lorazepam [Ativan] 1 mg PO QHS 04/15/16 Lysine [l-Lysine] 1,000 mg PO DAILY 04/15/16 Mirabegron [Myrbetriq] 50 mg PO DAILY 04/15/16 Solifenacin Succinate [Vesicare] 10 mg PO QHS 04/15/16 Topiramate [Topamax] 200 mg PO QHS 04/15/16 Coconut Oil 2,000 mg PO DAILY 12/28/17 Cranberry Conc/Ascorbic Acid [Cranberry 12,600 mg Softgel] 1 each PO DAILY 12/28/17 Herbal Drugs [Colon Herbal Cleanser] 2 each PO QHS 12/28/17 Tizanidine HCl [Zanaflex] 2 mg PO QHS 12/28/17 Phenazopyridine HCl [Pyridium] 200 mg PO TID #20 tab 01/01/18 Ascorbic Acid [C-1000] 1,000 mg PO QHS 01/04/18 Ondansetron [Zofran Odt] 4 mg PO TID PRN 01/04/18 Cefdinir [Omnicef [equiv]] 300 mg PO Q12 #8 capsule 01/08/18 Ibuprofen 600 mg PO 4X/DAY #20 tablet 01/08/18 proMETHazine tablet [Phenergan tablet] 25 mg PO Q6H PRN PRN 5 Days #14 tablet 01/08/18 Following Prescrptions Were Given to Patient: proMETHazine tablet [Phenergan tablet] 25 mg PO Q6H PRN PRN 5 Days #14 tablet PRN Reason: Nausea Cefdinir [Omnicef [equiv]] 300 mg PO Q12 #8 capsule Ibuprofen 600 mg PO 4X/DAY #20 tablet Primary Care Physician: Curtis Abarca MD [Primary Care Provider] - Please Follow Up With: Apolinar Eller MD When: in 2 weeks, please call to make an appointment. Medical Necessity - Tobacco Use Smoking Status: Never smoker Tobacco Use: Non-smoker Meaningful Use Info Meaningful Use Diagnoses (Choose all that apply): None applicable 01/11/18 1029 <Electronically signed by Apolinar Eller MD> Date Apolinar Eller MD Cosigner Signature (if applicable): Date CC: Apolinar Eller MD; Curtis Abarca MD Signed CONSULTATION Observed: 01/08/2018 Status: F Source: [place] 11:08 AM [facility] Medical Records Department [address] [place] [address] Consultation 01/07/18 1136 MR#: [id number] Acct: [id number] Name: OANH PABLO Rep #: [id number] : 1975 42 From: Oksana Lopez MD PCP: Curtis Abarca MD Status: ADM IN Y Location: MS3 [id number] Reason for Consult Date of Consultation: 01/07/18 History of Present Illness: The patient is a 42 year old F admitted due to abdominal pain recurrent cystitis. Patient underwent bladder biopsy on 01/01/18. Having nausea and vomiting over the weekend along with abdominal pain. Patient states her lower abdominal pain is about the same from prior to the biopsy and continues to still be a 10+/10. She has been tolerating some water and tolerated some oatmeal today. She had a CT scan on 12/24/17 which showed no evidence of any colon thickening or colo-vesicular fistula. She had a repeat CT on 01/05/18 which showed some air in the bladder also thickened lateral wall which is where she had her biopsy and air is likely from her cystoscopy. Also states that the colon may be a little thickened in the sigmoid however this is also decompressed. She states she has had a colonoscopy about 5 years ago she thinks by someone at the [facility] in [place]. Patient has had urine cultures for E. coli multiple times this year. Past Medical History Past Medical History (Chronic Problems): Chronic Problems Overweight (BMI 25.0-29.9) (Chronic) Migraines (Chronic) Type 2 diabetes mellitus (Chronic) Multiple sclerosis (Chronic) Allergies adhesive tape Allergy (Verified 01/04/18 15:53) Rash aspirin [ASA] Allergy (Verified 01/04/18 15:53) Unknown cefpodoxime Allergy (Verified 01/04/18 15:53) Rash ciprofloxacin Allergy (Verified 01/04/18 15:53) Hives diclofenac Allergy (Verified 01/04/18 15:53) Rash gabapentin [From Neurontin] Allergy (Verified 01/04/18 15:53) Unknown latex Allergy (Verified 01/04/18 15:53) Rash levofloxacin [From Levaquin] Allergy (Verified 01/04/18 15:53) redness,rash nitrofurantoin Allergy (Verified 01/04/18 15:53) Unknown Penicillins Allergy (Verified 01/04/18 15:53) Anaphylaxis prednisone Allergy (Verified 01/04/18 15:53) Unknown pregabalin Allergy (Verified 01/04/18 15:53) Unknown cephalexin [From Keflex] Adverse Reaction (Verified 01/04/18 17:55) Upset Stomach norfloxacin [From Noroxin] Adverse Reaction (Verified 01/04/18 15:53) Upset Stomach phenytoin [From Dilantin] Adverse Reaction (Verified 01/04/18 15:53) loss of balance alvogen Allergy (Uncoded 01/04/18 15:53) Rash Home Medications: Ambulatory Orders Medication Instructions Recorded Baclofen [Lioresal] 10 mg PO QHS 04/15/16 Surgical History: noncontributory, - - x2, bladder sling surgery with mesh, hysterectomy, cholecystectomy, tonsillectomy, hammertoe surgery bilaterally, recent bladder biopsy. Psychiatric History: Anxiety NUTTER UP History: No pertinent NUTTER UP history Lives: Spouse/ Significant Other Smoking Status: Never smoker Tobacco Use: Non-smoker Alcohol: None Drugs: None - *Family History Maternal History Items: - - Patient notes that her mother is healthy and denies any history of heart disease, diabetes or cancer. Paternal History Items: Cancer - Bladder cancer, COPD, Diabetes, Heart Disease Offspring History Items: - - mental health Review of Systems Constitutional: Denies: Fever Eyes: Reports: Vision Change - Occasional seeing a dot in the left eye which will resolve on its own. Denies: Blurred vision HEENT: Denies: Difficulty Swallowing Cardiovascular: Denies: Chest Pain Respiratory: Denies: Shortness of Breath Gastrointestinal: Reports: Abdominal Pain Genitourinary: Reports: Dysuria Musculoskeletal: Denies: Joint Pain Skin: Denies: Rash Neurological: Reports: Numbness - In her fingers and feet due to MS Psychiatric: Reports: Anxiety - Controlled with medication. Denies: Depression Hematologic/ Lymphatic: Reports: Easy Bruising. Denies: Easy Bleeding - Physical Exam General: Alert, Oriented x3, Cooperative, No apparent distress HEENT: Atraumatic Neck: Supple Lungs: Normal air movement Cardiovascular: Regular rate Abdomen: Soft, Non-Distended, Passing Flatus, Tender - Bilateral lower quadrants and suprapubic, no peritoneal signs Extremities: No clubbing, No cyanosis, No edema Skin: No rashes Neurological: Cranial nerves II-XII grossly intact Psych/Mental Status: Normal Affect Vital Signs Temp Pulse Resp BP Pulse Ox 98.3 F 72 18 93/62 96 01/07/18 10:00 01/07/18 10:00 01/07/18 10:00 01/07/18 10:00 01/07/18 10:00 Oxygen Delivery Method Room Air Weight: 167 lb 0.002 oz Body Mass Index (BMI) 26.2 Intake and Output for Last 24 Hours Intake Total 2361 / 2361 2848 / 2848 1196 / 1196 Output Total 1160 / 1160 1400 / 1400 600 / 600 Balance 1201 / 1201 1448 / 1448 596 / 596 Microbiology Past 72 Hours 01/04/18 16:55 Urine Culture - Final Urine, Clean Catch Presumptive E. coli Laboratory Tests Past 24 Hrs Sodium 143 Potassium 3.7 Chloride 111 H Carbon Dioxide 28.0 Anion Gap 4 L Assessment/Plan All Active Problems Pyelonephritis (Acute) UTI (urinary tract infection) (Acute) 42-year-old female with recurrent cystitis, rule out colovesical fistula 1. Due to patient's chronic course of cystitis with E. coli and having a fairly normal CT in December 24 which showed a normal colon which was distended with stool and a plane between the bladder with no evidence of a colovesicular fistula do not think the patient likely has a colovesicular fistula. CAT scan from 01/05/18 did show collapsed sigmoid which is difficult to tell for any thickening and the bladder wall thickening was more on the lateral aspect where she had a cystoscopy which is also a reason for the air in the bladder. But discussed with the patient and Dr. Ledezma that we can check CT with rectal contrast only to further evaluate this area. Per the patient and her pain has been ongoing and relatively the same since prior to the biopsy as it is post biopsy. Oksana Lopez M.D. Pager: [phone] [facility] [address] [place] [address], [facility]patient [facility], [address] [place] [address] Office: [phone] Code Visit Inpatient E AND M: 14102 Init Hosp L2 01/08/18 1108 <Electronically signed by Oksana Lopez MD> Date Oksana Lopez MD Cosigner Signature (if applicable): Date CC: Alise Da Silva; Derrick Ledezma MD; Curtis Abarca MD; Oksana Lopez MD Signed DISCHARGE INSTRUCTION Observed: 01/08/2018 Status: F Source: [place] 9:23 AM [facility] Medical Records Department [address] [place] [address] Instructions for Home/Discharge Instructions 01/08/18921 MR#: [id number] Acct: [id number] Name: OANH PABLO Rep #: [id number] : 1975 42 From: Apolinar Eller MD PCP: Curtis Abarca MD Status: ADM IN Discharge Diet: Light diet - advance as tolerated Discharge Activity: Return to Normal Activity Call your doctor if you observe: Fever of 101 or Higher Suture Line Care: Avoid Pulling/Pushing, Avoid Pinching/Bending Allergies/Adverse Reactions: Allergies adhesive tape Allergy (Verified 01/04/18 15:53) Rash aspirin [ASA] Allergy (Verified 01/04/18 15:53) Unknown cefpodoxime Allergy (Verified 01/04/18 15:53) Rash ciprofloxacin Allergy (Verified 01/04/18 15:53) Hives diclofenac Allergy (Verified 01/04/18 15:53) Rash gabapentin [From Neurontin] Allergy (Verified 01/04/18 15:53) Unknown latex Allergy (Verified 01/04/18 15:53) Rash levofloxacin [From Levaquin] Allergy (Verified 01/04/18 15:53) redness,rash nitrofurantoin Allergy (Verified 01/04/18 15:53) Unknown Penicillins Allergy (Verified 01/04/18 15:53) Anaphylaxis prednisone Allergy (Verified 01/04/18 15:53) Unknown pregabalin Allergy (Verified 01/04/18 15:53) Unknown cephalexin [From Keflex] Adverse Reaction (Verified 01/04/18 17:55) Upset Stomach norfloxacin [From Noroxin] Adverse Reaction (Verified 01/04/18 15:53) Upset Stomach phenytoin [From Dilantin] Adverse Reaction (Verified 01/04/18 15:53) loss of balance alvogen Allergy (Uncoded 01/04/18 15:53) Rash Medications to take at Discharge Baclofen [Lioresal] 10 mg PO QHS 04/15/16 Cholecalciferol (Vitamin D3) [Vitamin D3] 5,000 unit PO DAILY 04/15/16 Lisinopril [Zestril] 5 mg PO QODAY 04/15/16 Lorazepam [Ativan] 1 mg PO QHS 04/15/16 Lysine [l-Lysine] 1,000 mg PO DAILY 04/15/16 Mirabegron [Myrbetriq] 50 mg PO DAILY 04/15/16 Solifenacin Succinate [Vesicare] 10 mg PO QHS 04/15/16 Topiramate [Topamax] 200 mg PO QHS 04/15/16 Coconut Oil 2,000 mg PO DAILY 12/28/17 Cranberry Conc/Ascorbic Acid [Cranberry 12,600 mg Softgel] 1 each PO DAILY 12/28/17 Herbal Drugs [Colon Herbal Cleanser] 2 each PO QHS 12/28/17 Tizanidine HCl [Zanaflex] 2 mg PO QHS 12/28/17 Phenazopyridine HCl [Pyridium] 200 mg PO TID #20 tab 01/01/18 Ascorbic Acid [C-1000] 1,000 mg PO QHS 01/04/18 Ondansetron [Zofran Odt] 4 mg PO TID PRN 01/04/18 Cephalexin [Keflex] 500 mg PO Q8 #10 capsule 01/08/18 Ibuprofen 600 mg PO 4X/DAY #20 tablet 01/08/18 proMETHazine tablet [Phenergan tablet] 25 mg PO Q6H PRN PRN 5 Days #14 tablet 01/08/18 The following prescriptions were given: proMETHazine tablet [Phenergan tablet] 25 mg PO Q6H PRN PRN 5 Days #14 tablet PRN Reason: Nausea Cephalexin [Keflex] 500 mg PO Q8 #10 capsule Ibuprofen 600 mg PO 4X/DAY #20 tablet Primary Care Physician: Curtis Abarca MD [Primary Care Provider] - Test Results: Test results from this visit will be discussed in further detail at your follow-up appointment, if applicable. Please Follow Up With: Apolinar Eller MD When: in 2 weeks, please call to make an appointment. 01/08/18922 <Electronically signed by Apolinar Eller MD> Date Apolinar Eller MD CC: Alise Da Silva; Derrick Ledezma MD; Curtis Abarca MD; Oksana Lopez MD CBC-COMPLETE BLOOD CNT Collected: 01/08/2018 Status: F Source: [place] NO DIFF 6:50 AM [facility] Order Comment: SPECIMEN OBTAINED FROM LINE DRAW TYPE CODE TESTS RESULT OUT OF RANGE REFERENCE UNITS LAB L100.1000 4.4-11.0 K/mm3 Low WBC 2.0 LAB L100.1200 4.2-5.4 M/mm3 Low RBC 3.17 LAB L100.1300 12.0-15.0 g/dl Low HGB 9.6 LAB L100.1400 37-47 % Low HCT 29.6 LAB L100.1500 81-99 fL Normal MCV 93.4 LAB L100.1600 27.0-32.0 pg Normal MCH 30.3 LAB L100.1700 32-36 g/gl Normal MCHC 32.4 LAB L100.1810 11.6-14.6 % Normal RDW CV 12.1 LAB L100.1820 35.1-43.9 fl Normal RDW SD 39.8 LAB L100.1900 150-450 K/mm3 Normal PLT 208 LAB L100.2000 6.2-12.0 fl Normal MPV 9.6 Performed By: #### L100.0500 #### [facility] [address], [address] BASIC METABOLIC Collected: 01/08/2018 Status: F Source: [place] PROFILE (BMP) 6:50 AM [facility] Order Comment: SPECIMEN OBTAINED FROM LINE DRAW TYPE CODE TESTS RESULT OUT OF RANGE REFERENCE UNITS LAB L501.0100 74-106 mg/dL Normal GLU 80 Result Comment: Please note revised GLUCOSE reference range effective 2017. LAB L501.1000 7-18 mg/dL Low BUN 6 LAB L501.1100 0.55-1.02 mg/dL Normal CREAT,SERUM 0.94 Result Comment: The validity of the calculated GFR AND GFRAA in patients over 70 years has not been determined. Clinical correlation is essential. LAB L501.1110 >60 mL/min Normal EST GFR 69 Result Comment: Non- GFR Calc LAB L501.1115 >60 mL/min Normal EST GFR - AA 83 Result Comment: GFR Calc LAB L501.1255 ml/min Normal Estimated CRCL 74.27 LAB L501.1300 10-20 RATIO Low BUN/CRE 6.4 LAB L501.2200 8.5-10 mg/dL Low .1 CA 8.2 LAB L501.5300 136-14 mmol/L Normal 5 NA 144 LAB L501.5600 3.5-5. mmol/L Normal 1 K 3.7 LAB L501.5900 98-107 mmol/L High CL 110 LAB L501.6100 21.0-3 mmol/L Normal 2.0 CO2 30.0 LAB L501.6200 5-15 Low GAP 4 Performed By: #### L500.2500 #### [facility] [address]. [place], [place], [address] ABDOMEN/PELVIS WITHOUT Observed: 01/07/2018 Status: F Source: [place] CONT 11:46 AM [facility] Imaging Services [address] [place] [address] Abdomen/Pelvis without Cont MR#: [id number] Acct: [id number] Name: OANH PABLO Rep #: [id number] : 1975 F 42 From: Skip Aiken MD PCP: Curtis Abarca MD Status: ADM IN Study: Abdomen/Pelvis without Cont Date of Exam: 01/07/18 Exam# [id number] Ordering Dr: Oksana Lopez MD STUDY: CT ABDOMEN AND PELVIS WITHOUT CONTRAST REASON FOR EXAM: Female, 42 years old. Pain. Cystitis. Question of colovesicular fistula. Bladder surgery. RADIATION DOSAGE (If Supplied By Facility): CTDIvol = ( 12.55 ) mGy, DLP = ( 646.02 ) mGycm TECHNIQUE: Transaxial images were obtained from the dome of the diaphragm to the symphysis pubis with oral contrast, and without intravenous contrast. Sagittal and coronal images were reconstructed. Individualized dose optimization techniques were used for this CT. COMPARISON: 01/05/2018, 12/24/2017. FINDINGS: Limited views through the lower chest show patchy areas of subsegmental atelectasis in both lung bases left worse than right, and slightly worse than prior study. Normal liver. There is non-visualization of the gallbladder, which may be secondary to either contraction or a prior cholecystectomy. Normal spleen. Normal pancreas. Normal bilateral adrenal glands. Normal right kidney. Stable appearance of the left kidney with extensive scarring, atrophy, and parenchymal stones. Rectal contrast was given. Grossly normal appearance of the stomach. No dilated loops of small bowel or evidence for small bowel obstruction. However, small bowel is not opacified and cannot exclude segments of small bowel wall thickening. Large bowel is adequately opacified. It is normal caliber. There are no definite segments of bowel wall thickening. Markedly improved appearance of the sigmoid since previous exam. Currently, no definite segments of sigmoid wall thickening or diverticulitis. Also currently the sigmoid is seen to be significantly well from an inflammatory process involving the left side of the bladder. Bladder is emptied by a Arceo catheter but nevertheless appears to have an irregularly thickened wall and prominent perivesicular stranding along the left side. This may be inflammatory or neoplastic. No contrast has entered the bladder indicating no definite colovesical fistula. However, there is a small amount contrast seen in the vagina, suggesting the possibility enterovaginal fistula. Pelvic examination and direct visualization is recommended. Increased density seen in the presacral and ischiorectal fat planes, similar to prior study. Normal abdominal wall. Normal osseous structures. CT/Abdomen/Pelvis without Cont IMPRESSION: Current examination shows no definite colovesical fistula. In fact, there is currently no evidence for a significant infiltrate process of the sigmoid. Continued abnormal appearance of the bladder especially along the left side where there may be inflammatory or neoplastic process. Small amount of contrast in the vagina which could be from enterovaginal fistula. Electronically Signed: Skip Aiken MD at 17:18 EST , Service support , CC: Curtis Abarca MD; Oksana Lopez MD Data Processing Mechanic: Signed BASIC METABOLIC Collected: 01/07/2018 Status: F Source: [place] PROFILE (BMP) 9:03 AM [facility] TYPE CODE TESTS RESULT OUT OF RANGE REFERENCE UNITS LAB L501.0100 74-106 mg/dL Normal GLU 101 Result Comment: Fasting Glucose result from 100 to 125 mg/dL suggests IMPAIRED HOMEOSTASIS per A.D.A. criteria. Please note revised GLUCOSE reference range effective 2017. LAB L501.1000 7-18 mg/dL Normal BUN 8 LAB L501.1100 0.55-1.02 mg/dL Normal CREAT,SERUM 1.02 Result Comment: The validity of the calculated GFR AND GFRAA in patients over 70 years has not been determined. Clinical correlation is essential. LAB L501.1110 >60 mL/min Normal EST GFR 63 Result Comment: Non- GFR Calc LAB L501.1115 >60 mL/min Normal EST GFR - AA 76 Result Comment: GFR Calc LAB L501.1255 ml/min Normal Estimated CRCL 68.44 LAB L501.1300 10-20 RATIO Low BUN/CRE 7.8 LAB L501.2200 8.5-10 mg/dL Low .1 CA 7.9 LAB L501.5300 136-14 mmol/L Normal 5 NA 143 LAB L501.5600 3.5-5. mmol/L Normal 1 K 3.7 LAB L501.5900 98-107 mmol/L High CL 111 LAB L501.6100 21.0-3 mmol/L Normal 2.0 CO2 28.0 LAB L501.6200 5-15 Low GAP 4 Performed By: #### L500.2500, L501.5200 #### [facility] [address] [place], [address] MAGNESIUM Collected: 01/07/2018 Status: F Source: [place] 9:03 AM [facility] TYPE CODE TESTS RESULT OUT OF RANGE REFERENCE UNITS LAB L501.5200 1.6-2.6 mg/dL Normal MG 1.8 Performed By: #### L500.2500, L501.5200 #### [facility] [address] [place], [address] HISTORY AND PHYSICAL Observed: 01/05/2018 Status: F Source: [place] EXAM 4:20 PM [facility] Medical Records Department [address] [place] [address] History and Physical 01/05/18 0648 MR#: [id number] Acct: [id number] Name: OANH PABLO Rep #: [id number] : 1975 42 From: Apolinar Eller MD PCP: Curtis Abarca MD Status: ADM IN Y Location: [place]3 SI101-6 ADDENDUM by Apolinar Eller MD on 01/05/[address] at [address] scan reviewed, no fistual but has some inflammation and thinning of bladde wall will place arceo to drain and let bladder heal. spoke to the nurse to place arceo. 01/05/18 1620 <Electronically signed by Apolinar Eller MD> Date Apolinar Eller MD cc: Apolinar Eller MD; Curtis Abarca MD * Signed History of Present Illness Date of Admission: 01/05/18 Chief Complaint: Not feeling well and nausea can keep food down dehydration The patient is a 42 year old female who underwent a cystoscopy bladder biopsy and fulguration of the lesion in the bladder she has a history of recurrent very resistant bladder infections. She was treated preoperatively with appropriate course of antibiotics for her urinary tract infection she was given preoperative antibiotics for the procedure. She underwent to the procedure last week uneventfully but called and went to the emergency room with nausea vomiting. She is admitted for supposed UTI we will see what the cultures reveal. Urine test was positive for blood and nitrite and leukocytes but she did had recent bladder surgery sometimes this could be positive as a result of surgery, will await cultures nevertheless at this point will admit the patient because she is not tolerating food and liquids and also has nausea and vomiting. Other potential etiologies of her admission could just be intolerance nausea vomiting because of bladder pain discomfort pain medicine and recent procedure. Past Medical History Past Medical History (Chronic Problems): Chronic Problems Overweight (BMI 25.0-29.9) (Chronic) Migraines (Chronic) Type 2 diabetes mellitus (Chronic) Multiple sclerosis (Chronic) Allergies adhesive tape Allergy (Verified 01/04/18 15:53) Rash aspirin [ASA] Allergy (Verified 01/04/18 15:53) Unknown cefpodoxime Allergy (Verified 01/04/18 15:53) Rash ciprofloxacin Allergy (Verified 01/04/18 15:53) Hives diclofenac Allergy (Verified 01/04/18 15:53) Rash gabapentin [From Neurontin] Allergy (Verified 01/04/18 15:53) Unknown latex Allergy (Verified 01/04/18 15:53) Rash levofloxacin [From Levaquin] Allergy (Verified 01/04/18 15:53) redness,rash nitrofurantoin Allergy (Verified 01/04/18 15:53) Unknown Penicillins Allergy (Verified 01/04/18 15:53) Anaphylaxis prednisone Allergy (Verified 01/04/18 15:53) Unknown pregabalin Allergy (Verified 01/04/18 15:53) Unknown cephalexin [From Keflex] Adverse Reaction (Verified 01/04/18 17:55) Upset Stomach norfloxacin [From Noroxin] Adverse Reaction (Verified 01/04/18 15:53) Upset Stomach phenytoin [From Dilantin] Adverse Reaction (Verified 01/04/18 15:53) loss of balance alvogen Allergy (Uncoded 01/04/18 15:53) Rash Home Medications: Ambulatory Orders Medication Instructions Recorded Baclofen [Lioresal] 10 mg PO QHS 04/15/16 Cholecalciferol (Vitamin D3) 5,000 unit PO DAILY 04/15/16 [Vitamin D3] Surgical History: noncontributory, - - x2, bladder sling surgery with mesh, hysterectomy, cholecystectomy, tonsillectomy, hammertoe surgery bilaterally, recent bladder biopsy. Psychiatric History: Anxiety NUTTER UP History: No pertinent NUTTER UP history Lives: Spouse/ Significant Other Smoking Status: Never smoker Tobacco Use: Non-smoker Alcohol: None Drugs: None - *Family History Maternal History Items: - - Patient notes that her mother is healthy and denies any history of heart disease, diabetes or cancer. Paternal History Items: Cancer - Bladder cancer, COPD, Diabetes, Heart Disease Offspring History Items: - - mental health Review of Systems Constitutional: Denies: Chills, Fever, Weight Change HEENT: Denies: Head Aches, Sinus Congestion, Sinus Drainage Cardiovascular: Denies: Chest Pain, Palpitations Respiratory: Denies: Cough, Shortness of breath at rest, Sputum production Gastrointestinal: Reports: Abdominal Pain, Nausea, Vomiting Genitourinary: Reports: Dysuria Musculoskeletal: Denies: Joint Pain, Joint Tenderness Skin: Denies: Rash, Wounds Neurological: Denies: Numbness, Tingling, Focal weakness Psychiatric: Denies: Anxiety, Depression, Homicidal Ideations, Suicidal Ideations Hematologic/ Lymphatic: Denies: Easy Bruising, Easy Bleeding VTE Information - Inpt Only VTE Present on Admission: No VTE Mechan Device Prophylaxis: SCD's - Physical Exam General: Alert, Oriented x3, Cooperative HEENT: Atraumatic, PERRLA, EOMI, Normocephalic Neck: Supple, No JVD, Negative Carotid Bruits Lungs: Clear to auscultation, Normal air movement Cardiovascular: Regular rate, No murmurs Abdomen: Bowel Sounds Present, Soft, Non Tender Extremities: No edema, Capillary Refill Less than 3 Seconds Skin: No rashes, No breakdown Musculoskeletal: No Tenderness to Palpation of Joints or Extremities Neurological: Cranial nerves II-XII grossly intact Psych/Mental Status: Normal Affect, Appropriate Vital Signs Temp Pulse Resp BP Pulse Ox 98.8 F 88 18 99/51 L 97 01/05/18 01:42 01/05/18 01:42 01/05/18 01:42 01/05/18 01:42 01/05/18 01:42 Oxygen Delivery Method Room Air Weight: 75.75 kg Body Mass Index (BMI) 26.2 Intake and Output for Last 24 Hours Intake Total 1645 / 1645 Output Total 176 / 176 480 / 480 Balance -176 / -176 1165 / 1165 Laboratory Tests Past 24 Hrs WBC 4.8 WBC 4.0 L RBC 3.43 L Hgb 10.2 L Hct 31.8 L MCV 92.7 MCH 29.7 MCHC 32.1 Assessment/Plan All Active Problems Pyelonephritis (Acute) UTI (urinary tract infection) (Acute) Admit to the hospital for a bladder infection, nausea vomiting, dehydration, will obtain blood work. Her white blood count was low. Urine culture is pending, she is been given meropenem as an antibiotic. Unfortunately she also has quite a long list of drug intolerances not really sure if these are all true allergic reactions often she will call complaining that not feeling well etc. when she takes an antibiotic so she is listed quite a long list of antibiotics that she cannot take but it is hard to tell which ones are true antibiotics true reactions may need to have her see the cardiac exercise specialist to see which antibiotic she could use in the future as this is limiting her ability to treat infection severely. I am also to have infectious disease see her as a consultation to help with antibiotic selection and treatment of possible UTI. 01/05/18 0652 <Electronically signed by Apolinar Eller MD> Date Apolinar Eller MD Cosign Signature: Date (if applicable) CC: Apolinar Eller MD; Curtis Abarca MD Signed CONSULTATION Observed: 01/05/2018 Status: F Source: [place] 10:47 AM [facility] Medical Records Department [address] [place] [address] Consultation 01/05/18 1041 MR#: [id number] Acct: [id number] Name: OANH PABLO Leila Rep #: [id number] : 1975 42 From: Derrick Ledezma MD PCP: Curtis Abarca MD Status: ADM IN Y Location: [place]3 [id number] Problem List (1) UTI (urinary tract infection) Status: Acute Qualifiers: Urinary tract infection type: acute pyelonephritis Qualified Code(s): N10 - Acute pyelonephritis Reason for Consult: uti Consulted by: Dr. Eller History of Present Illness: The patient is a 42 year old F with MS, recurrent uti, and CKD who presented with several days of severe stabbing/aching suprapubic pain associated with n/v. She has been on multiple recent courses of abx including bactrim. Ucx with ecoli-like recently. Did not have improvement with abx, so had CT done 12/24 and then bladder biopsy done 01/[address] Eller. Since procedure developed severe pain and not feeling well. No fever or chills. Did have burning with urination, no blood present. Came to ED, started on meropenem, not feeling any better. Full ROS performed and neg except as noted above. - Medical History Past Medical History (Chronic Problems): Chronic Problems Overweight (BMI 25.0-29.9) (Chronic) Migraines (Chronic) Type 2 diabetes mellitus (Chronic) Multiple sclerosis (Chronic) Allergies/Adverse Reactions: Allergies adhesive tape Allergy (Verified 01/04/18 15:53) Rash aspirin [ASA] Allergy (Verified 01/04/18 15:53) Unknown cefpodoxime Allergy (Verified 01/04/18 15:53) Rash ciprofloxacin Allergy (Verified 01/04/18 15:53) Hives diclofenac Allergy (Verified 01/04/18 15:53) Rash gabapentin [From Neurontin] Allergy (Verified 01/04/18 15:53) Unknown latex Allergy (Verified 01/04/18 15:53) Rash levofloxacin [From Levaquin] Allergy (Verified 01/04/18 15:53) redness,rash nitrofurantoin Allergy (Verified 01/04/18 15:53) Unknown Penicillins Allergy (Verified 01/04/18 15:53) Anaphylaxis prednisone Allergy (Verified 01/04/18 15:53) Unknown pregabalin Allergy (Verified 01/04/18 15:53) Unknown cephalexin [From Keflex] Adverse Reaction (Verified 01/04/18 17:55) Upset Stomach norfloxacin [From Noroxin] Adverse Reaction (Verified 01/04/18 15:53) Upset Stomach phenytoin [From Dilantin] Adverse Reaction (Verified 01/04/18 15:53) loss of balance alvogen Allergy (Uncoded 01/04/18 15:53) Rash Home Medications: Ambulatory Orders Medication Instructions Recorded Baclofen [Lioresal] 10 mg PO QHS 04/15/16 Cholecalciferol (Vitamin D3) 5,000 unit PO DAILY 04/15/16 [Vitamin D3] - Social History SMOKING STATUS:: Never smoker Vital Signs Temp Pulse Resp BP Pulse Ox 100.7 F H 80 16 99/56 L 94 01/05/18 07:18 01/05/18 07:23 01/05/18 07:18 01/05/18 07:18 01/05/18 08:23 Oxygen Delivery Method Room Air Weight: 75.75 kg Body Mass Index (BMI) 26.2 Laboratory Tests Past 24 Hrs WBC 4.8 WBC 4.0 L RBC 3.43 L Hgb 10.2 L Hct 31.8 L MCV 92.7 MCH 29.7 MCHC 32.1 - Other Studies Radiology: [] reviewed Other Studies: [] Route of nutrition/ use of supplements: [] Nutritional Intake: [] IV Site: [] Arceo Catheter: [] - Physical Exam General: Alert, Oriented x3, Cooperative, - - uncomfortable HEENT: Atraumatic, PERRLA, EOMI Neck: Supple, No Nodes Lungs: Clear to auscultation, Normal air movement Cardiovascular: Regular rate, Regular Rhythm Abdomen: Soft, Tender - very tender over bladder Extremities: No edema Skin: No rashes IV Site: Central Line, without redness - R chest port Musculoskeletal: No Tenderness to Palpation of Joints or Extremities Neurological: Cranial nerves II-XII grossly intact - Assessment/Plan Antibiotics: [] Assessment/Plan: [] Recurrent uti in pt with MS, now with significant abd pain and n/v s/p bladder bx by Dr. Eller 01/01/18 - UA with heavy pyuria. Recent ucxs with ecoli-like. No fistula seen on CT 12/24. Multiple drug allergies. Ok to continue meropenem for now, ucx is pending. Given lack of improvement overnight and amount of pain with recent procedure, will check repeat CT of abd. Likely would not be able to tolerate an U/S. Will follow, thank you. 01/05/18 1047 <Electronically signed by Derrick Ledezma MD> Date Derrick Ledezma MD Cosigner Signature (if applicable): Date CC: Alise Da Silva; Derrick Ledezma MD; Curtis Abarca MD Signed ABDOMEN/PELVIS WITH Observed: 01/05/2018 Status: F Source: [place] CONTRAST 10:41 AM [facility] Imaging Services [address] [place], [place] [address] [place] [address] Abdomen/Pelvis WITH Contrast MR#: [id number] Acct: [id number] Name: OANH PABLO Rep #: [id number] : 1975 F 42 From: Tejas Carlson MD PCP: Curtis Abarca MD Status: ADM IN Study: Abdomen/Pelvis WITH Contrast Date of Exam: 01/05/18 Exam# [id number] Ordering Dr: Derrick Ledezma MD STUDY: CT ABDOMEN AND PELVIS WITH CONTRAST REASON FOR EXAM: Female, 42 years old. History of recent bladder biopsy. RADIATION DOSAGE (If Supplied By Facility): CTDIvol = ( 16.89 ) mGy, DLP = ( 1882.49 ) mGycm TECHNIQUE: Transaxial images were obtained from the dome of the diaphragm to the symphysis pubis without oral contrast. 100 ml of Isovue 300 contrast was administered. Sagittal and coronal images were reconstructed. Individualized dose optimization techniques were used for this CT. COMPARISON: Comparison is made with prior examination dated December 24, 2017. FINDINGS: Minimal increased markings at the lung bases suggestive of bibasilar atelectasis slightly more prominent on the left side. The visualized portions of the heart are within normal limits. Mild degree of intrahepatic biliary ductal dilatation. The patient is status post cholecystectomy. Normal spleen. Normal pancreas. Normal bilateral adrenal glands. Normal right kidney. Moderate atrophy of the left kidney. Stable 4.5 mm rounded calcification in the anterior lateral aspect of the left kidney. This is unchanged. Normal visualized stomach. Normal small intestine. There is diverticulosis, with thickening of the colon wall, and pericolonic inflammation changes consistent with acute diverticulitis. Increased markings are seen in the surrounding peritoneal fat. The appendix is visualized and appears normal. Normal abdominal aorta. Normal inferior vena cava. Normal retroperitoneum. An air-fluid level is seen within the urinary bladder. If there has been recent bladder instrumentation is a normal finding otherwise a colovesical fistula should be ruled out. There is evidence of inflammatory changes seen along the lateral aspect of the urinary bladder as well as along its left lateral base. An inflammatory process should be ruled out. There is absence of the uterus consistent with a prior hysterectomy. Normal abdominal wall. Normal osseous structures. CT/Abdomen/Pelvis WITH Contrast IMPRESSION: Inflammatory changes are seen in the region of the sigmoid colon extending to the left lateral wall of the urinary bladder with findings suggestive of inflammatory change. An air-fluid level is seen within the urinary bladder. A colovesical fistula should be ruled out. Electronically Signed: Tejas Carlson MD at 16:02 EST Tel [phone], Service support , CC: Derrick Ledezma MD; Curtis Abarca MD Data Processing Mechanic: Signed CBC W/DIFF, AUTOMATED Collected: 01/05/2018 Status: F Source: [place] 5:25 AM [facility] Order Comment: SPECIMEN OBTAINED FROM LINE DRAW TYPE CODE TESTS RESULT OUT OF RANGE REFERENCE UNITS LAB L100.1000 4.4-11.0 K/mm3 Low WBC 4.0 LAB L100.1200 4.2-5.4 M/mm3 Low RBC 3.43 LAB L100.1300 12.0-15.0 g/dl Low HGB 10.2 LAB L100.1400 37-47 % Low HCT 31.8 LAB L100.1500 81-99 fL Normal MCV 92.7 LAB L100.1600 27.0-32.0 pg Normal MCH 29.7 LAB L100.1700 32-36 g/gl Normal MCHC 32.1 LAB L100.1810 11.6-14.6 % Normal RDW CV 12.9 LAB L100.1820 35.1-43.9 fl Normal RDW SD 43.6 LAB L100.1900 150-450 K/mm3 Normal PLT 154 LAB L100.2000 6.2-12.0 fl Normal MPV 9.7 LAB L100.2100 47-70 % High NEUT% 71.1 LAB L100.2200 19-41 % Normal LY% 20.8 LAB L100.2300 0-10 % Normal MONO% 7.8 LAB L100.2400 0-5 % Normal EO% 0.0 LAB L100.2500 0-1 % Normal BASO% 0.3 LAB L100.2550 0.0-0.9 % Normal IM GRAN % 0.000 Result Comment: IG% - Immature Granulocytes (promyelocytes, myelocytes and metamyelocytes) > 1% indicates that a LEFT SHIFT is Present. LAB L100.2620 2.0-7.7 X10 3/uL Normal Absolute Neut 2.9 LAB L100.2720 0.83-4.51 X10 3/ul Normal Absolute Lymph 0.83 Performed By: #### L100.0100 #### [facility] [address] [place], [place], [address] BASIC METABOLIC Collected: 01/05/2018 Status: F Source: [place] PROFILE (BMP) 5:25 AM [facility] Order Comment: SPECIMEN OBTAINED FROM LINE DRAW TYPE CODE TESTS RESULT OUT OF RANGE REFERENCE UNITS LAB L501.0100 74-106 mg/dL Low GLU 60 Result Comment: Please note revised GLUCOSE reference range effective 2017. LAB L501.1000 7-18 mg/dL High BUN 21 LAB L501.1100 0.55-1.02 mg/dL High CREAT,SERUM 1.20 Result Comment: The validity of the calculated GFR AND GFRAA in patients over 70 years has not been determined. Clinical correlation is essential. LAB L501.1110 >60 mL/min Low EST GFR 52 Result Comment: Non- GFR Calc LAB L501.1115 >60 mL/min Normal EST GFR - AA 63 Result Comment: GFR Calc LAB L501.1255 ml/min Normal Estimated CRCL 58.18 LAB L501.1300 10-20 RATIO Normal BUN/CRE 17.5 LAB L501.2200 8.5-10 mg/dL Low .1 CA 8.3 LAB L501.5300 136-14 mmol/L Normal 5 NA 144 LAB L501.5600 3.5-5. mmol/L Normal 1 K 4.2 LAB L501.5900 98-107 mmol/L High CL 112 LAB L501.6100 21.0-3 mmol/L Low 2.0 CO2 19.0 LAB L501.6200 5-15 Normal GAP 13 Performed By: #### L500.2500 #### [facility] [address] [place], [address] EMERGENCY DEPARTMENT Observed: 01/05/2018 Status: F Source: [place] SUMMARY 2:17 AM [facility] Medical Records Department [address] [place] [address] Emergency Department Summary 01/04/18 1808 MR#: [id number] Acct: [id number] Name: OANH APBLO Rep #: [id number] : 1975 42 From: Ninfa Lira MD PCP: Curtis Abarca MD Status: ADM BROOKE - ER Visit Summary Date of Service: 01/04/18 Chief Complaint: Abdominal pain, foul smelling urine History of Present Illness: The patient is a 42 F with history of MS. Patient had a bladder biopsy on January [address] Eller. Patient reports having a poor appetite and nausea all weekend. She does report dysuria and foul-smelling urine. She denies hematuria. She has not noted a fever, but states she rarely gets fevers. Physical Examination: Blood pressure is 120/82, temperature 98.6, heart rate 98, respiratory rate 16, pulse ox 99% on room air. Patient sitting upright in bed. She appears ill but not toxic. Head and neck examination unremarkable. Heart is regular rate and rhythm. Lung sounds are clear. Abdomen is soft with mild tenderness in the suprapubic region. No guarding or rebound. Hypoactive bowel sounds are noted throughout. Test Results: CBC is unremarkable. Chemistry studies significant for glucose of 70 and a creatinine 1.22. Urinalysis is positive for nitrites, grade than 100 white cells with 4+ bacteria. Emergency Department Course and Treatment: Urine culture has been sent. Patient was given IV fluids and Phenergan. Patient has multiple antibiotic allergies. I did review an infectious disease note from last year when she was given meropenem for similar infection. She is dosed with meropenem at this time. I spoke with Dr. Eller and he will admit her to the floor. Treatment Plan: [] Disposition: Admit Impression: Cystitis This note was generated with [employer] dictation software. It may contain incorrect words, spelling, and punctuation that were not noted in review of the chart prior to signing ED Disposition - Plan for ED Patient: Chief Complaint: General Illness Referrals: Curtis Abarca MD [Primary Care Provider] - What to do if you have Problems For any increased pain, shortness of breath, bleeding, nausea or vomiting, chest pain, or any unexpected problems, contact your Primary Care Provider. Call [facility] ([phone]) or report to the closest Emergency Room. Call 911 if necessary. 01/05/18 0217 <Electronically signed by Ninfa Lira MD> Date Ninfa Lira MD Cosigner Signature (If Indicated): Date CC: Curtis Abarca MD CONSULTATION Observed: 01/04/2018 Status: F Source: [place] 6:56 PM [facility] Medical Records Department [address] [place] [address] Consultation 01/04/18 1833 MR#: [id number] Acct: [id number] Name: OANH PABLO Rep #: [id number] : 1975 42 From: Alise Da Silva PCP: Curtis Abarca MD Status: ADM BROOKE Y Location: [place]3 [id number] Problem List (1) UTI (urinary tract infection) Status: Acute Qualifiers: Urinary tract infection type: acute pyelonephritis Qualified Code(s): N10 - Acute pyelonephritis (2) Overweight (BMI 25.0-29.9) Status: Chronic (3) Migraines Status: Chronic Qualifiers: Migraine type: unspecified Status migrainosus presence: without status migrainosus Intractability: not intractable Qualified Code(s): G43.909 - Migraine, unspecified, not intractable, without status migrainosus (4) Type 2 diabetes mellitus Status: Chronic Qualifiers: Diabetes mellitus adjunct faculty for medical terminology insulin use: without nursing home use Diabetes mellitus complication status: without complication Qualified Code(s): E11.9 - Type 2 diabetes mellitus without complications (5) Multiple sclerosis Status: Chronic Reason for Consult Date of Consultation: 01/04/18 Reason for Consultation: Medical management History of Present Illness: The patient is a 42 y/o F w/ PMHx: Overweight, Multiple Sclerosis following w/ Dr. Jono Morrow, Chronic Migraines, CKD stage III (Baseline Cr 1.4), Diabetes mellitus type II history noted (Hgb 07/2013 5.3%) with history of recent bladder biopsy per Dr. Eller on 01/01/18 with following onset decreased appetite, nausea without emesis and severe suprapubic pain w/ increased urinary frequency and foul smelling urine. In the ED work-up noted T 98.6, heart rate 100, BP 105/64, respiratory rate 18, 100% on room air, CBC with WBC 4.8, hemoglobin 11.2, platelet 155 without market shift, BMP with BUN/creatinine 17/1.22, glucose 70, urinalysis notably remarkable with pending urine culture. In the ED patient administered normal saline, Phenergan as well as IV meropenem given allergies. ED noted to hospitalist physician intention for Dr. Eller to consult to the hospitalist service for medical management. Reviewed patient with Dr. Eller upon her admission. Past Medical History Past Medical History (Chronic Problems): Chronic Problems Overweight (BMI 25.0-29.9) (Chronic) Migraines (Chronic) Type 2 diabetes mellitus (Chronic) Multiple sclerosis (Chronic) Allergies adhesive tape Allergy (Verified 01/04/18 15:53) Rash aspirin [ASA] Allergy (Verified 01/04/18 15:53) Unknown cefpodoxime Allergy (Verified 01/04/18 15:53) Rash ciprofloxacin Allergy (Verified 01/04/18 15:53) Hives diclofenac Allergy (Verified 01/04/18 15:53) Rash gabapentin [From Neurontin] Allergy (Verified 01/04/18 15:53) Unknown latex Allergy (Verified 01/04/18 15:53) Rash levofloxacin [From Levaquin] Allergy (Verified 01/04/18 15:53) redness,rash nitrofurantoin Allergy (Verified 01/04/18 15:53) Unknown Penicillins Allergy (Verified 01/04/18 15:53) Anaphylaxis prednisone Allergy (Verified 01/04/18 15:53) Unknown pregabalin Allergy (Verified 01/04/18 15:53) Unknown cephalexin [From Keflex] Adverse Reaction (Verified 01/04/18 17:55) Upset Stomach norfloxacin [From Noroxin] Adverse Reaction (Verified 01/04/18 15:53) Upset Stomach phenytoin [From Dilantin] Adverse Reaction (Verified 01/04/18 15:53) loss of balance alvogen Allergy (Uncoded 01/04/18 15:53) Rash Home Medications: Ambulatory Orders Medication Instructions Recorded Baclofen [Lioresal] 10 mg PO QHS 04/15/16 Cholecalciferol (Vitamin D3) 5,000 unit PO DAILY 04/15/16 [Vitamin D3] Surgical History: - - x2, bladder sling surgery with mesh, hysterectomy, cholecystectomy, tonsillectomy, hammertoe surgery bilaterally, recent bladder biopsy. Psychiatric History: Anxiety NUTTER UP History: No pertinent NUTTER UP history Lives: Spouse/ Significant Other Smoking Status: Never smoker Tobacco Use: Non-smoker Alcohol: None Drugs: None - *Family History Maternal History Items: - - Patient notes that her mother is healthy and denies any history of heart disease, diabetes or cancer. Paternal History Items: Cancer - Bladder cancer, COPD, Diabetes, Heart Disease Offspring History Items: - - mental health Review of Systems Constitutional: Reports: Anorexia, Chills, Malaise, Weakness, Fatigue. Denies: Fever, Weight Change HEENT: Denies: Head Aches, Sinus Congestion, Sinus Drainage Cardiovascular: Denies: Chest Pain, Palpitations Respiratory: Denies: Cough, Shortness of breath at rest, Sputum production Gastrointestinal: Reports: Abdominal Pain, Nausea. Denies: Vomiting Genitourinary: Reports: Dysuria, Frequency, Urgency Musculoskeletal: Denies: Joint Pain, Joint Tenderness Skin: Denies: Rash, Wounds Neurological: Denies: Numbness, Tingling, Focal weakness Psychiatric: Reports: Anxiety. Denies: Depression, Homicidal Ideations, Suicidal Ideations Hematologic/ Lymphatic: Reports: Anemia. Denies: Easy Bruising, Easy Bleeding Subjective: Laying in the ED bed, fatigued and ill-appearing. Objective: Physical Examination: General: awake, alert, oriented x 3 and cooperative, seated upright in the ED bed, fatigued and ill-appearing. Skin: normal color, turgor, no icterus, cyanosis. HEENT: AT/NC, EOMI, PERRLA, dry MM, no carotid bruits or JVD noted. Lungs: CTA bilaterally, moderate effort, mild decrease BL bases, no rales, ronchi or wheezing. Heart: Mildly tachycardic w/ regular rhythm; no gallop, rub audible. Abdomen: soft, severe suprapubic TTP, ND, hypoactive BS, difficult to assess HSM secondary to pain. Extremities: no cyanosis, clubbing, or edema. Neurological: patient awake, alert, oriented x 3; cognitive function intact; pupils equally reactive to light and accomodation; cranial nerves II-XII grossly normal, moving all 4 extremities, no focal deficits, strength severely globally decreased secondary to acute presentation. Psychiatric: affect appears fatigued, no acute evidence of depressive or anxiety feelings. - Physical Exam Vital Signs Temp Pulse Resp BP Pulse Ox 98.6 F 100 20 H 105/64 99 01/04/18 15:50 01/04/18 18:00 01/04/18 18:00 01/04/18 18:00 01/04/18 18:00 Oxygen Delivery Method Room Air Weight: 167 lb Body Mass Index (BMI) 26.2 Laboratory Tests Past 24 Hrs Assessment/Plan All Active Problems Pyelonephritis (Acute) UTI (urinary tract infection) (Acute) The patient is a 42 y/o F w/ PMHx: Overweight, Multiple Sclerosis following w/ Dr. Jono Morrow, Chronic Migraines, CKD stage III, ? Diabetes mellitus type II with history of recent bladder biopsy per Dr. Eller on 01/01/18 with following onset decreased appetite, nausea without emesis and severe suprapubic pain w/ increased urinary frequency and foul smelling urine. (1) Acute Complicated Urinary Tract Infection s/p Recent Bladder Bx: Admitted to [place] per Dr. Eller, medicine consultation requested, UA upon ED evaluation remarkable, pending UCx, admission CBC not marked but severe appearing UA as noted, continue IVFs, monitor I/Os, continue IV meropenem given allergies w/ transition as able pending sensitivities and speciation. ID consulted, pending per Dr. Eller preference. No Bld cx were obtained in the ED prior to abx regimen. Requested bladder scans for retention w/ straight catheterization if appropriate. (2) Chronic Kidney Disease Stage III: Admission BUN/Cr 17/1.22, baseline renal function 1.4, repeat BMP in AM. (3) Multiple Sclerosis: Patient following w/ Dr. Jono Morrow, continue home mirabegron on regimen. (4) Chronic migraines: Continue home Topamax regimen. (5) ? Diabetes mellitus type II: Noted history, last HgbA1c 5.3% 2013, possibly only diet controlled, HgBA1c pending, allowance of clears secondary to severity of nausea and may ascertain further needs pending level. (6) Overweight: Lifestyle and diet changes encouraged. (7) DVT prophylaxis: SCDs, heparin. Code Visit Office Visits / Consults: [id number] IP Consult L3 01/04/18 1140 <Electronically signed by Alise Da Silva > Date Alise Da Silva Cosigner Signature (if applicable): Date CC: Alise Da Silva; Derrick Ledezma MD; Curtis Abarca MD Signed CBC W/DIFF, AUTOMATED Collected: 01/04/2018 Status: F Source: [place] 5:03 PM [facility] TYPE CODE TESTS RESULT OUT OF RANGE REFERENCE UNITS LAB L100.1000 4.4-11.0 K/mm3 Normal WBC 4.8 LAB L100.1200 4.2-5.4 M/mm3 Low RBC 3.76 LAB L100.1300 12.0-15.0 g/dl Low HGB 11.2 LAB L100.1400 37-47 % Low HCT 34.5 LAB L100.1500 81-99 fL Normal MCV 91.8 LAB L100.1600 27.0-32.0 pg Normal MCH 29.8 LAB L100.1700 32-36 g/gl Normal MCHC 32.5 LAB L100.1810 11.6-14.6 % Normal RDW CV 12.6 LAB L100.1820 35.1-43.9 fl Normal RDW SD 41.9 LAB L100.1900 150-450 K/mm3 Normal PLT 155 LAB L100.2000 6.2-12.0 fl Normal MPV 9.5 LAB L100.2100 47-70 % High NEUT% 71.4 LAB L100.2200 19-41 % Normal LY% 20.6 LAB L100.2300 0-10 % Normal MONO% 7.8 LAB L100.2400 0-5 % Normal EO% 0.0 LAB L100.2500 0-1 % Normal BASO% 0.2 LAB L100.2550 0.0-0.9 % Normal IM GRAN % 0.000 Result Comment: IG% - Immature Granulocytes (promyelocytes, myelocytes and metamyelocytes) > 1% indicates that a LEFT SHIFT is Present. LAB L100.2620 2.0-7.7 X10 3/uL Normal Absolute Neut 3.4 LAB L100.2720 0.83-4.51 X10 3/ul Normal Absolute Lymph 0.98 Performed By: #### L100.0100 #### [facility] [address] [place], [address] BASIC METABOLIC Collected: 01/04/2018 Status: F Source: [place] PROFILE (BMP) 5:03 PM [facility] TYPE CODE TESTS RESULT OUT OF RANGE REFERENCE UNITS LAB L501.0100 74-106 mg/dL Low GLU 70 Result Comment: Please note revised GLUCOSE reference range effective 2017. LAB L501.1000 7-18 mg/dL Normal BUN 17 LAB L501.1100 0.55-1.02 mg/dL High CREAT,SERUM 1.22 Result Comment: The validity of the calculated GFR AND GFRAA in patients over 70 years has not been determined. Clinical correlation is essential. LAB L501.1110 >60 mL/min Low EST GFR 51 Result Comment: Non- GFR Calc LAB L501.1115 >60 mL/min Normal EST GFR - AA 62 Result Comment: GFR Calc LAB L501.1255 ml/min Normal Estimated CRCL 57.22 LAB L501.1300 10-20 RATIO Normal BUN/CRE 13.9 LAB L501.2200 8.5-10 mg/dL Normal .1 CA 8.7 LAB L501.5300 136-14 mmol/L Normal 5 NA 140 LAB L501.5600 3.5-5. mmol/L Normal 1 K 3.9 LAB L501.5900 98-107 mmol/L Normal CL 106 LAB L501.6100 21.0-3 mmol/L Normal 2.0 CO2 21.0 LAB L501.6200 5-15 Normal GAP 13 Performed By: #### L500.2500 #### [facility] [address] [place], [place], [address] HEMOGLOBIN A1C Collected: 01/04/2018 Status: F Source: [place] 5:03 PM [facility] TYPE CODE TESTS RESULT OUT OF RANGE REFERENCE UNITS LAB L501.9985 4.2-6.3 % Normal HGB A1C 5.2 Performed By: #### L501.9985 #### [facility] [address] [place], [place], [address] URINALYSIS, COMPLETE Collected: 01/04/2018 Status: F Source: [place] 4:55 PM [facility] Order Comment: Order Date: 01/04/18 How was Urine Obtained? CLEAN CATCH TYPE CODE TESTS RESULT OUT OF RANGE REFERENCE UNITS LAB L400.3000 Yellow COLOR Normal Yellow LAB L400.3050 Clear Normal CLARITY Cloudy LAB L400.3200 Normal mg/dl Normal GLUCOSE, UR Normal LAB L400.3300 Negative mg/dL High BILIRUBIN URINE 1 Result Comment: COLOR OF URINE MAY AFFECT DIPSTICK RESULTS. LAB L400.3400 Negative mg/dl High KETONE UR 150 Result Comment: CRITICAL VALUE *H CRITICAL VALUE VERIFIED. CALLED TO KORI ARVIZU 01/04/18 Jermain Mathur. RESULTS READ BACK BY KORI . LAB L400.3465 1.002-1.030 Normal SP.GR. DIPSTX 1.020 LAB L400.3550 5.0 - 8.0 pH Normal UR 5.0 LAB L400.3600 Negative mg/dl High PROT DIPSTX 100 LAB L400.3700 Normal mg/dl High 1 UROBILI LAB L400.3750 Negative High NITRITE UR Positive LAB L400.3780 Negative /ul High OCCULT 250 BLOOD-UR LAB L400.3800 Negative /ul High LEUK ESTERASE 500 LAB L400.4050 0-5 /hpf Normal WBC >100 SEEN LAB L400.4100 0-5 /hpf Normal RBC-UA 25-50 SEEN Result Comment: Microscopic field is filled. Other elements may be obscured. LAB L400.4150 5-10 /hpf Normal SQUAM EPI 0-5 SEEN LAB L400.4300 None Seen /hpf Normal BACTERIA 4+ LAB L400.4350 <or=2+ /hpf Normal MUCUS, URINE 0 SEEN Performed By: #### L400.0001 #### [facility] [address] [place], [address] Observed: 01/04/2018 Status: F Source: [place] CULTURE, URINE 4:55 PM [facility] Order Date: 01/04/18 Urine Culture ORGANISM 1: Presumptive E. coli Raymond Count >100,000 Presumptive E. coli: REACTION Amoxacillin/Clavulanic Acid $ 4 S Ampicillin $ >=32 R Ampicillin/Sulbactam $ 16 I Cefazolin $ <=4 S Cefepime $ <=1 S Ceftriaxone $ <=1 S Ciprofloxacin $ <=0.25 S ESBL - Ertapenim $$$ <=0.5 S Gentamicin $ >=16 R Imipenem *NF <=0.25 S Levofloxacin $ <=0.12 S Nitrofurantoin $ <=16 S Piperacillin/Tazobactam $$ <=4 S Tobramycin $ 2 S Trimethoprim/Sulfametho $ >=320 R (NF) indicates non-formulary drug at [facility]. Approval by Infectious Disease Specialist required before non-formulary drugs may be ordered and/or dispensed. Performed By: #### M100.0650 #### [facility] [address] [place], [address] DISCHARGE INSTRUCTION Observed: 01/01/2018 Status: F Source: [place] 3:19 PM [facility] Medical Records Department [address] [place] [address] Instructions for Home/Discharge Instructions 01/01/18 1518 MR#: [id number] Acct: [id number] Name: OANH PABLO Rep #: [id number] : 1975 42 From: Apolinar Eller MD PCP: Curtis Abarca MD Status: REG [facility] Discharge Diet: Light diet - advance as tolerated Discharge Activity: Return to Normal Activity, May not drive while taking narcotic pain medications., May Shower Call your doctor if your incision/area has: Continuous Slow Oozing, Sudden Increased Bleeding, Increased Pain/ Swelling, Increased Redness, Foul Smelling Discharge, Swelling at the incision site Suture Line Care: Avoid Pulling/Pushing, Avoid Pinching/Bending Allergies/Adverse Reactions: Allergies adhesive tape Allergy (Verified 01/01/18 13:01) Rash aspirin [ASA] Allergy (Verified 01/01/18 13:01) Unknown cefpodoxime Allergy (Verified 01/01/18 13:01) Rash cephalexin [From Keflex] Allergy (Verified 01/01/18 13:01) Upset Stomach ciprofloxacin Allergy (Verified 01/01/18 13:01) Hives diclofenac Allergy (Verified 01/01/18 13:01) Rash gabapentin [From Neurontin] Allergy (Verified 01/01/18 13:01) Unknown latex Allergy (Verified 01/01/18 13:01) Rash levofloxacin [From Levaquin] Allergy (Verified 01/01/18 13:01) redness,rash nitrofurantoin Allergy (Verified 01/01/18 13:01) Unknown Penicillins Allergy (Verified 01/01/18 13:01) Anaphylaxis prednisone Allergy (Verified 01/01/18 13:01) Unknown pregabalin Allergy (Verified 01/01/18 13:01) Unknown norfloxacin [From Noroxin] Adverse Reaction (Verified 01/01/18 13:01) Upset Stomach phenytoin [From Dilantin] Adverse Reaction (Verified 01/01/18 13:01) loss of balance alvogen Allergy (Uncoded 01/01/18 13:01) Rash Medications to take at Discharge Baclofen [Lioresal] 10 mg PO QHS 04/15/16 Cholecalciferol (Vitamin D3) [Vitamin D3] 5,000 unit PO DAILY 04/15/16 Lisinopril [Zestril] 5 mg PO QODAY 04/15/16 Lorazepam [Ativan] 1 mg PO QHS 04/15/16 Lysine [l-Lysine] 1,000 mg PO DAILY 04/15/16 Mirabegron [Myrbetriq] 50 mg PO DAILY 04/15/16 Solifenacin Succinate [Vesicare] 10 mg PO QHS 04/15/16 Topiramate [Topamax] 200 mg PO QHS 04/15/16 Ascorbic Acid [Vitamin C] 1,000 mg PO QHS 12/28/17 Coconut Oil 2,000 mg PO DAILY 12/28/17 Cranberry Conc/Ascorbic Acid [Cranberry 12,600 mg Softgel] 1 each PO DAILY 12/28/17 Herbal Drugs [Colon Herbal Cleanser] 2 each PO QHS 12/28/17 Tizanidine HCl [Zanaflex] 2 mg PO QHS 12/28/17 Hydrocodone Bitart/Apap 5-325 [Troy 5MG-325MG] 1 tab PO Q4H PRN PRN 5 Days #10 tab 01/01/18 Hydrocodone/Acetaminophen [Troy 5-325 Tablet] 1 ea PO Q4H PRN PRN 3 Days #10 tab 01/01/18 The following prescriptions were given: Hydrocodone Bitart/Apap 5-325 [Troy 5MG-325MG] 1 tab PO Q4H PRN PRN 5 Days #10 tab PRN Reason: Pain Hydrocodone/Acetaminophen [Troy 5-325 Tablet] 1 ea PO Q4H PRN PRN 3 Days #10 tab PRN Reason: Pain Primary Care Physician: Curtis Abarca MD [Primary Care Provider] - Test Results: Test results from this visit will be discussed in further detail at your follow-up appointment, if applicable. Please Follow Up With: Apolinar Eller MD When: in 2 weeks, please call to make an appointment. 01/01/18 1519 <Electronically signed by Apolinar Eller MD> Date Apolinar Eller MD CC: Curtis Abarca MD BLADDER TUR Observed: 01/01/2018 Status: F Source: [place] 2:30 PM [facility] Patient: OANH PABLO : 1975 (42/F) Acct Num: [id number] Phys: Apolinar Eller MD Unit Num: [id number] Loc: [facility] Specimen: [id number] Received: 01/01/181606 Spec Type: TURB TISSUES 1 TISSUES: Urinary bladder, NOS - LESION GROSS DESCRIPTION Received in fixative is one container labeled with the patient's name and designated bladder lesion. The specimen consists of one irregular fragment of light hi soft tissue that measures 0.3 x 0.1 x 0.1 cm. The specimen is totally submitted in one cassette. / SJ:adan 01/04/18 TC:2 CPT: 36482 HEADER OPERATION: Cysto, transurethral resection bladder, [employer] PRE-OP DIAGNOSIS: Hematuria; bladder lesion TISSUE SUBMITTED: Bladder lesion MICROSCOPIC DESCRIPTION Slides are reviewed. MICROSCOPIC DIAGNOSIS Urinary bladder lesion, TUR: Acute and chronic cystitis with reactive vascular ectasia and epithelial change. No evidence of malignancy. AM:adan 01/05/18 Signed Nestor Shook 01/05/18 <signature on file> Performed By: #### PBLB #### [facility] [address] [place], [place] [address], [address] CBC-COMPLETE BLOOD CNT Collected: 01/01/2018 Status: F Source: [place] NO DIFF 12:36 PM [facility] Order Comment: Reason for Laboratory Test preop per port TYPE CODE TESTS RESULT OUT OF RANGE REFERENCE UNITS LAB L100.1000 4.4-11.0 K/mm3 Low WBC 2.4 LAB L100.1200 4.2-5.4 M/mm3 Low RBC 4.03 LAB L100.1300 12.0-15.0 g/dl Normal HGB 12.0 LAB L100.1400 37-47 % Low HCT 36.8 LAB L100.1500 81-99 fL Normal MCV 91.3 LAB L100.1600 27.0-32.0 pg Normal MCH 29.8 LAB L100.1700 32-36 g/gl Normal MCHC 32.6 LAB L100.1810 11.6-14.6 % Normal RDW CV 13.0 LAB L100.1820 35.1-43.9 fl Normal RDW SD 43.3 LAB L100.1900 150-450 K/mm3 Normal PLT 184 LAB L100.2000 6.2-12.0 fl Normal MPV 9.4 Performed By: #### L100.0500 #### [facility] [address] [place], [place], [address] PROTHROMBIN TIME W/INR Collected: 01/01/2018 Status: F Source: [place] 12:36 PM [facility] Order Comment: Reason for Laboratory Test preop drawn per port Reason for Laboratory Test preop draw per port TYPE CODE TESTS RESULT OUT OF RANGE REFERENCE UNITS LAB L300.4150 11.7-14.9 SECONDS Normal PROTIME 13.3 LAB L300.4200 Normal INR 1.0 Performed By: #### L300.3900, L300.4310 #### [facility] [address] [place], [place], [address] PARTIAL THROMBOPLAST Collected: 01/01/2018 Status: F Source: [place] TIME 12:36 PM [facility] Order Comment: Reason for Laboratory Test preop drawn per port Reason for Laboratory Test preop draw per port TYPE CODE TESTS RESULT OUT OF RANGE REFERENCE UNITS LAB L300.4310 24.1-36.2 Seconds Normal PTT 28.1 Performed By: #### L300.3900, L300.4310 #### [facility] [address] [place], [address] LIVER PROFILE Collected: 01/01/2018 Status: F Source: [place] 12:36 PM [facility] Order Comment: Reason for Laboratory Test preop draw per port TYPE CODE TESTS RESULT OUT OF RANGE REFERENCE UNITS LAB L501.1500 6.4-8.2 g/dL Normal T PROT 7.0 LAB L501.1800 3.2-5.0 g/dL Normal ALB 3.8 LAB L501.1950 2.2-4.2 g/dL Normal GLOB 3.2 LAB L501.4100 15-37 U/L Low AST 10 LAB L501.4305 45-117 U/L Normal ALK P 49 LAB L501.4405 13-56 U/L Normal ALT 31 LAB L501.4600 0.20-1.00 mg/dL Normal T BILI 0.50 LAB L501.4700 0.00-0.30 mg/dL Normal D BILI 0.17 Performed By: #### L500.3400 #### [facility] [address] [place], [address] CREATININE FINGERSTICK Collected: 12/24/2017 Status: F Source: [place] 3:16 PM [facility] TYPE CODE TESTS RESULT OUT OF REFERENCE UNITS RANGE LAB L9100.0210 0.55-1.02 mg/dL High CREATININE WB 1.1 LAB L9100.0220 >60 mL/min Low EGFR WB 57.0000 Performed By: #### L9100.0200 #### [facility] Point of Care [address] [place] [address] ABDOMEN/PELVIS WITH Observed: 12/24/2017 Status: F Source: [place] CONTRAST 2:36 PM [facility] [place] [address] Abdomen/Pelvis WITH Contrast MR#: [id number] Acct: [id number] Name: OANH PABLO Rep #: [id number] : 1975 F 42 From: Tejas Carlson MD PCP: Curtis Abarca MD Status: REG CLI Study: Abdomen/Pelvis WITH Contrast Date of Exam: 12/24/17 Exam# [id number] Ordering Dr: Apolinar Eller MD STUDY: CT ABDOMEN AND PELVIS WITH CONTRAST REASON FOR EXAM: Female, 42 years old. Painful urination. Possible colovesical fistula. RADIATION DOSAGE (If Supplied By Facility): CTDIvol = ( 15.91 ) mGy, DLP = ( 2611.54 ) mGycm TECHNIQUE: Transaxial images were obtained from the dome of the diaphragm to the symphysis pubis with oral and rectal contrast. 75mL ml of Isovue 300 contrast was administered. Sagittal and coronal images were reconstructed. Individualized dose optimization techniques were used for this CT. COMPARISON: Comparison is made with prior examination dated April 19, 2016. FINDINGS: The visualized lung bases are unremarkable. The visualized portions of the heart are within normal limits. Minimal degree of dilated intrahepatic biliary ducts. The common bile duct is not dilated. The gallbladder is not visualized consistent with prior cholecystectomy. Normal spleen. Normal pancreas. Normal bilateral adrenal glands. Normal right kidney. There is moderate atrophy of the left kidney. There is a 4.5 mm rounded calcification in the anterior lateral aspect of the left kidney. This is unchanged. Normal visualized stomach. Normal small intestine. Moderate amount of fecal material is seen in the colon. There is non-visualization of the appendix. Normal abdominal aorta. Normal inferior vena cava. Normal retroperitoneum. Normal urinary bladder. There is no evidence of a colovesical fistula. There is absence of the uterus consistent with a prior hysterectomy. Normal abdominal wall. Normal osseous structures. CT/Abdomen/Pelvis WITH Contrast IMPRESSION: Moderate amount of fecal material is seen in the colon. Status post cholecystectomy and hysterectomy. There is no evidence of colovesical fistula. Atrophy of the left kidney with tiny calcification along its anterior lateral aspect. Electronically Signed: Tejas Carlson MD at 10:59 EDT Tel [phone], Service support , CC: Apolinar Eller MD; Curtis Abarca MD Data Processing Mechanic: Signed Observed: 12/17/2017 Status: F Source: [place] CULTURE, URINE 4:45 PM [facility] REPOSITORY Urine Culture ORGANISM 1: Presumptive E. coli Raymond Count 11,000-25,000 Presumptive E. coli: REACTION Amoxacillin/Clavulanic Acid $ 8 S Ampicillin $ >=32 R Ampicillin/Sulbactam $ 16 I Cefazolin $ <=4 S Cefepime $ <=1 S Ceftriaxone $ <=1 S Ciprofloxacin $ <=0.25 S ESBL - Ertapenim $$$ <=0.5 S Gentamicin $ >=16 R Imipenem *NF <=0.25 S Levofloxacin $ <=0.12 S Nitrofurantoin $ <=16 S Piperacillin/Tazobactam $$ <=4 S Tobramycin $ 2 S Trimethoprim/Sulfametho $ >=320 R (NF) indicates non-formulary drug at [facility]. Approval by Infectious Disease Specialist required before non-formulary drugs may be ordered and/or dispensed. Performed By: #### [id number] #### [facility] [place], [address] CYTOSPIN ON FLUID Observed: 12/17/2017 Status: F Source: [place] 4:45 PM [facility] REPOSITORY Patient: OANH PABLO : 1975 (42/F) Acct Num: [id number] Phys: Daphnie PROCTOR,Apolinar Gentile Unit Num: [id number] Loc: LABSPEC Specimen: [id number] Received: 12/18/17 1058 Spec Type: CYSPIN FL TISSUES 1 TISSUES: Urine COMMENT Please make reference to previous specimen ([id number]), urine for cytology with diagnosis of negative for malignant cells and marked acute inflammation. Repeat cytology is suggested if clinically indicated after treatment of inflammation. CYTOLOGY GROSS Received is 20 ml of cloudy yellow fluid labeled with the patient's name and and designated per the requisition as urine. Submitted for cytology preparation. / 12/18/17 TC:2 CPT: 14097 CYTOLOGY STUDY Slides are reviewed. DIAGNOSIS CYTOLOGY Urine for cytology (cytospin): Negative for malignant cells. Marked acute inflammation. See comment. SJ:rg 12/21/17 HEADER OPERATION: Not noted PRE-OP DIAGNOSIS: UTI, hematuria TISSUE SUBMITTED: Urine for cytology Signed Clyde Jain 12/21/17 <signature on file> Performed By: #### PCYSPIN #### [facility] [address] [place], [place], [address] CYTOLOGY, BODY FLUID / Collected: 12/17/2017 Status: F Source: [facility] 4:45 PM [facility] REPOSITORY Order Comment: Specimen Source: URINE TYPE CODE TESTS RESULT OUT OF RANGE REFERENCE UNITS LAB L350.1000 SEE Normal PATHOLOGY CYTOLOGY,BF REPORT /CSF Result Comment: Specimen submitted to Anatomical Pathology Department for testing. Performed By: #### L350.1000 #### [facility] [address] [place], [address] CNOV Observed: 12/10/2017 Status: COMPLETED Source: [place] 3:10 PM [facility] REPOSITORY Office Visit (GONZÁLEZ) OANH PABLO ([id number]) 1975 F Date Time Provider Department 12/10/17 3:10 PM BROOKE SALTER (PA) During your visit today, we recorded the following information about you: Pulse Blood pressure Weight Height 72/minute 110/72 77.6 kg 1.702 m Brooke Salter PA-C 12/10/2017 3:57 PM Signed Time out: 3:49 PM Time In: 3:25 PM [facility] - Follow up Visit Last Visit: 12/24/16 ACTIVE PROBLEM LIST Unspecified Constipation Calculus of Gallbladder Without Mention of Cholecystitis Or Obstruction PAIN ABDOMEN( Generalized) Incisional Hernia Without Mention of Obstruction Or Gangrene DIASTASIS RECTI Gait Abnormality Multiple Sclerosis (Hcc) Migraine Without Aura Migraine With Aura Chronic Migraine Without Aura, With Intractable Migraine, So Stated, With Status Migrainosus Syncope Hypothyroid Intractable Migraine Without Aura and Without Status Migrainosus Cervicalgia CC: headaches Interval Headache Hx: Ms. Pablo has a history of chronic migraines both with and without aura and multiple sclerosis. She has received bilateral greater and lesser occipital nerve blocks (16 cc Marcaine total, no steroids). She had been having daily headaches. She was investigating [facility] for some kind of device. We added in lisinopril 5 mg daily and if this did not help her frequency, the next step what was going to be to apply for Botox. At her last visit, we refilled her Topamax. Since that time, she has been pretty good for the most part. She has recently had extra family stress. She has intentionally lost 35 pounds and feels better. She has fewer headaches and her MS is in remission as well. Pain today: 8/10 Total headache days per month: 9 per month Headache free days: Yes Abortive medications: none ALLERGIES Allergen Reactions - Asa [Salicylates] Other: See Comments unknown childhood - Neurontin [Gabapent* Rash - Nitrofurantoin Rash - Penicillins Rash difficulty breathing - Prednisone Shortness of Breath - Pregabalin Rash - Vancomycin Rash, Hives (complete and enter dot-cmed) REVIEW OF SYSTEMS:?Boldface = positive?(boldface not visible in MyChart) GENERAL:Negative for?fevers, night sweats, weight change or fatigue HEENT:Negative for significant changes in vision or vision problems, significant ear problems or hearing loss, tinnitus, nasal discharge or nose bleeds and sore throat, difficulty swallowing RESPIRATORY: Negative for?cough, wheezing and shortness of breath CARDIOVASCULAR: Negative for chest pain, palpitations or leg swelling GASTROINTESTINAL: Negative for abdominal discomfort,?nausea, vomiting, diarrhea, constipation GENITOURINARY: Negative for dysuria,?frequency and incontinence MUSCULOSKELETAL: Negative for joint pain or swelling, back pain, neck pain?and muscle pain. NEUROLOGIC:Negative for focal numbness or weakness, headaches and dizziness. SKIN:Negative for lesions, rash, and itching. PSYCHIATRIC: Negative for?sleep disturbance, depression, anxiety HEMATOLOGIC/LYMPHATIC/IMMUNOLOGIC:Negative for prolonged bleeding or?bruising easily. ENDOCRINE: Negative for cold or heat intolerance, polyuria, polydipsia. ?d bleeding or bruising easily. ENDOCRINE: Negative for cold or heat intolerance, polyuria, polydipsia. Physical Examination: BP 110/72 Pulse 72 Ht 170.2 cm (5' 7) Wt 77.6 kg (171 lb) BMI 26.78 kg/m? General: well appearing, in no acute distress, alert, HEENT: Normocephalic/atraumatic., Skin: Color, texture, turgor normal. No rashes or lesions, Lungs: normal breath sounds bilaterally, CV: RRR, normal S1, S2 auscultated, no murmurs and no JVD, Musculoskeletal: No gross joint deformities. Normal mental status. Normal tone and strength. Normal coordination. Normal gait. + Difficulty maintaining gaze with following finger movement 3:25 PM - pain 8/10 - Toradol 60 mg IM given to right gluteal without complication. 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 She has had significant family stress but her headaches have not increased proportionately. She averages about nine headaches per month now. She has intentionally lost 35 pounds and feels much better. Her headache symptoms have lessened as have her MS symptoms. She has not been taking any abortive medications. She had tried triptans unsuccessfully. I recommended that she try using diclofenac and Zofran together to abort a headache. She was congratulated on her weight loss and on how well she is managing her headaches. Plan: At the start of a headache, take cataflam (diclofenac) 50 mg and Zofran (ondansetron) 8 mg for nausea. You can do this every 8 hours as needed CONGRATS on your weight loss - great job!! You are doing a great job managing your headaches! Follow-up: 1 year Total time in minutes spent with patient: 24 Greater than 50% of time spent counseling patient. My supervising Physician is Glenn Maxim, MD Brooke W. Salter, PA-C Because some components of this proof-read clinical note have been produced using speech recognition software, it may still contain errors related to that system including incorrect grammar, punctuation, spelling, words and phrases. Brooke Salter PA-C 12/10/2017 3:45 PM Signed At the start of a headache, take cataflam (diclofenac) 50 mg and Zofran (ondansetron) 8 mg for nausea. You can do this every 8 hours as needed CONGRATS on your weight loss - great job!! You are doing a great job managing your headaches! Referring Provider: MARLENI DUPREE [[id number]] Allergies As of Date: 12/10/2017 Noted Allergy Reaction ASA (SALICYLATES) 11/21/2005 14 - Other: See Comments Comments: unknown childhood NEURONTIN (GABAPENTIN) 09/24/2015 2 - Rash NITROFURANTOIN 12/06/2015 2 - Rash PENICILLINS 12/24/2005 2 - Rash Comments: difficulty breathing PREDNISONE 09/24/2015 12 - Shortness of Breath PREGABALIN 10/17/2015 2 - Rash VANCOMYCIN 10/15/2015 2 - Rash 4 - Hives Date Reviewed: 12/10/2017 Reviewed by: Praveena Soares - Fully Assessed Reason for Visit: Established Patient [175] Primary Visit Diagnosis:Migraine without aura and without status migrainosus, not intractable [G43.009] Order(s):[] ketorolac 60 mg injection (TORADOL)Disp: Rfl: ondansetron (ZOFRAN) 8 mg tabletTake 1 tablet by mouth every 8 hours as needed for Nausea/Vomiting (and headaches). FOR NAUSEADisp: 30 tabletRfl: 5 diclofenac potassium (CATAFLAM) 50 mg tabletTake 1 tablet by mouth three times daily as needed (headaches).Disp: 30 tabletRfl: 5 Prescriptions as of 12/10/2017 Sig: TOPIRAMATE 100 MG TABLET Take 2 tablets by mouth daily* LISINOPRIL 5 MG TABLET Take 1 tablet by mouth once d* TIZANIDINE 2 MG TABLET Take 1-2 tablets by mouth at * BACLOFEN 10 MG TABLET Take 3 tablets (30 mg) by sven* Patient taking differently: Take 10 mg by mouth daily at * SODIUM CHLORIDE 0.9 % INJECTI* Please gently forward flush g* SODIUM CHLORIDE 0.9 % INJECTI* Please flush [place] medipor* LORAZEPAM 1 MG TABLET Take 1 tablet by mouth twice * CRANBERRY 500 MG CAPSULE Take 25,000 mg by mouth once * CHOLECALCIFEROL (VITAMIN D3) * Take 5,000 Units by mouth onc* OTC NUTRITIONAL SUPPLEMENT colon max 2 tabs at bedtime SOLIFENACIN 10 MG TABLET Take 10 mg by mouth once yoly* MIRABEGRON ER 50 MG TABLET,EX* Take by mouth once daily. ONDANSETRON HCL 8 MG TABLET Take 1 tablet by mouth every * DICLOFENAC POTASSIUM 50 MG TA* Take 1 tablet by mouth three * Problem List As Of Date 12/10/2017 Noted Resolved CONSTIPATION NOS [K59.00] INVALID FOR* CHOLELITHIASIS NOS [K80.20] INVALID FOR* PAIN ABDOMEN( Generalized) [R10.84] INVALID FOR* INCISIONAL HERNIA [K43.2] INVALID FOR* DIASTASIS RECTI [M62.00] INVALID FOR* Gait Abnormality [R26.9] INVALID FOR* Multiple sclerosis (HCC) [G35] INVALID FOR* More... Migraine without aura and without status migrai*INVALID FOR* Migraine with aura [G43.109] INVALID FOR* Chronic migraine without aura, with intractable*INVALID FOR* Syncope [R55] INVALID FOR* More... Hypothyroid [E03.9] INVALID FOR* Intractable migraine without aura and without s*INVALID FOR* Cervicalgia [M54.2] INVALID FOR* Other instructions from your clinician: At the start of a headache, take cataflam (diclofenac) 50 mg and Zofran (ondansetron) 8 mg for nausea. You can do this every 8 hours as needed CONGRATS on your weight loss - great job!! You are doing a great job managing your headaches! Prescriptions ordered this encounter Disp Refills Start End KETOROLAC 60 MG/2 ML INTRAMUSCULAR S* 12/10/2017 12/10/2017 Route: INTRAVENOUS ONDANSETRON HCL 8 MG TABLET 30 t* 5 12/10/2017 Route: ORAL Sig: Take 1 tablet by mouth every 8 hours as needed for Nausea/Vomiting (and headaches). FOR NAUSEA DICLOFENAC POTASSIUM 50 MG TABLET 30 t* 5 12/10/2017 Route: ORAL Sig: Take 1 tablet by mouth three times daily as needed (headaches). Medications Discontinued During This Encounter LORazepam (ATIVAN) 0.5 mg tab 90 t* 1 12/07/2015 12/10/2017 Class: Print RX Route: ORAL Sig: Take 1 tablet by mouth three times daily as needed. Patient not taking: Reported on 08/20/2017 Disc: Reason for discontinue is not on file. Disposition: Return in about 1 year (around 12/10/2018). Follow-up and Disposition History Recorded Encounter Status:Closed by BROOKE SALTER PA-C on 12/10/17 PROGRESS Observed: 12/07/2017 Status: COMPLETED Source: [place] 3:35 PM [facility] REPOSITORY HNO ID: [id number] Author: Brooke Miller (Jazmyne) Gaetano Service: (none) Author Type: Physician [employer]idential [employer]od[employer] Subcontractor Type: Progress Notes Filed: 12/10/2017 3:57 PM Note Text: Time out: 3:49 PM Time In: 3:25 PM [facility] - Follow up Visit Last Visit: 12/24/16 ACTIVE PROBLEM LIST Unspecified Constipation Calculus of Gallbladder Without Mention of Cholecystitis Or Obstruction PAIN ABDOMEN( Generalized) Incisional Hernia Without Mention of Obstruction Or Gangrene DIASTASIS RECTI Gait Abnormality Multiple Sclerosis (Hcc) Migraine Without Aura Migraine With Aura Chronic Migraine Without Aura, With Intractable Migraine, So Stated, With Status Migrainosus Syncope Hypothyroid Intractable Migraine Without Aura and Without Status Migrainosus Cervicalgia CC: headaches Interval Headache Hx: Ms. Pablo has a history of chronic migraines both with and without aura and multiple sclerosis. She has received bilateral greater and lesser occipital nerve blocks (16 cc Marcaine total, no steroids). She had been having daily headaches. She was investigating [facility] for some kind of device. We added in lisinopril 5 mg daily and if this did not help her frequency, the next step what was going to be to apply for Botox. At her last visit, we refilled her Topamax. Since that time, she has been pretty good for the most part. She has recently had extra family stress. She has intentionally lost 35 pounds and feels better. She has fewer headaches and her MS is in remission as well. Pain today: 8/10 Total headache days per month: 9 per month Headache free days: Yes Abortive medications: none ALLERGIES Allergen Reactions - Asa [Salicylates] Other: See Comments unknown childhood - Neurontin [Gabapent* Rash - Nitrofurantoin Rash - Penicillins Rash difficulty breathing - Prednisone Shortness of Breath - Pregabalin Rash - Vancomycin Rash, Hives (complete and enter dot-cmed) REVIEW OF SYSTEMS:?Boldface = positive?(boldface not visible in MyChart) GENERAL:Negative for?fevers, night sweats, weight change or fatigue HEENT:Negative for significant changes in vision or vision problems, significant ear problems or hearing loss, tinnitus, nasal discharge or nose bleeds and sore throat, difficulty swallowing RESPIRATORY: Negative for?cough, wheezing and shortness of breath CARDIOVASCULAR: Negative for chest pain, palpitations or leg swelling GASTROINTESTINAL: Negative for abdominal discomfort,?nausea, vomiting, diarrhea, constipation GENITOURINARY: Negative for dysuria,?frequency and incontinence MUSCULOSKELETAL: Negative for joint pain or swelling, back pain, neck pain?and muscle pain. NEUROLOGIC:Negative for focal numbness or weakness, headaches and dizziness. SKIN:Negative for lesions, rash, and itching. PSYCHIATRIC: Negative for?sleep disturbance, depression, anxiety HEMATOLOGIC/LYMPHATIC/IMMUNOLOGIC:Negative for prolonged bleeding or?bruising easily. ENDOCRINE: Negative for cold or heat intolerance, polyuria, polydipsia. ?d bleeding or bruising easily. ENDOCRINE: Negative for cold or heat intolerance, polyuria, polydipsia. Physical Examination: BP 110/72 Pulse 72 Ht 170.2 cm (5' 7) Wt 77.6 kg (171 lb) BMI 26.78 kg/m? General: well appearing, in no acute distress, alert, HEENT: Normocephalic/atraumatic., Skin: Color, texture, turgor normal. No rashes or lesions, Lungs: normal breath sounds bilaterally, CV: RRR, normal S1, S2 auscultated, no murmurs and no JVD, Musculoskeletal: No gross joint deformities. Normal mental status. Normal tone and strength. Normal coordination. Normal gait. + Difficulty maintaining gaze with following finger movement 3:25 PM - pain 8/10 - Toradol 60 mg IM given to right gluteal without complication. 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 Pablo returns for yearly follow-up. She has had significant family stress but her headaches have not increased proportionately. She averages about nine headaches per month now. She has intentionally lost 35 pounds and feels much better. Her headache symptoms have lessened as have her MS symptoms. She has not been taking any abortive medications. She had tried triptans unsuccessfully. I recommended that she try using diclofenac and Zofran together to abort a headache. She was congratulated on her weight loss and on how well she is managing her headaches. Plan: At the start of a headache, take cataflam (diclofenac) 50 mg and Zofran (ondansetron) 8 mg for nausea. You can do this every 8 hours as needed CONGRATS on your weight loss - great job!! You are doing a great job managing your headaches! Follow-up: 1 year Total time in minutes spent with patient: 24 Greater than 50% of time spent counseling patient. My supervising Physician is MD Brooke Howell PA-C Because some components of this proof-read clinical note have been produced using speech recognition software, it may still contain errors related to that system including incorrect grammar, punctuation, spelling, words and phrases. Observed: 12/07/2017 Status: F Source: [place] C URINE 1:41 PM [facility] REPOSITORY Final Report: Rare Mixed skin contaminants in Normal skin antwan isolated Performed By: #### [id number] #### PATY Microbiology Subsection [address] [place] [address] CYTOLOGY, BODY FLUID / Collected: 11/30/2017 Status: F Source: [place] CSF 4:30 PM [facility] REPOSITORY Order Comment: Specimen Source: URINE TYPE CODE TESTS RESULT OUT OF RANGE REFERENCE UNITS LAB L350.1000 SEE Normal PATHOLOGY CYTOLOGY,BF REPORT /CSF Result Comment: Specimen submitted to Anatomical Pathology Department for testing. Performed By: #### L350.1000 #### [facility] [address] [place], [place], [address] CYTOSPIN ON FLUID Observed: 11/30/2017 Status: F Source: [place] 12:00 AM [facility] REPOSITORY Patient: OANH PABLO : 1975 (42/F) Acct Num: [id number] Phys: Juan J GALE,Janelle Unit Num: [id number] Loc: LABSPEC Specimen: [id number] Received: 12/01/17 - 1345 Spec Type: CYSPIN FL TISSUES 1 TISSUES: Urine COMMENT Repeat cytology is suggested if clinically indicated after treatment of inflammation. CYTOLOGY GROSS Received is 10 ml of yellow cloudy fluid labeled with the patient's name and and designated per the requisition as urine. Submitted for cytology preparation. / 12/01/17 TC:2 CPT: 51372 CYTOLOGY STUDY Slides are reviewed. DIAGNOSIS CYTOLOGY Urine for cytology (cytospin): Negative for malignant cells. Marked acute inflammation. See comment. SJ:adan 12/02/17 HEADER OPERATION: Not noted PRE-OP DIAGNOSIS: Hematuria TISSUE SUBMITTED: Urine for cytology Signed Clyde Jarrett 12/02/17 <signature on file> Performed By: #### PCYSPIN #### [facility] [address] [place] [address]. [place], [address] Observed: 11/18/2017 Status: F Source: [place] URINE 12:23 AM [facility] REPOSITORY Final Report: Light growth of Normal skin antwan isolated Performed By: #### [id number] #### PATY Microbiology Subsection [address] [place] [address] UA COMPLETE Collected: 11/18/2017 Status: F Source: [place] 12:00 AM [facility] REPOSITORY TYPE CODE TESTS RESULT OUT OF RANGE REFERENCE UNITS LAB 35989659( Yellow LOINC) Normal UA Color Yellow LAB 16101177( Clear LOINC) UA Clarity Abnormal SltCloudy LAB 11454613( Negative LOINC) Normal UA Glucose Negative LAB 29552536( Negative LOINC) Normal UA Bili Negative LAB 12363386( Negative LOINC) Normal UA Ketones Negative LAB 51533950( 1.003-1.030 LOINC) Normal UA Spec 1.012 Grav LAB 00271536( 4.6-8.0 LOINC) Normal UA pH 6.0 LAB 62730271( Negative LOINC) Normal UA Protein Negative LAB 36020894( mg/dL LOINC) UA 2.0 Abnormal Urobilinogen LAB 38011272( Negative LOINC) Normal UA Nitrite Negative LAB 79501892( Negative LOINC) Normal UA Blood Negative LAB 78557717( Negative LOINC) UA Leuk Est 3+ Abnormal LAB 47951393( 0-3 /HPF LOINC) UA RBC 5-10 Abnormal LAB 35816674( 0-5 /HPF LOINC) UA WBC >50 Abnormal LAB 72767013( 0-5 /HPF LOINC) UA Squam 10-20 Abnormal Epithelial LAB 24269422( 0-2 /HPF LOINC) Normal UA 0-2 Transitional Epithelial LAB 78809459( None /HPF LOINC) UA Bacteria 1+ Abnormal LAB 67417971( None /HPF LOINC) UA Yeast 2+ Abnormal LAB 83195409( Trace /LPF LOINC) UA Mucous Trace Abnormal LAB 46433809( None /HPF LOINC) UA Amorph Trace Abnormal Shona LAB 63090504( None /HPF LOINC) UA WBC Abnormal Clump Occasional Performed By: #### [id number] #### PATY [place] [address] CBC W/ AUTO DIFF Collected: 11/17/2017 Status: F Source: [place] 10:28 PM [facility] REPOSITORY TYPE CODE TESTS RESULT OUT OF RANGE REFERENCE UNITS LAB 21213648(L 3.6-11.0 E3/mcL OINC) Normal WBC 3.9 LAB 27677279(L 3.90-5.40 E6/mcL OINC) Normal RBC 4.01 LAB 00201689(L 12.0-16.0 G/DL OINC) Normal Hgb 12.1 LAB 17952141(L 36.0-48.0 % OINC) Normal Hct 36.6 LAB 48640866(L 11.5-14.5 % OINC) Normal RDW 13.7 LAB 09496572(L 27.0-31.0 pg OINC) Normal MCH 30.3 LAB 93025726(L 33.0-37.0 G/DL OINC) Normal MCHC 33.1 LAB 54378478(L 78.0-100.0 fL OINC) Normal MCV 91.5 LAB 58741805(L 7.4-11.0 fL OINC) Normal MPV 7.9 LAB 57141180(L 130-400 E3/mcL OINC) Normal Platelet 206 Performed By: #### [id number] #### PATY [facility] [id number] AUTO DIFF Collected: 11/17/2017 Status: F Source: [place] 10:28 PM [facility] REPOSITORY Order Comment: Order Added by Discern Expert. TYPE CODE TESTS RESULT OUT OF RANGE REFERENCE UNITS LAB 56395485(L 37.0-75.0 % OINC) Normal Neutro Auto 57.4 LAB 20830960(L 20.0-55.0 % OINC) Normal Lymph Auto 34.6 LAB 32415443(L 0.0-10.0 % OINC) Normal [place] Auto 7.2 LAB 19225622(L 0.0-11.0 % OINC) Normal Eos Auto 0.0 LAB 90346421(L 0.0-2.0 % OINC) Normal Basophil Auto 0.8 LAB 58798385(L 1.4-6.5 E3/mcL OINC) Normal Neutro 2.2 Absolute LAB 18669153(L 1.2-3.4 E3/mcL OINC) Normal Lymph Absolute 1.3 LAB 61109683(L 0.0-0.7 E3/mcL OINC) Normal [place] Absolute 0.3 LAB 64976838(L 0.0-0.7 E3/mcL OINC) Normal Eos Absolute 0.0 LAB 92655322(L 0.0-0.2 E3/mcL OINC) Normal Basophil 0.0 Absolute Performed By: #### [id number] #### PATY [facility] [id number] CMP Collected: 11/17/2017 Status: F Source: [place] 10:28 PM [facility] REPOSITORY TYPE CODE TESTS RESULT OUT OF RANGE REFERENCE UNITS LAB [id number](L 70-99 mg/dL OINC) High Glucose Lvl 139 LAB 04333388(L 7-18 mg/dL OINC) High BUN 27 LAB [id number](LO 0.6-1.3 mg/dL INC) High Creatinine 1.9 LAB 55665013(L 8.4-10.2 mg/dL OINC) Calcium Normal Lvl 9.0 LAB 93576502(L 136-145 mEq/L OINC) Sodium Normal Lvl 139 LAB 10562566(L 3.5-5.1 mEq/L OINC) Normal Potassium Lvl 3.9 LAB 00505869(L 98-107 mEq/L OINC) Chloride Normal 106 LAB 61488927(L 24.0-30.0 mEq/L OINC) Low CO2 22.2 LAB 53388732(L 42-121 Int._Unit/ OINC) L Alk Phos Normal 47 LAB 63577402(L 0.2-1.0 mg/dL OINC) Bili Normal Total 0.8 LAB 38538430(L 3.2-5.0 G/DL OINC) Albumin Normal Lvl 4.3 LAB 43628425(L 6.4-8.3 G/DL OINC) Total Normal Protein 6.9 LAB 05856907(L 10-40 Int._Unit/ OINC) L ALT Normal 23 LAB 47216197(L 10-42 Int._Unit/ OINC) L AST Normal 21 LAB 10162256(L 5.4-30.0 ratio OINC) Normal BUN/Creat Ratio 14.2 LAB 03580660(L 2.0-4.0 G/DL OINC) Globulin Normal 2.6 LAB 96376905(L 1.1-1.9 ratio OINC) A/G Normal Ratio 1.7 Performed By: #### [id number] #### [facility]Y [facility] [address] [place] [address] EGFR Collected: 11/17/2017 Status: F Source: [place] 10:28 PM [facility] REPOSITORY Order Comment: Order added by Discern Expert. TYPE CODE TESTS RESULT OUT OF RANGE REFERENCE UNITS LAB 04648133(LO mL/min/1.73 INC) m2 Normal eGFR 29 LAB 40798214(LO mL/min/1.73 INC) m2 Normal eGFR AA 35 Performed By: #### [id number] #### PATY [employer] [address] [place] [address] CT ABDOMEN/PELVIS W/O Observed: 11/17/2017 Status: F Source: [place] CONTRAST 9:55 PM [facility] REPOSITORY Exam Date/Time: 11/17/2017 22:07 EDT Reason for Exam: Pain Report STUDY: CT Abdomen/Pelvis w/o Contrast; 11/17/2017 10:07 pm INDICATION: Pain. Pain COMPARISON: No comparison available ACCESSION NUMBER(S): [id number] ORDERING CLINICIAN: Wade Heart TECHNIQUE: CT of the abdomen and pelvis was performed. Contiguous axial images were obtained at 3 mm slice thickness through the abdomen and pelvis. Coronal and sagittal reconstructions at 3 mm slice thickness were performed. No contrast was administered FINDINGS: LOWER CHEST: The heart is normal in size without pericardial effusion. The lung bases are clear. ABDOMEN: LIVER: The liver is normal in size. No mass lesions. BILE DUCTS: No intra or extrahepatic biliary dilatation. GALLBLADDER: The gallbladder is not seen.. PANCREAS: Normal in size without evidence for mass lesions. No surrounding inflammatory change SPLEEN: Normal in size. No mass lesions ADRENAL GLANDS: Normal in size. No mass lesions KIDNEYS AND URETERS: The kidneys are normal in size. There is a 6 and a 5 mm left renal cortical stone Exam Date/Time: 11/17/2017 22:07 EDT Report PELVIS: BLADDER: Distended without wall thickening or calculi REPRODUCTIVE ORGANS: The uterus is surgically absent. BOWEL: There is mild thickening of the sigmoid colon versus incomplete distention.. There is no free fluid or free air. The appendix is normal. VESSELS: There is no evidence for abdominal aortic aneurysm PERITONEUM/RETROPERITONEUM/LYMPH NODES: No retroperitoneal mass lesions or lymphadenopathy. ABDOMINAL WALL: The abdominal wall soft tissues appear normal. BONES: No suspicious osseous lesions are identified. No fracture. IMPRESSION: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 Allergy/801288771 tape/P760626358(RX Community (SNOMED CT) NORM) Hospital Repository Drug cefpodoxime/N95463 Rash Unknown [place] 8 Allergy/193919001 3727(RXNORM) [facility] (SNOMED CT) Hospital Repository Drug diclofenac/B330209 Rash Unknown [place] 8 Allergy/328490498 409(RXNORM) [facility] (SNOMED CT) Hospital Repository Drug levofloxacin/F0060 redness,rash Unknown [place] 8 Allergy/882439177 62059(RXNORM) [facility] (SNOMED CT) Hospital Repository Drug latex/I857718999(R Rash Unknown [place] 8 Allergy/040472508 XNORM) [facility] (SNOMED CT) Hospital Repository Miscellaneous alvogen Rash Unknown [place] 8 Allergy/279141369 [facility] (SNOMED CT) Hospital Repository DRUG NITROFURANTOIN RASH [place] 6 INGREDI/453160210 Clinic Main (SNOMED CT) [place] Repository DRUG PREGABALIN RASH [place] 6 INGREDI/101288210 Clinic [facility] (SNOMED CT) [place] Repository DRUG VANCOMYCIN RASH [place] 6 INGREDI/625156052 Clinic [facility] (SNOMED CT) [place] Repository DRUG GABAPENTIN RASH [place] 6 INGREDI/602602854 Clinic Main (SNOMED CT) [place] Repository DRUG PREDNISONE SHORTNESS OF [place] 6 INGREDI/732066427 Clinic Main (SNOMED CT) [place] Repository Drug PENICILLINS RASH [place] 6 Class/981317333(S Clinic Main NOMED CT) [place] Repository Drug SALICYLATES OTHER: SEE C [place] 6 Class/450849316(S Clinic Main NOMED CT) [place] Repository Drug/843748263(SN nitrofurantoin . Gnosticism OMED CT) [facility] Repository Drug/728344180(SN vancomycin . Gnosticism OMED CT) [facility] Repository Drug/321410940(SN aspirin . Gnostic[facility] OMED CT) [facility] Repository Drug/104808853(SN gabapentin swells [facility] OMED CT) [facility] Repository Drug/597645285(SN penicillins 287127620 Severe [facility]ostic[facility] OMED CT) [facility] Repository Drug/098023968(SN predniSONE [facility] OMED CT) [facility] Repository Drug/479330194(SN pregabalin . [facility]ostic[facility] OMED CT) [facility] Repository Drug/542415998(SN Benadryl [facility] OMED CT) [facility] Repository Drug/252958798(SN Dilantin 750928861 [facility] OMED [facility]) [facility] Repository Drug/419085297(SN Tylenol with [facility]ostic[facility] OMED CT) Codeine #3 [facility] Repository Drug/141928775(SN Aspirin Adult Low 487184051 [facility] OMED CT) Strength [facility] Repository ENCOUNTERS ENCOUNTERS ADMIT/DISCHARGE ACCOUNT NUMBER ADMITTING ENCOUNTER LOCATION SOURCE CLASS 01/28/[id number] [facility] ding:LABSPEC Repository 01/05/2018/01/09/20 [id number] DaphnieApolinar Inpatient [address] ding:YK0Rjna Repository : MU972Dzr: 1 01/05/2018 [id number] Apolinar Eller Ambulatory BMSBuilding: [place] Seferino BMS.[facility] Repository 01/05/2018 [id number] [facility] Apolinar Ambulatory BMSBuilding: [place] Seferino BMS.[facility] Repository 01/05/2018 [id number] [facility] Apolinar Ambulatory BMSBuilding: [place] Seferino BMS.[facility] Repository 01/05/2018 [id number] [facility] Apolinar Ambulatory BMSBuilding: [place] Seferino BMS.[facility] Repository 01/05/2018 [id number] Apolinar Eller Ambulatory BMSBuilding: [place] Seferino BMS.[facility] Repository 01/04/2018 [id number] Apolinar Eller Ambulatory BMSBuilding: [place] Seferino BMS.[facility] Repository 01/04/2018 [id number] Apolinar Eller Ambulatory BMSBuilding: [place] Seferino BMS.[facility] Repository 01/01/2018/01/02/20 [id number] Ambulatory [address] ding:SDC Repository 12/24/[id number] [facility] ding:CT Repository 12/17/[id number] [facility] ding:LABSPEC Repository 12/14/2017/12/15/[id number] ding:CD:[facility] 576297 Repository 12/10/2017/12/12/19 [id number] Ambulatory [address] Repository 12/07/2017/12/08/19 [id number] Juan J[address] ding:[facility] Repository 12/07/2017 [id number] Ambulatory [address] [place] [address] Repository 11/30/2017 [id number] [facility] ding:LABSPEC Repository 11/17/2017/11/19/19 [id number] Rings, Emergency [address] ding: Health System EDRoom: WR Repository 11/17/2017 [id number] Ambulatory [address] [place] [address] Repository 11/16/2017/11/17/[id number] :[facility] Repository 10/22/2017/10/23/[id number] ding:.[facility] DEP Repository 10/22/2017 [id number] Ambulatory [address] [place] [address] Repository 10/19/2017/10/20/[id number] :[facility] Repository 10/19/2017/10/20/[id number] ding:[facility] Repository 10/19/2017/10/20/[id number] [facility] om: Room 5 10/19/2017 [id number] Ambulatory [address] [place] [facility] Repository 09/28/2017/09/29/19 [id number] Ambulatory [address] ding:AshFamP Repository racRoom: Room 3 09/17/2017/11/06/[id number] ding:CD:[address] [place] [address] System 013705 Repository 09/03/2017/09/04/19 [id number] Jonas Gautam [place] [address] [address] Braswell lding:O1E [place] [facility] Clancy DeptRoom: Hospitals O1E C5JYDme: Repository O1E O1ED03 08/30/2017/08/31/[id number] Jose Emergency [place] [address] Redd Zee lding:O1E [place] and Emergency Jessy DeptRoom: Hospitals O1E Z2IWBvi: Repository O1E O1ED04 08/27/2017/08/28/[id number] ding:[facility] BANEY Repository 08/27/2017 [id number] [facility] ding:AshFamP Repository rac 08/27/2017/08/28/[id number] ding:AshFamP Repository racRoom: Room 3 08/27/2017 [id number] Ambulatory [facility] [place] [facility] Repository 08/20/2017/08/21/19 [id number] Ambulatory [address] Repository 06/18/2017/08/03/[id number] ding:CD:[address] [place] [address] Repository 06/01/[id number] [facility] ding:LABSPEC Repository 05/04/2017/05/05/19 [id number] Abarca, Ambulatory [address] ding:Haily Repository racRoom: Room 1 04/27/2017/04/29/19 [id number] Ambulatory [address] Repository 04/23/2017/04/23/19 [id number] Ambulatory [address] ding:AshFamP Repository rac 03/06/2017/03/06/[id number] Garcia Emergency [place] [address] Dyan S lding:O1E [place] and Emergency Clancy DeptRoom: Hospitals O1E I2ZLBau: Repository O1E O1ED04 PAYERS PAYERS ENCOUNTER GUARANTOR PAYER SUBSCRIBER SOURCE 01/28/2018 OANH L [id number] Primary KYLE KOPPDOB: [place] DANIEL Insurance:ANTHEMPolic [id number] [place] Number: Hospital [address]Kgo: 419 [id number] Repository [phone] () Date:1288-81-23WX [address] [place] [address] 894[address]CN: 01/28/2018 Secondary OANH L [place] Insurance:MEDICARE KOPPDOB: Community PART A olicy [id number] Hospital Number: Repository [id number] Date:2018-01-28 01/28/2018 Tertiary NOT GIVENUNK [place] Insurance:SELF PAY [facility] Number: Effective Repository Date:2018-01-28 01/05/2018 OANH L [id number] Primary KYLE KOPPDOB: [place] DANIEL Insurance:ANTHEMPolic [id number] [place] Number: Hospital [address]Nda: (419 [id number] Repository [phone] () Date:9000-33-53IR [address] [place] [address] 83890QA: 01/05/2018 Secondary OANH L [place]ina Insurance:MEDICARE KOPPDOB: Community PART A BPolicy [id number] Hospital Number: Repository [id number] Date:2018-01-04 01/05/2018 Tertiary NOT GIVENUNK [place] Insurance:SELF PAY Community INSURANCEPolicy Hospital Number: Effective Repository Date:2018-01-04 01/05/2018 OANH L [id number] Primary KYLE KOPPDOB: [place] DANIEL Insurance:ANTHEMPolic [id number] [facility] [place] Number: Hospital [address]Mzz: (419) [id number] Repository [phone] () Date:9866-18-87ZF [address] [place] [address] 06946KC: 01/05/2018 Secondary OANH L [place] Insurance:MEDICARE KOPPDOB: Community PART A [facility] [id number] Hospital Number: Repository [id number] Date:2018-01-04 01/05/2018 Tertiary NOT GIVENUNK [place] Insurance:SELF PAY [facility] Number: Effective Repository Date:2018-01-05 01/05/2018 OANH L [id number] Primary KYLE KOPPDOB: [place] DANIEL Insurance:ANTHEMPolic [id number] [place] Number: Hospital [id number]: (419) [id number] Repository [phone] () Date:2293-90-08YL [address] [place] [address] 76606ET: 01/05/2018 Secondary OANH L [place] Insurance:MEDICARE KOPPDOB: Community PART A olic [id number] Hospital Number: Repository [id number] Date:2018-01-04 01/05/2018 Tertiary NOT GIVENUNK [place] Insurance:SELF PAY [facility] Hospital Number: Effective Repository Date:2018-01-05 01/05/2018 OANH L [id number] Primary KYLE KOPPDOB: [place] DANIEL [facility] [id number] [place] Number: Hospital [address]Dhy: (419) [id number] Repository [phone] () Date:9031-89-56RG [address] [place] [address] 27442FH: 01/05/2018 Secondary OANH L [place] Insurance:MEDICARE KOPPDOB: Community PART A BPolicy [id number] Hospital Number: Repository [id number] Date:2018-01-04 01/05/2018 Tertiary NOT GIVENUNK [place] Insurance:SELF PAY [facility] Number: Effective Repository Date:2018-01-05 01/05/2018 OANH L [id number] Primary KYLE KOPPDOB: [place] DANIEL Insurance:ANTHEMPolic [id number] [place] Number: Hospital [id number]: (419) [id number] Repository [phone] () Date:9482-20-74AO [address] [place] [address] 80088DU: 01/05/2018 Secondary OANH L [place] Insurance:MEDICARE KOPPDOB: Community PART A [facility] [id number] Hospital Number: Repository [id number] Date:2018-01-04 01/05/2018 Tertiary NOT GIVENUNK [place] Insurance:SELF PAY [facility] Number: Effective Repository Date:2018-01-05 01/05/2018 OANH L [id number] Primary KYLE KOPPDOB: [place] DANIEL Insurance:ANTHEMPolic [id number] [place] Number: Hospital 003[address]Qfj: (419) [id number] Repository [phone] () Date:1493-95-92JJ [address] [place] [address] 49336CO: 01/05/2018 Secondary OANH L [place] Insurance:MEDICARE KOPPDOB: Community PART A [facility] [id number] Hospital Number: Repository [id number] Date:2018-01-04 01/05/2018 Tertiary NOT GIVENUNK [place] Insurance:SELF PAY [facility] Number: Effective Repository Date:2018-01-05 01/04/2018 OANH L [id number] Primary KYLE KOPPDOB: [place] DANIEL Insurance:ANTHEMPolic [id number] [place] Number: Hospital [id number]: (419) [id number] Repository [phone] () Date:9866-47-51DU [address] [place] [address] 45246NX: 01/04/2018 Secondary OANH L [place] Insurance:MEDICARE KOPPDOB: Community PART A BPolicy [id number] Hospital Number: Repository [id number] Date:2018-01-04 01/04/2018 Tertiary NOT GIVENUNK [place] Insurance:SELF PAY [facility] Number: Effective Repository Date:2018-01-04 01/04/2018 OANH L [id number] Primary KYLE KOPPDOB: [place] DANIEL Insurance:ANTHEMPolic [id number] [place] Number: Hospital [address]Kvg: (419 [id number] Repository [phone] () Date:2448-03-80CA [id number] [place] [address] 07279MG: 01/04/2018 Secondary OANH L [place] Insurance:MEDICARE KOPPDOB: Community PART A olicy [id number] Hospital Number: Repository [id number] Date:2018-01-04 01/04/2018 Tertiary NOT GIVENUNK [place] Insurance:SELF PAY [facility] Number: Effective Repository Date:2018-01-04 01/01/2018 OANH L [id number] Primary KYLE KOPPDOB: [place] DANIEL Insurance:ANTHEMPolic [id number] [place] Number: Hospital [id number]: (419) [id number] Repository [phone] () Date:1666-30-03WV [address] [place] [address] 38839QN: 01/01/2018 Secondary OANH L [place] Insurance:MEDICARE KOPPDOB: Community PART A BPolicy [id number] Hospital Number: Repository [id number] Date:2017-12-21 01/01/2018 Tertiary NOT GIVENUNK [place] Insurance:SELF PAY [facility] Number: Effective Repository Date:2017-12-21 12/24/2017 OANH L [id number] Primary KYLE KOPPDOB: [place] DANIEL Insurance:ANTHEMPolic [id number] [place] Number: Hospital [id number]: (419 [id number] Repository [phone] () Date:8181-40-54KW [address] [place] [address] 07331PR: 12/24/2017 Secondary OANH L [place] Insurance:MEDICARE KOPPDOB: Community PART A olicy [id number] Hospital Number: Repository [id number] Date:2017-12-18 12/24/2017 Tertiary NOT GIVENUNK [place] Insurance:SELF PAY [facility] Number: Effective Repository Date:2017-12-18 12/17/2017 OANH L [id number] Primary KYLE KOPPDOB: [place] DANIEL Insurance:ANTHEMPolic [id number] [place] Number: Hospital [id number]: (419 [id number] Repository [phone] () Date:6350-02-45YC [address] [place] [address] 06940CP: 12/17/2017 Secondary OANH L [place] Insurance:MEDICARE KOPPDOB: Community PART A [facility] [id number] Hospital Number: Repository [id number] Date:2017-12-17 12/17/2017 Tertiary NOT GIVENUNK [place] Insurance:SELF PAY [facility] Number: Effective Repository Date:2017-12-17 12/07/2017 OANH L Primary KYLE D Gnosticism KOPPDOB: Insurance:ANTHEMPolic KOPPDOB: [facility] y Number: Effective [id number] System DANIEL Date:2017-12-07 - DANIEL Repository [place], [place] 5314-37-05[place]u [place] [address]Kpf: Name:[facility]re [facility] [address]Fte: [address] [place] [address] (HP) [phone]: [phone] () [phone] () 12/07/2017 Secondary OANH L Gnosticism Insurance:MedicarePol KOPPDOB: [facility] icy Number: Effective [id number] System Date:2017-12-07 - DANIEL Repository [id number] Name:CD:[id number] [address] [address]Gxk: [address]NEOBHACBNQSIBLEY, [place] [address]PM: [phone]) (HP) [phone] () 12/07/2017 OANH KODOB: Primary [facility]: [place] Insurance:MedicarePol [id number] [place] [address] icy Number: [place], [place] [id number], [place] [id number]: Date:Plan Name:[facility] [id number]: A (VI) (HP) 12/07/2017 Secondary OANH ELIJAHDOB: University Insurance:MedicarePol [id number] Hospitals icy Number: DANIEL Repository [id number] [place] Date:Plan Name:[facility] [id number]: B () 12/07/2017 Tertiary KYLE NAVADOB: [place] Insurance:[facility] [id number] [facility] y Number: Repository [id number] Date:Plan Name:Health 11/30/2017 Oanh L [id number] Primary Kyle NavalesterDOB[facility] [id number] Number: Hospital [address]Wga: 419) [id number] Repository [phone] () Date:0690-10-79CR [address]IVMUWPM, [place] [address]TL: 11/30/2017 Secondary Oanh L [place] Insurance:MEDICARE [facility] PART A [facility] [id number] Hospital Number: Repository [id number] Date:2017-11-30 11/30/2017 Tertiary NOT GIVENUNK [place] Insurance:SELF PAY [facility] Number: Effective Repository Date:2017-11-30 11/17/2017 OANH L Primary KYLE Davies KOPPDOB: Insurance:[facility]: [facility] y Number: Effective [id number] System HYDRO Date:2017-11-17 - DANIEL [place] [id number] [place] [address]Szq: Name:Dre [address]Tel: [address]WSTQTWK, [place] (HP) [address]LS: [phone]) () [phone] (WP) 11/17/2017 Secondary OANH Davies Insurance:MedicarePol KOPPDOB: [facility] icy Number: Effective [id number] System Date:2017-11-17 - HYDRO Repository [id number] [place] Name:CD:[id number] [address] [address]Jsl: [address]2315UQJHNIYDYY, [place] [address]VD: [phone] () [phone] () 11/17/2017 OANH KOPPDOB: [facility] [place] Insurance:[facility] [id number] [facility] y Number: [place], [place] [id number]: Date:Plan Name:Health () 11/17/2017 Secondary OANH KOPPDOB: [place] Insurance:MedicarePol [id number] Hospitals icy Number: HYDRO Repository [id number] [place] Date:Plan Name:[facility] [id number]: A (HP) 11/17/2017 Tertiary OANH KOPPDOB: [place] Insurance:MedicarePol [id number] Hospitals icy Number: HYDRO Repository [id number] [place] Date:Plan Name:[facility] [id number]: B () 11/16/2017 OANH L Primary KYLE Davies KOPPDOB: Insurance:1500 KOPPDOB: [facility] ANTHEMPolicy Number: [id number] System DANIEL Effective DANIEL [facility]ository [facility] [place] Date:2017-10-19 [place] [address]Rhp: [id number] [address]Fqo: Name:CD:[id number] O () [address]NX[address], [place] ()Tel: [phone]) [phone]: (WP) [phone] 11/16/2017 Secondary OANH L Gnosticism Insurance:1500 KOPPDOB: [facility] [id number] System PRIMARYPolicy Number: MARÍA Repository Effective [place] Date:2017-10-19 - [address]Mgx: [id number] Name:CD:[id number] O ()Tel: (000) BOX 51800SEYHQRLOH, 000-0000 () [place] [address]RL: 10/22/2017 OANH L Primary KYLE Davies KOPPDOB: Insurance:ANTHEMPolic KODOB: [facility] y Number: Effective [id number] System DANIEL Date:2017-10-21 - DANIEL [place] 6068-48-18[place]fr [place] [address]Ect: Name:Dre [address] [address]Cpp: [id number], [place] (HP) [address]JK: [phone]) (HP) [phone] (WP) 10/22/2017 Secondary OANH L Gnosticism Insurance:MedicarePol KOPPDOB: [facility] icy Number: Effective [id number] System Date:2017-10-21 - DANIEL Repository [id number] [place], [place] Name:CD:[id number] [address]Vdm: [id number], [place] [id number]: [phone]) (HP) [phone] (WP) 10/22/2017 OANH KOPPDOB: Primary [facility] [place] Insurance:[id number] y Number: Repository [place] [id number] [id number]: Date:Plan Name:Health () 10/22/2017 Secondary OANH KODOB: [place] Insurance:MedicarePol [id number] Hospitals icy Number: [facility] [id number] [place] Date:Plan Name:[facility] [id number]: A () 10/22/2017 Tertiary OANH KODOB: [place] Insurance:MedicarePol [id number] Hospitals icy Number: [facility] [id number] [place] Date:Plan Name:[facility] [id number]: B () 10/19/2017 OANH L [facility] KODOB: [facility] y Number: Effective [id number] [place] [address] Date:2017-09-21 - [place], [place] 9817-16-90[place]zbh[place] [id number]: Name:Dre Noriega [address] [address]Plh: [id number], [place] (HP) [phone]: [phone]) (HP) [phone] (WP) 10/19/2017 Secondary OANH Davies Insurance:MedicarePol [facility] icy Number: Effective [id number] System Date:2017-09-21 - DANIEL Repository 5119-72-36Fhfc [place] Name:CD:[id number] [address]Yum: 134461RXHFLEFIESSIBLEY, [place] [id number]: [phone]) (HP) [phone] (WP) 10/19/2017 OANH L Primary KYLE Willett Gnosticism KODOB: Insurance:ANTHEMPolic [facility] y Number: Effective [id number] System DANIEL Date:2017-10-19 - DANIEL Repository [place], [place] 6509-92-01Uthe [place] [address]Mwi: Name:Dre NoriegaDILIA [address] [address]Xzo: [id number], [place] (HP) [phone]: [phone]) (HP) 000-0000 (WP) 10/19/2017 Secondary OANH L Gnosticism Insurance:MedicarePol KODOB: [facility] icy Number: Effective [id number] System Date:2017-10-19 - DANIEL Repository 1163-49-71Bzpu [place] Name:CD:[id number] [address]Zzt: [id number], [place] [id number]: [phone]) (HP) [phone] (WP) 10/19/2017 OANH L Primary KYLE Willett Gnosticism KODOB: Insurance:[facility] [place] KODOB: [facility] ANTHEMPolicy Number: [id number] System HYDRO Effective [place], [place] Date:2017-10-19 - [place] [address]Bus: [id number] [address]Ujh: Name:CD:[id number] O (HP) [address] [address]SKVVFTO, [place] (HP)Tel: 000) [address]WP: (WP) [phone] 10/19/2017 Secondary OANH L Gnosticism Insurance:1500 KOPPDOB: [facility] MEDICARE [id number] System PRIMARYPolicy Number: MARÍA Repository Effective [place] Date:2017-10-19Tel: [id number] Name:[id number] O (HP)Tel: (000) [address] [address]CUFWHZVPY, 000-0000 (WP) [place] [address]XJ: 09/28/2017 OANH L Primary KYLE Davies KOPPDOB: Insurance:1500 KOPPDOB: [facility] ANTHEMPolicy Number: [id number] System DANIEL Effective MARÍA Repository [place] Date:2017-09-28 [place] [address]Eam: [id number] [address]Zyr: Name:CD:[id number] O (HP) [address]PQXZEDH, [place] ()Tel: [phone]: (WP) [phone] 09/28/2017 Secondary OANH L Gnosticism Insurance:1500 KOPPDOB: [facility] MEDICARE [id number] System PRIMARYPolicy Number: MAR[place] Repository Effective [place], [place] Date:2017-09-28Tel: [id number] Name:[id number] O (HP)Tel: (000) [address] [address]AGYPSEBCW, 000-0000 (WP) [place] [address]DZ: 09/17/2017 OANH L Primary KYLE Davies KOPPDOB: Insurance:ANTHEMPolic KODOB: [facility] y Number: Effective [id number] System DANIEL Date:2017-09-16 - DANIEL [place] 5502-52-10[place]uBen[place] [address]Exb: Name:Dre MCKEON [address]Sqd: [id number], [place] (HP) [address]TS: [phone]) (HP) [phone] (WP) 09/17/2017 Secondary OANH L Gnosticism Insurance:MedicarePol KOPPDOB: [facility] icy Number: Effective [id number] System Date:2017-09-16 - DANIEL Repository 0292-09-01[place]ws[place], [place] Name:CD:[id number] [place] [id number]: [id number], [place] [id number]: [phone]) (HP) [phone] (WP) 09/03/2017 Primary [facility] Insurance:[address] 332[facility] Number: [facility] [id number] [place], [place] Repository Date:Plan Name:[place] [address] 09/03/2017 Secondary [facility] Insurance:MedicarePol KOPPDOB: [place] and icy Number: [id number] [facility] [id number] DANIEL Repository Date:Plan [facility] [place] [address]Bbg: () 09/03/2017 Tertiary OANH L [facility] Insurance:MedicarePol KOPPDOB: [place] and icy Number: [id number] [facility] [id number] DANIEL Repository Date:Plan Name[facility] [place] B [address]Qli: () 08/30/2017 Primary [facility] Insurance:[facility] [id number] and 332[facility] Number: [facility] [id number] [place] Repository Date:Plan Name:[place] [address] 08/30/2017 Secondary OANH L [facility] Insurance:MedicarePol KOPPDOB: [place] and icy Number: [id number] [facility] [id number] DANIEL Repository Date:Plan Name:Era JUÁRE[place] A [address]Tpz: (HP) 08/30/2017 Tertiary OANH L [facility] Insurance:MedicarePol KODOB: [facility] icy Number: [id number] [facility] [id number] DANIEL Repository Date:Plan Name:Era JUÁREZ [place] B [address]Nhs: (HP) 08/27/2017 OANH L Primary KYLE D Gnosticism KOPPDOB: Insurance:ANTHEMPolic KODOB: [facility] y Number: Effective [id number] System DANIEL Date:2017-08-27 - DANIEL Repository [place] 8147-69-74[place] [address]Lfr: Name:Dre [facility] MIKE [address]Vap: [id number], [place] (HP) [address]GZ: (800) (HP) [phone] (WP) 08/27/2017 Secondary OANH L Gnosticism Insurance:MedicarePol KODOB: [facility] icy Number: Effective [id number] System Date:2017-08-27 - DANIEL Repository 5051-09-79Fmnh [place] Name:CD:[id number] [address] [address]Lhd: 216965QWZOGAPPHN, [place] [id number]: [phone]) (HP) [phone] (WP) 08/27/2017 OANH L Primary KYLE Davise KODOB: Insurance:1500 KOPPDOB: [facility] ANTHEMPolicy Number: [id number] System DANIEL Effective DANIEL Repository [place], [place] Date:2017-08-27 [place] [address]Tpk: [id number] [address]Viq: Name:CD:[id number] O (HP) [address] [place] [address] (HP)Tel: [phone]: (WP) [phone] 08/27/2017 Secondary OANH Davies Insurance:1500 KOPPDOB: [facility] MEDICARE [id number] System PRIMARYPolicy Number: DANIEL Repository Effective [place] Date:2017-08-27Tel: 9977-78-14Qrshlan Name:CD:[id number] O (HP)Tel: (000) [address] [address]RXWZVKIBF, 000-0000 (WP) [place] [address]DX: 08/27/2017 [facility] KODOB: Insurance:1500 KODOB: [facility] ANTHEMPolicy Number: [id number] System DANIEL Effective DANIEL Repository [place] Date:2017-05-04 [place] [address]Nul: 2021-05-46Omsq [address]Jyk: Name:CD:[id number] O (HP) [address]EYZNMUD [place] ()Tel: [phone]) [phone]: (WP) [phone] 08/27/2017 Secondary OANH Dee Gnosticism Insurance:1500 KOPPDOB: [facility] MEDICARE [id number] System PRIMARYPolicy Number: DANIEL Repository Effective [place] Date:2017-05-0493071-6[address]Ixj: 5188-91-46Ayhvlan Name:CD:[id number] O (HP)Tel: (000) [address] [address]GKBPVCZAI, 000-0000 (WP) [place] [address]QU: 08/27/2017 OANH [facility]: [facility]: [place] Insurance:MedicarePol [id number] [place] [address] icy Number: DANIEL Repository [place], [place] [id number] [place] [id number]: Date:Plan Name:[facility] [id number]: A (OK) (HP) 08/27/2017 Secondary OANH KODOB: [employer] Insurance:MedicarePol [id number] Hospitals icy Number: HYDRO Repository [id number] [place] Date:Plan Name:[facility] [id number]: B (HP) 08/27/2017 Tertiary KYLE KODOB: [place] Insurance:[facility] [id number] [facility] y Number: Repository [id number] Date:Plan Name:Health 06/18/2017 OANH L Primary KYLE Davies KODOB: [facility] y Number: Effective [id number] [place] [address] Date:2017-03-09 - [place], [place] 5455-84-61TswsBennington, [place] [id number]: Name:Dre [facility]WE[facility] [address]Odq: [id number], [place] (HP) [address]ZL: (800) (HP) 000-0000 (WP) 06/18/2017 Secondary OANH Davies Insurance:MedicarePol KOPPDOB: [facility] icy Number: Effective [id number] System Date:2017-06-11 - HYDRO Repository 9013-50-49VosvBen[place], [place] Name::[id number] [id number]: [id number], [place] [id number]: (800) (HP) [phone] (WP) 06/01/2017 Oanh L [id number] Primary Kyle MonicaB: Valentina Esmond Insurance:[facility] [id number], [place] y Number: Hospital [address]Brv: 419 [id number] Repository [phone] (HP) Date:5712-91-32KL [address] [place] [address] 90003QJ: 06/01/2017 Secondary Oanh L Valentina Insurance:MEDICARE KoppDOB: [facility] PART A BPolicy [id number] Hospital Number: Repository [id number] Date:2017-06-01 06/01/2017 Tertiary NOT GIVENUNK [place] Insurance:SELF PAY [facility] Number: Effective Repository Date:2017-06-01 05/04/2017 OANH L Primary KYLE D Gnosticism KODOB: Insurance:1500 KODOB: [facility] ANTHEMPolicy Number: [id number] System DANIEL Effective DANIEL Repository [place] Date:2017-05-04 [place] [id number]: 5355-84-15Rfio [address]Cod: Name:CD:[id number] O () [address] [place] [address] ()Tel: [phone]: [phone]) [phone] 05/04/2017 Secondary OANH L Gnostic[place] Insurance:1500 KOPPDOB: [facility] MEDICARE [id number] System PRIMARYPolicy Number: DANIEL Repository Effective [place] Date:2017-05-04 [id number]: 1778-24-99Onyd Name:CD:[id number] O ()Tel: 000) [address] [address]SALRIUYAM, 000-0000 (WP) [place] [address]TN: 04/23/2017 OANH L Primary KYLE Davies KODOB: Insurance:1500 KOPPDOB: [facility] ANTHEMPolicy Number: [id number] System DANIEL Effective DANIEL Repository [place] Date:2017-01-28 [place] [id number]: 5037-40-72Hsvg [address]Srm: Name:[id number] O (HP) [address]MFUMJDH [place] (HP)Tel: (109) [phone]: (WP) [phone] 04/23/2017 Secondary OANH L [place] Insurance:1500 KOPPDOB: [facility] MEDICARE [id number] System PRIMARYPolicy Number: HYDRO Repository Effective [place] Date:2017-01-28 [id number]: [id number] Name:CD:[id number] O (HP)Tel: (000) [address] [address]WCDFCAOJU, 000-0000 (WP) [place] [address]JC: 03/06/2017 Primary [facility] Insurance:[place] [address]Policy Number: [facility] [id number] Repository Date:Plan Name:Health 03/06/2017 Secondary OANH L [facility] Insurance:MedicarePol KOPPDOB: [place] and y Number: [id number] [facility] [id number] [place] Repository Date:Plan Name:[place] A [address]Fvh: () 03/06/2017 Tertiary OANH L [facility] Insurance:MedicarePol KOPPDOB: [place] and icy Number: [id number] [facility] [id number] [place] Repository Date:Plan Name:Era [place]ÍAJAS[place] B [address]Xvw: (HP)
== END ==
PROVIDERS: Family Provider Family Medicine; PCP Family Medicine; Referring Provider Urology; Visit Provider Urology
DX: R82.998 Other abnormal findings in urine (principal)
CPT/HCPCS: 87086; 87088; 87186

== ENCOUNTER 2024-07-13 06:00 | Day surgery (SDC) | payer BC, MEDICARE, SELFPAY ==
[2024-07-13] VITALS (8 sets, daily range): BP systolic 103–133; BP diastolic 65–95; PULSE 54–70; RESP 16–20; TEMP 36.4–36.7; O2SAT 95–100; BMI 39.2
[2024-07-13] MEDS: Lactated Ringers 1,000 ML 15 ML IV (06:38)
--- NOTE | 2024-07-13 06:52 | PCM.HP.STD ---
HPI - General General Date of Service: 07/13/24 Chief Complaint: Urge incontinence HPI Narrative ALLI PABLO, is a 48 F who presents for placement of InterStim therapy, she had a successful percutaneous nerve evaluation trial she had greater than 50% improvement in her symptoms after a trial was done. She now presents for placement of InterStim therapy she understands that the device could fail it could run out of batteries a could stop working it could require reprogramming it could require removal. After the risk and benefits were discussed with the patient she wishes to proceed as it improved her urinary symptoms greatly. [facility] Medical History (Updated 07/04/24 @ 10:52 by Tamra Leblanc) Wears dentures Post-menopausal Marijuana use Rheumatoid arthritis Arthritis History of renal disease Blood disorder Seizures Non-smoker Asthma Leg cramps Home Medications ?Medication ?Instructions ?Recorded ?Last Taken ?Type Coconut Oil 2,000 mg PO DAILY 12/28/17 01/01/18 History ondansetron 4 mg disintegrating 4 mg PO TID PRN Nausea 01/04/18 01/04/18 History tablet (Zofran ODT) omalizumab 150 mg/mL subcutaneous 150 mg subcut .Q28 DAYS 07/04/24 Unknown History syringe (Xolair) vitamin B complex (Complex B-100 1 tab PO DAILY 07/04/24 Unknown History tablet,extended release) Allergy/AdvReac Type Severity Reaction Status Date / Time adhesive tape Allergy Rash Verified 07/13/24 06:32 aspirin (ASA) Allergy Unknown Verified 07/13/24 06:32 cefpodoxime Allergy Rash Verified 07/13/24 06:32 ciprofloxacin Allergy Hives Verified 07/13/24 06:32 diclofenac Allergy Rash Verified 07/13/24 06:32 gabapentin (From Neurontin) Allergy Unknown Verified 07/13/24 06:32 levofloxacin (From Levaquin) Allergy redness,ananda Verified 07/13/24 06:32 h nitrofurantoin Allergy Unknown Verified 07/13/24 06:32 Penicillins Allergy Anaphylaxis Verified 07/13/24 06:32 prednisone Allergy Unknown Verified 07/13/24 06:32 pregabalin Allergy Unknown Verified 07/13/24 06:32 teriparatide Allergy Rash Verified 07/13/24 06:32 cephalexin (From Keflex) AdvReac Upset Verified 07/13/24 06:32 Stomach norfloxacin (From Noroxin) AdvReac Upset Verified 07/13/24 06:32 Stomach phenytoin (From Dilantin) AdvReac loss of Verified 07/13/24 06:32 balance Surgical History (Updated 07/04/24 @ 10:52 by Tamra Leblanc) Hx of hysterectomy Hx of foot surgery History of bone marrow biopsy History of transurethral resection of bladder tumor (TURBT) Social History Smoking Status: Never smoker Vital Signs Vital Signs Vital Signs: 07/13/24 06:34 07/13/24 06:37 Temperature 97.9 F Temperature Source Temporal Pulse Rate 70 Respiratory Rate 16 Respiratory Pattern Normal Blood Pressure 133/95 H Blood Pressure Mean 107 Blood Pressure Source Monitor Blood Pressure Position Semi-Fowlers Blood Pressure Location Left Arm Pulse Ox 100 Oxygen Delivery Method Room Air Weight Weight: 110.4 kg Body Mass Index (BMI) 39.2
--- NOTE | 2024-07-13 07:07 | PCM.PRE.AN2 ---
ASA Classification* ASA Classification ASA Classification: 3 Assessment & Plan Anesthesia* Anesthesia Assessment Anesthesia Assessment: Discussed sedation and/or anesthesia options, risks, benefits, and alternatives with patient/parents/legal guardian/POA. Questions invited. The patient/parents/legal guardian/POA seems to understand and agrees to proceed with anesthesia plan. Reviewed the physical assessment, medical history, allergy history and patient home medications list prior to surgery/procedure/anesthetic and documented any changes. Performed airway and anesthesia risk assessments. Anesthesia Type Anesthesia Type: General History Source History Obtained from:: Patient and Chart Anesthesia Focused Assessment* Temperature: 97.9 F Pulse Rate: 70 Blood Pressure: 133/95 Respiratory Rate: 16 Pulse Ox: 100 Oxygen Delivery Method: Room Air Airway Assessment Mouth opens: >3 cm Mallampati Score: I Teeth Condition: Dentures (Patient has full upper and lower dentures. They will come out) Neck Range of motion (ROM): Full ROM Focused Labs Anesthesia Preop lab: CBC WBC 2.0 K/mm3 (4.4-11.0) L 01/08/18 06:50 01/08/18 RBC 3.17 M/mm3 (4.2-5.4) L 01/08/18 06:50 01/08/18 Hgb 9.6 g/dl (12.0-15.0) L 01/08/18 06:50 01/08/18 Hct 29.6 % (37-47) L 01/08/18 06:50 01/08/18 Plt Count 208 K/mm3 (150-450) 01/08/18 06:50 01/08/18 CHEMISTRY Potassium 3.7 mmol/L (3.5-5.1) 01/08/18 06:50 01/08/18 Sodium 144 mmol/L (136-145) 01/08/18 06:50 01/08/18 Magnesium 1.8 mg/dL (1.6-2.6) 01/07/18 09:03 01/07/18 BUN 6 mg/dL (7-18) L 01/08/18 06:50 01/08/18 Creatinine 0.94 mg/dL (0.55-1.02) 01/08/18 06:50 01/08/18 Glucose 80 mg/dL (74-106) 01/08/18 06:50 01/08/18 POC Glucose 101 mg/dL (70-110) 04/19/16 10:49 04/19/16 TSH 1.07 uIU/mL (0.358-3.74) 04/11/16 14:59 04/11/16 COAG PT 13.3 SECONDS (11.7-14.9) 01/01/18 12:36 01/01/18 Pre-Assessment Diagnosis/Proposed Procedure Planned Operative Procedure(s): Interstim Therapy 1 and 2 Anesthesia History 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 When Was Last Pacemaker Check QUESTION #4 FULL TEXT: You/Your Family Experience fever (hyperthermia) with Anesthesia Last Oral Intake Last Oral intake: Last Oral Intake NPO since 22:30 07/13/24 06:34 Meds taken in AM with sips of No 07/13/24 06:34 water? Meds patient instructed to take am of surgery PONV PONV - flight attendant inflight services: PONV - flight attendant inflight services Female Yes 07/04/24 10:53 HX of Motion Sickness No 07/04/24 10:53 HX of N/V After Surgery No 07/04/24 10:53 Non-Smoker Yes 07/04/24 10:53 Duration of Surgery greater No 07/04/24 10:53 than 60 minutes Number of Risk Factors 2 07/04/24 10:53 PONV Score Moderate Risk 07/04/24 10:53 Height & Weight Height & Weight: Anesthesia: Height & Weight Height 5 ft 6 in 07/13/24 06:34 Weight: 110.4 kg 07/13/24 06:34 Body Mass Index (BMI) 39.2 07/13/24 06:34 Respiratory Assessment Respiratory Assessment - flight attendant inflight services: Respiratory Tract Infection Hx - flight attendant inflight services Hx Respiratory Tract Infection No 07/04/24 10:53 STOP Sleep Apnea STOP Sleep Apnea - flight attendant inflight services: STOP Sleep Apnea - flight attendant inflight services Hx Hypertension No 07/04/24 10:53 Hx Sleep Apnea No 07/04/24 10:53 CPAP BIPAP Do you snore loudly (louder No 07/04/24 10:53 than talking or can be heard Do you often feel tired/ No 07/04/24 10:53 fatigued/ sleepy during daytime? Has anyone observed you stop No 07/04/24 10:53 breathing during sleep? STOP Results Negative 07/04/24 10:53 QUESTION #5 FULL TEXT : Do you snore loudly (louder than talking or can be heard through closed doors)? Tobacco Use History Tobacco Use History - flight attendant inflight services: Tobacco Use History - flight attendant inflight services Tobacco Use Smoking Status Never smoker 07/04/24 10:53 Hx Tobacco Use Yes 07/04/24 10:53 Years Smoking Packs Smoked per Day Smoking Cessation Date was within the last 15 years Hx Smoking Cessation Date Hx Smoking Cessation Counseling Hematologic Medial History Hematologic Hx - flight attendant inflight services: Hematologic Medical Hx - washing machine installer Hx of Blood Transfusion No 07/04/24 10:53 Hx of Transfusion in last 3 No 07/04/24 10:53 Months Date of Last Transfusion (if within last 3 months) Ever experience any problems No 07/04/24 10:53 with transfusion(s)? Specify any problems Hx of Preganancy in last 3 No 07/04/24 10:53 Months Nurse Filling Out Transfusion VCHRISTIN 07/04/24 10:53 & Questions: Date: 07/04/24 07/04/24 10:53 Time: 10:54 07/04/24 10:53 Patient unable to answer at this time (ie. confused, unrespo /Reproduction History /Reproductive History - flight attendant inflight services: /Reproductive Hx- flight attendant inflight services Hx Now Gestational Age (in weeks): EDC: Hx Hx Para Hx Section SAB Active Medications Active Medications: Current Medications Generic Name Dose Route Start Last Admin Trade Name Freq PRN Reason Stop Dose Admin Cefazolin Sodium 2 gm/ Sodium 110 mls @ 150 mls/hr 07/13/24 07:30 Chloride IV 07/13/24 08:13 INTRAOP ONE Lactated Ringer's 1,000 mls @ 15 mls/hr 07/13/24 06:15 07/13/24 06:38 IV 15 mls/hr .Q48H MARCIAL Administration PFSH Medical History Wears dentures Post-menopausal Marijuana use Rheumatoid arthritis Arthritis History of renal disease Blood disorder Seizures Non-smoker Asthma Leg cramps Home Medications ?Medication ?Instructions ?Recorded ?Last Taken ?Type Coconut Oil 2,000 mg PO DAILY 12/28/17 01/01/18 History ondansetron 4 mg disintegrating 4 mg PO TID PRN Nausea 01/04/18 01/04/18 History tablet (Zofran ODT) omalizumab 150 mg/mL subcutaneous 150 mg subcut .Q28 DAYS 07/04/24 Unknown History syringe (Xolair) vitamin B complex (Complex B-100 1 tab PO DAILY 07/04/24 Unknown History tablet,extended release) Allergy/AdvReac Type Severity Reaction Status Date / Time adhesive tape Allergy Rash Verified 07/13/24 06:32 aspirin (ASA) Allergy Unknown Verified 07/13/24 06:32 cefpodoxime Allergy Rash Verified 07/13/24 06:32 ciprofloxacin Allergy Hives Verified 07/13/24 06:32 diclofenac Allergy Rash Verified 07/13/24 06:32 gabapentin (From Neurontin) Allergy Unknown Verified 07/13/24 06:32 levofloxacin (From Levaquin) Allergy redness,ananda Verified 07/13/24 06:32 h nitrofurantoin Allergy Unknown Verified 07/13/24 06:32 Penicillins Allergy Anaphylaxis Verified 07/13/24 06:32 prednisone Allergy Unknown Verified 07/13/24 06:32 pregabalin Allergy Unknown Verified 07/13/24 06:32 teriparatide Allergy Rash Verified 07/13/24 06:32 cephalexin (From Keflex) AdvReac Upset Verified 07/13/24 06:32 Stomach norfloxacin (From Noroxin) AdvReac Upset Verified 07/13/24 06:32 Stomach phenytoin (From Dilantin) AdvReac loss of Verified 07/13/24 06:32 balance Surgical History Hx of hysterectomy Hx of foot surgery History of bone marrow biopsy History of transurethral resection of bladder tumor (TURBT) Social History Smoking Status: Never smoker Review of Systems (Anesthesia) ROS Narrative System reviewed and no additional complaints, except as documented. Physical Exam Resp clear to auscultation bilaterally
--- NOTE | 2024-07-13 07:30 | RAD_ITS ---
PROCEDURE: Intraoperative fluoroscopic services. 07/13/2024 REASON FOR EXAM: INTERSTEM 1 TECHNIQUE: Intraoperative fluoroscopic services provided. 9.78 mGy. 29 seconds of fluoroscopy. COMPARISON: None FINDINGS: Intraoperative fluoroscopic services provided for InterStim placement. RAD/Pelvis 1 or 2 Views IMPRESSION: Intraoperative fluoroscopic services provided for InterStim placement. The shauna ctrode tip is seen in the upper left hemipelvis. Reading Location: [facility]
[2024-07-13] MEDS: Cefazolin 2 GM in 0.9% Normal Saline (100mL Bag) 100 ML IV (07:40)
[2024-07-13] MEDS: Lidocaine 1% (20 ml mdv) 20 ML Vial (07:50)
--- NOTE | 2024-07-13 08:21 | DCINST_ITS ---
Discharge Instructions Diet Discharge Diet: No restrictions DC O2, CPAP, BIPAP needs Home O2 Discharge instructions: No Dressing / Incision Discharge Activity: Return to Normal Activity and May Not Drive (while taking narcotic pain medications.) Dressing / Incision Call your doctor if you observe: Fever of 101 or Higher Follow Up Care Please Follow Up With: Apolinar Eller MD When: Call [phone] for an appointment Test Results: Test results from this visit will be discussed in further detail at your follow- up appointment, if applicable. Discharge Plan Admission Primary Reason for Your Visit: interstim therapy Attending Provider: Apolinar Eller Primary Care Provider: Ulices Krishna Instructions Print Language: Macedonian Discharge Orders/Prescriptions Prescriptions: New oxycodone 5 mg tablet 5 mg PO Q6H PRN (Reason: pain) 7 Days Qty: 14 0RF No Action Coconut Oil 2,000 mg PO DAILY ondansetron [Zofran ODT] 4 MG tablet,disintegrating 4 mg PO TID PRN (Reason: Nausea) Complex B-100 Tablet Extended Release 1 tab PO DAILY Xolair 150 mg/mL syringe 150 mg SUBCUT .Q28 DAYS Patient Comments: [NO ORIGINAL SIG] Referrals / Follow Up: Apolinar Eller MD [Med Staff - Active Staff] - Ulices Krishna PA [Primary Care Provider] - Disposition Disposition (needs filled in before D/C Order can be placed): Home, Self Care
--- NOTE | 2024-07-13 08:22 | OP.PCM_ITS ---
Operative Report (Standard) Operative Information Date of Procedure: 07/13/24 Pre-Operative Diagnosis: Frequency urgency and urge incontinence Post-Operative Diagnosis: Same Surgery/Procedure Performed: Placement of stage I and stage II InterStim therapy cement finisher: No Type of Anesthesia: General RN Documented Start/Stop Times: Operation Date: 07/13/24 07:30 Case Time Into Pre-Op 07/13/24 06:07 Out of Pre-Op 07/13/24 07:21 Anesthesia Start 07/13/24 07:24 Into Room 07/13/24 07:24 Procedure Start 07/13/24 07:48 Procedure End 07/13/24 08:12 Anesthesia End 07/13/24 08:19 Out of Room 07/13/24 08:19 Procedure Start Time: 07:48 Procedure Stop Time: 08:19 Select all DRAINS/GRAFTS/IMPLANTS that apply: None Estimated Blood Loss: 2 Specimen collected: No Description of surgery: The patient presents to the operating room for placement of stage I and II therapy. In the preoperative setting she is failed medical management for the patient urge incontinence and severe frequency of urination, a voiding diary was reviewed. The patient understands these is no guarantees that in the future the therapy will keep working to the patient's satisfaction and its always possible and it may need to have a surgical revision, change in implant, possible revision or removal of implant. We also talk about the risks of pain with st imulation, bleeding and infection or any injury to nerves or bony structures and the tailbone area. After reviewing all this with the patient in the preoperative area she signed the consent form and we proceeded with stageI and II therapy implant. Patient was brought back to the operating room and placed supine on the table and then transferred to facedown the table and underwent sedation with comfort hugging a pillow. Patient's lower back was prepped and draped in usual sterile fashion, I then palpated the bony landmarks identify the tailbone the sacrum and the pocket area was identified where the semiconductor testing group leader would be implanced and also the lead. Fluoroscopy was brought in to identify the pelvis we identify the spinous processes of the pelvic bone we used a finder needle to lay across the spinous process to the approximate the location of the S3 foramen. I then identified the lateral borders of the foramen using the other spinal needle. Under this the skin was then marked and potential entrances were by approximation and bony landmarks using fluoroscopy. I then infiltrated the skin about 2 cm up above the approximation of the S3 foramen and then used the needle within the stage I InterStim kit to go straight down to the potential S3 foramen spot marching along the sacrum until the needle electrode dropped into what appeared to be the S3 foramen. Under fluoroscopy in AP and lateral veiw I confirmed that I had the lead in the S3 foramen, I then stimulated the needle and had good raya response and had toe flexion but no calf rotation, confirm placement of the lead in the S3 Foremen. I then placed the guide through the needle the stylette was removed and then the needle was removed over the guide an incision was made into the skin and then through the incision incision and over the guide I introduced the sheath I followed the sheath under fluoroscopy until the marker on the sheath was three fourths down from the anterior plate of the sacrum. Once this was in good position then the stylette was removed and through the sheath I then introduced the stage I InterStim stimulator lead, I then checked the lead for stimulation of raya and toe flexion at all 4 sites 0, 1, 2, 3 and had good response with raya and toe flexion and pleased with the placement of the lead. Under fluoroscopy I captured the placement the lead this was documented both in AP and lateral views. I then removed the stylette within the lead and then pulled back in the sheath of the deployed the tines on the lead to secure the lead and the sacrum and the S3 foramen. Another fluoroscopic check was done to make sure no movement of the lead. After this was confirmed then pocket was created in the patient's lateral side where the generator pocket would be placed after the pocket was created in the subcutaneous tissue then using the guide created in the kit the end of the lead was then transferred from the insertion site to the pocket site subcutaneously. Then the generator was opened and I made sure I cleaned the lead completely I attached the lead to the generator use the screwdriver provided in the kit to then secure the bolt secure the lead to the generator prior to doing this again checked the lead 0, 1, 2, 3 and there was still good stimulation at all sites. I then placed the lead into the generator and the generator was put into the pocket that was created. I made sure that the generator was placed with InterStim labeling side up and was oriented appropriately. I then checked for impedance using the rep and had the device checked in the impedance was normal with no abnormal impedance and all leads in all 4-lead sites were programmed and responded normally. The generator was then programmed to ensure good proper stimulation of the InterStim device this was done in the operating room, after complex programming was completed we finished with fluoroscopy I then closed the insertion site with subcuticular stitches and Steri-Strips and bandages and then closed the pocket with subcuticular stitches and Steri-Strips and bandages. The patient's anesthetic was reversed patient was taken back to the recovery room in stable condition and further training and education will be given to the patient regarding how to use the new InterStim therapy. CPT codes: 42152 -Lead placement CPT codes: 80789 - Batterry Generator placement Surgical Findings: all lead good Complications Complications: No Admit VTE Documentation VTE Mechan Device Prophylaxis: SCD's VTE Pharm Prophylaxis ordered?: No
--- NOTE | 2024-07-13 08:24 | PCM.POST.ANE ---
Anesthesia: Postop Eval I Current Vital Signs Temperature: 98.0 F Pulse Rate: 66 Blood Pressure: 116/65 Respiratory Rate: 20 Pulse Ox: 98 Oxygen Delivery Method: Room Air Assessment Airway patent: Yes Spontaneous unlabored respirations: Yes Mental status: Awake and Calm nausea: No Vomiting: No Anesthesia Complication: No Fluid Hydration Crystalloid volume administer (ml): 400 Total IV fluid infused: 400 Progress Note Anesthesia document: Postop Eval 1 completed: Yes
[2024-07-13] MEDS: Acetaminophen 325 MG Tablet 650 MG PO (09:19)
[2024-07-13] MEDS: oxyCODONE 5 MG Tablet PO (09:19)
--- NOTE | 2024-07-13 09:35 | POSTOPAN2_ITS ---
Anesthesia Postop Eval I Sum Postop Eval Completion status Anesthesia document: Postop Eval 1 completed: Yes Anesthesia Postop Eval I Summary Anesthesia Postop Eval I Summary: Anesthesia Postop Eval I: Assessment Summary Airway patent Yes 07/13/24 08:25 [email or web address] Spontaneous unlabored Yes 07/13/24 08:25 [email or web address] respirations Mental status Awake,Calm 07/13/24 08:25 [email or web address] nausea No 07/13/24 08:25 [email or web address] Vomiting No 07/13/24 08:25 [email or web address] Anesthesia Postop Eval I: Fluid Summary Crystalloid volume administer 400 07/13/24 08:25 [email or web address] (ml) Colloids volume administered ( ml) Blood Product volume administered (ml) Total IV fluid infused 400 07/13/24 08:25 [email or web address] Anesthesia Postop Eval I: Summary Notes Anesthesia Complication No 07/13/24 08:25 [email or web address] Anesthesia Complication Comment: Post-operative progress note Anesthesia: Postop Eval II Evaluation Mental status: Awake and Calm Pain Level: 1 nausea: No Vomiting: No Complications Anesthesia Complication: No
--- NOTE | 2024-07-13 09:35 | PCM.POSTANE2 ---
Anesthesia Postop Eval I Sum Postop Eval Completion status Anesthesia document: Postop Eval 1 completed: Yes Anesthesia Postop Eval I Summary Anesthesia Postop Eval I Summary: Anesthesia Postop Eval I: Assessment Summary Airway patent Yes 07/13/24 08:25 [email or web address] Spontaneous unlabored Yes 07/13/24 08:25 [email or web address] respirations Mental status Awake,Calm 07/13/24 08:25 [email or web address] nausea No 07/13/24 08:25 [email or web address] Vomiting No 07/13/24 08:25 [email or web address] Anesthesia Postop Eval I: Fluid Summary Crystalloid volume administer 400 07/13/24 08:25 [email or web address] (ml) Colloids volume administered ( ml) Blood Product volume administered (ml) Total IV fluid infused 400 07/13/24 08:25 [email or web address] Anesthesia Postop Eval I: Summary Notes Anesthesia Complication No 07/13/24 08:25 [email or web address] Anesthesia Complication Comment: Post-operative progress note Anesthesia: Postop Eval II Evaluation Mental status: Awake and Calm Pain Level: 1 nausea: No Vomiting: No Complications Anesthesia Complication: No
== END 2024-07-13 09:45 | disposition home or self-care (01) ==
LOC: SDC 06:02 → AC 06:04
PROVIDERS: PCP Physician Assistant; Referring Provider Urology; Visit Provider Urology
PROC: (CPT 64581; principal; 2024-07-13 07:20)
DX: R35.0 Frequency of micturition (principal); N39.41 Urge incontinence; J45.909 Unspecified asthma, uncomplicated
CPT/HCPCS: 64581; 64590; 00300; 72170; 76000; C1787; C1767; C1820; J2405